=== PATIENT | male | born 1950 | race Caucasian/White ===

== ENCOUNTER 2018-12-23 05:05 | Inpatient (IN) | payer MEDICARE, OTHER ==
[2018-12-23] VITALS (58 sets, daily range): BP systolic 102–221; BP diastolic 51–110; PULSE 33–77; RESP 14–32; Ht 185.4 cm; Wt 136.3 kg
[~2018-12-23] VITALS: Ht 185.4 cm; Wt 136.3 kg
[2018-12-23] MEDS ORDERED: SODIUM CHLORIDE 0.9% 500 ML BAG IV* STA (05:26)
[2018-12-23] MEDS ORDERED: PROPOFOL 100 ML IV STA (05:26)
[2018-12-23] MEDS ORDERED: VECURONIUM 100 MG in DEXTROSE 5% 100 ML IV ONE (05:26)
[2018-12-23] MEDS ORDERED: ALPR0.5T6 PO (05:45)
[2018-12-23] MEDS ORDERED: CAPT25TA3 PO (05:45)
[2018-12-23] MEDS ORDERED: NAPR-985 PO (05:45)
[2018-12-23] MEDS ORDERED: MTF1000T PO (05:45)
[2018-12-23] MEDS ORDERED: ENAL20TA PO (05:45)
[2018-12-23] MEDS ORDERED: LACT10SO36 PO (05:45)
[2018-12-23] MEDS ORDERED: RIVA20TA5 PO (05:45)
[2018-12-23] MEDS ORDERED: ATOR40TA68 PO (05:45)
[2018-12-23] MEDS: SOD CHLORIDE 0.9% 1,000 ML IV SCH ×3 (05:55→20:39)
[2018-12-23] MEDS ORDERED: DOPamine-D5W 1.6 MG/ML 250 ML IV SCH (06:00)
[2018-12-23] MEDS ORDERED: NACL 0.9% 3 ML SYG IV SCH (06:00)
[2018-12-23] MEDS ORDERED: ONDANSETRON 4 MG INJ IV PRN (06:00)
--- NOTE | 2018-12-23 06:04 | ERD ---
ER Documentation Chief Complaint Chief Complaint CARDIAC ARREST; ROSC HPI 68-year-old male here with cardiac arrest. Lost pulses twice in the field. Combitube placed. History is limited per EMS. ROS All systems reviewed and are negative except as per history of present illness. Medications Home Meds Reported Medications Lactulose (Generlac) 10 Gm/15 Ml Solution, 10 GM PO DAILY 12/23/18 Rivaroxaban* (Xarelto*) 20 Mg Tablet, 20 MG PO WITH DINNER, TAB 12/23/18 Metformin* (Glucophage*) 1,000 Mg Tablet, 1000 MG PO BID, #60 TAB 12/23/18 Atorvastatin* (Atorvastatin*) 40 Mg Tablet, 40 MG PO QHS, #30 TAB 12/23/18 Naproxen* (Naprosyn*) 500 Mg Tablet, 500 MG PO DAILY, TAB 12/23/18 Alprazolam* (Alprazolam*) 0.5 Mg Tablet, 0.5 MG PO Q8H PRN for ANXIETY, TAB 12/23/18 Enalapril Maleate* (Enalapril Maleate*) 20 Mg Tablet, 20 MG PO DAILY for 30 Days, #60 12/23/18 Captopril* (Captopril*) 25 Mg Tablet, 25 MG PO BID for 30 Days, #60 12/23/18 Allergies Allergies: Coded Allergies: No Known Allergy (Unverified , 12/23/18) Physical Exam Vitals Vital Signs Date Temp Pulse Resp B/P (MAP) Pulse Ox O2 O2 Flow FiO2 Time Delivery Rate 12/23/18 91 16 96/62 (73) 95 Mechanical 05:46 Ventilator 12/23/18 112 18 94 100 05:35 12/23/18 98.9 92 14 159/78 94 05:07 (105) Physical Exam Const: Obtunded Head: Atraumatic Eyes: Normal Conjunctiva ENT: Normal External Ears, Nose and Mouth. Neck: Full range of motion. No meningismus. Resp: Clear to auscultation bilaterally Cardio: Regular rate and rhythm, no murmurs Abd: Soft, non tender, non distended. Normal bowel sounds Skin: No petechiae or rashes Back: No midline or flank tenderness Ext: No cyanosis, or edema Neur: Obtunded Psych: Deferred Result Diagram: 12/23/18 0515 Results 24 hrs Laboratory Tests Test 12/23/18 05:15 12/23/18 05:23 12/23/18 05:25 White Blood Count 11.7 10^3/ul Red Blood Count 5.55 10^6/ul Hemoglobin 15.5 g/dl Hematocrit 52.2 % Mean Corpuscular Volume 94.1 fl Mean Corpuscular Hemoglobin 27.9 pg Mean Corpuscular 29.7 g/dl Hemoglobin Concent Red Cell Distribution Width 13.2 % Platelet Count 156 10^3/UL Mean Platelet Volume 10.5 fl Immature Granulocytes % 4.200 % Neutrophils % 47.4 % Lymphocytes % 38.9 % Monocytes % 6.7 % Eosinophils % 2.1 % Basophils % 0.7 % Nucleated Red Blood Cells % 0.0 /100WBC Immature Granulocytes # 0.490 10^3/ul Neutrophils # 5.5 10^3/ul Lymphocytes # 4.5 10^3/ul Monocytes # 0.8 10^3/ul Eosinophils # 0.2 10^3/ul Basophils # 0.1 10^3/ul Nucleated Red Blood Cells # 0.0 10^3/ul Prothrombin Time 19.6 Sec Prothrombin Time Ratio 1.5 INR International Normalized Ratio 1.65 Activated Partial Thromboplast 46.3 Sec Time Bedside Glucose 170 mg/dL POC Venous Lactate 10.0 mmol/L Current Medications Medications Dose Sig/[place] Start Time Status Last (Trade) Ordered Route PRN Stop Time Admin Dose Reason Admin Sodium 500 ml ONCE STAT 12/23/18 DC Chloride IV* 05:26 (NS) 12/23/18 05:27 Propofol 100 ml @ ONCE STAT 12/23/18 4.091 mls/ IV 05:26 hr 12/24/18 05:52 Vecuronium 100 ml @ [id number] 12/23/18 [place] 100 8.18 mls/hr ONCE IV 05:26 mg/ Dextrose 12/23/18 17:39 Sodium 1,000 ml @ Q10H IV 12/23/18 12/23/18 Chloride 100 mls/hr 05:44 05:55 IV Flush 3 ml PER 12/23/18 (NS 3 ml) PROTOCOL IV 06:00 Ondansetron 4 mg Q6H PRN 12/23/18 HCl (Zofran IV 06:00 Inj) NAUSEA/VOMITI NG 40 mg DAILY@06 12/23/18 Pantoprazole IV 06:00 (Protonix Iv) Procedures/MDM Emergency department course: Patient lost pulses multiple times in the emergency department. ACLS protocol initiated. Please see nurse's ACLS code sheet. We regained pulses. On-call STEMI cardiology is notified as long with on-call hospitalist. Patient will be going to [facility]ally Impaired [facility]. Started on dopamine EKG: Rate/Rhythm: ST depressions in V4 V5 V6 QRS, ST, T-waves: [No changes consistent w/ acute ischemia] Impression: Posterior wall NE Chest X-ray 1V Interpreted by me: Soft Tissue: No acute abnormalities Bones: No acute abnormalities Mediastinum/Cardiac Silhouette/Lungs: ET tube in good position. Central line in good position. Central Line Placement by me: Patient consented, sterilely draped, full prep, gown, glove, mask, time out performed. Anesthesia: 1% lidocaine locally Location: Left subclavian Device: Multiple lumen Technique: Seldinger technique. Secured with suture. Results: Venous return from all ports with easy saline flush. No complications. [Chest X-ray 1V Interpreted by me: Central line in SVC, Normal soft tissue, No evidence of pneumothorax.] Critical Care: Time: 41 minutes, independent of any separately billable procedural time Treatments/Evaluations: Close monitoring and treatment of unstable vital signs, cardiorespiratory, and neurologic status, while maintaining tight balance of fluid, respiratory, and cardiac interventions. Medical decision making: Unfortunate 68-year-old male with [place]. Started on dopamine central line placed hypothermia initiated. Assistant Finance Director and hospitalist made aware. Patient to go to . Endotracheal Intubation by me: Pre assessment performed. See preceding note for details. Pre-oxygenation performed with 100% oxygen RSI: Performed w/o complication or hypoxic events. Medications as ordered. Blade: [Mac 4] ET Tube: 8.0 cm Depth: 22 cm at the lip Intubation confirmed by colorimetric CO2, equal breath sounds, quiet over the stomach. Chest X-ray 1V Interpreted by me: 2 cm above the helena ET tube. Normal soft tissue, No pneumothorax. Departure Diagnosis: Primary Impression: Cardiac arrest Condition: Critical ELADIA MEDRANO Dec 23, 2018 06:04
--- NOTE | 2018-12-23 06:21 | HP ---
Date/Time of Note Date/Time of Note DATE: 12/23/18 TIME: 06:21 Assessment/Plan VTE Prophylaxis Pharmacological prophylaxis: other Lines/Catheters IV Catheter Type (from Nrs): Saline Lock Assessment/Plan Hospital Course Objective Physical exam General: Patient is intubated, nonresponsive Mentation: Patient is not alert or oriented Head: Normocephalic atraumatic Eyes: EOMI, pupils sluggishly and minimally reactive to light Neck: Supple, nontender, midline Respiratory: Clear to auscultation bilaterally Cardiovascular: regular rate, no obvious murmurs Gastrointestinal: non-tender to palpation, bowel sounds heard. Neurological: Unable to assess, unknown if due to cardiac arrest or due to intubation medication Assessment and plan Cardiopulmonary arrest -Severe ST depressions, likely cardiac cause, on-call ST elevated MD gamer on his way to perform cardiac catheterization -Hypothermia protocol ordered per ED physician -Cardiology recommendations appreciated -Troponins pending, currently negative however likely still on the upslope Acute hypoxic respiratory distress -Secondary to above cardiopulmonary arrest -Intubated -Pulmonology recommendations appreciated Lactic acidosis -Likely secondary to above hypoxic respiratory distress and cardiopulmonary arrest Elevated phosphorus -Likely secondary to above, monitor Elevated INR, PT, PTT -Unknown cause, question cirrhosis? -Patient on his way to cardiac cath, however I recommend further imaging and lab work to investigate once stable ?Diabetes mellitus -Questionable as the report is from the emergency personnel here say, however glucose is elevated, will use sliding scale glucose for now and adjust as needed Disposition -Patient on his way to cardiac cath, will subsequently undergo hypothermia protocol in the ICU, cardiology recommendations as well as pulmonology recommendations appreciated Result Diagram: 12/23/18 0515 12/23/18 0515 Results 24hrs Laboratory Tests Test 12/23/18 05:15 12/23/18 05:23 12/23/18 05:25 White Blood Count 11.7 H Red Blood Count 5.55 Hemoglobin 15.5 Hematocrit 52.2 H Mean Corpuscular Volume 94.1 Mean Corpuscular Hemoglobin 27.9 L Mean Corpuscular Hemoglobin Concent 29.7 L Red Cell Distribution Width 13.2 Platelet Count 156 Mean Platelet Volume 10.5 H Immature Granulocytes % 4.200 H Neutrophils % 47.4 Lymphocytes % 38.9 Monocytes % 6.7 Eosinophils % 2.1 Basophils % 0.7 Nucleated Red Blood Cells % 0.0 Immature Granulocytes # 0.490 H Neutrophils # 5.5 Lymphocytes # 4.5 H Monocytes # 0.8 Eosinophils # 0.2 Basophils # 0.1 Nucleated Red Blood Cells # 0.0 Prothrombin Time 19.6 H Prothrombin Time Ratio 1.5 INR International Normalized Ratio 1.65 Activated Partial Thromboplast Time 46.3 H Sodium Level 140 Potassium Level 4.2 Chloride Level 100 Carbon Dioxide Level 18 L Anion Gap 22 H Blood Urea Nitrogen 11 Creatinine 1.06 Est Glomerular Filtrat Rate mL/min > 60 Glucose Level 254 H Calcium Level 8.9 Phosphorus Level 9.6 H Magnesium Level 2.2 Total Bilirubin 0.4 Direct Bilirubin 0.00 Indirect Bilirubin 0.4 Aspartate Amino Transf (AST/SGOT) 54 H Alanine Aminotransferase (ALT/SGPT) 29 Alkaline Phosphatase 90 Troponin I 0.025 Total Protein 6.6 Albumin 3.9 Globulin 2.70 Albumin/Globulin Ratio 1.44 Bedside Glucose 170 POC Venous Lactate 10.0 *H HPI/ROS Admit Date/Time Admit Date/Time Hx of Present Illness Patient is a 68-year-old gentleman currently intubated who suffered cardiac arrest x3 in the field and currently is not responsive to noxious stimuli. Patient past medical history is uncertain at this time, however according to emergency personnel, patient does have a history of diabetes and insomnia. Patient was found down by his friend or roommate and last known well time was 3 AM. Patient coded twice in the field and coded once in the ED, ST depressions were found by ED physician who promptly called on-call STEMI gamer who is currently on his way to perform cardiac cath. HPI is limited as there are no family members at bedside and story is only secondhand from emergency personnel. Patient is nonresponsive at this time, HPI is limited. PMH/Family/Social Past Medical History Medications Current Medications Propofol 100 ml @ 4.091 mls/ hr ONCE STAT IV Last administered on 12/23/18at 06:02; Admin Dose 4.091 MLS/HR; Start 12/23/18 at 05:26; Stop 12/24/18 at 05:52 Vecuronium [place] 100 mg/ Dextrose 100 ml @ 8.18 mls/hr [id number] ONCE IV ; Start 12/23/18 at 05:26; Stop 12/23/18 at 17:39 Sodium Chloride 1,000 ml @ 100 mls/hr Q10H IV Last administered on 12/23/18at 05:55; Admin Dose 100 MLS/HR; Start 12/23/18 at 05:44 IV Flush (NS 3 ml) 3 ml PER PROTOCOL IV ; Start 12/23/18 at 06:00 Ondansetron HCl (Zofran Inj) 4 mg Q6H PRN IV NAUSEA/VOMITING; Start 12/23/18 at 06:00 Pantoprazole (Protonix Iv) 40 mg DAILY@06 IV ; Start 12/23/18 at 06:00 Dopamine HCl/ Dextrose 250 ml @ 10.227 mls/ hr TITRATE IV Last administered on 12/23/18at 06:02; Admin Dose 25.568 MLS/HR; Start 12/23/18 at 06:00 Miscellaneous Information (* Miscellaneous Pharmacy Order) Discontinue current oral sulfonylur... ONCE ONCE XX ; Start 12/23/18 at 06:30; Stop 12/23/18 at 06:31; Status UNV Diagnostic Test (Pha) (Accu-Chek) XX ; Start 12/24/18 at 02:00; Status UNV Miscellaneous Information (* Miscellaneous Pharmacy Order) HYPOGLYCEMIA PROTOCOL w... ONCE ONCE XX ; Start 12/23/18 at 06:30; Stop 12/23/18 at 06:31; Status UNV Insulin Aspart (Novolog Insulin Pen) NOVOLOG *MILD* ALGORITHM Q4 SC ; Start 12/23/18 at 09:00; Status UNV Miscellaneous Information (* Miscellaneous Pharmacy Order) Discontinue all previ... ONCE ONCE XX ; Start 12/23/18 at 06:30; Stop 12/23/18 at 06:31; Status UNV Coded Allergies: No Known Allergy (Unverified , 12/23/18) Exam/Review of Systems Vital Signs Vitals Vital Signs Date Temp Pulse Resp B/P (MAP) Pulse Ox O2 O2 Flow FiO2 Time Delivery Rate 12/23/18 96 18 128/101 95 Mechanical 06:03 (110) Ventilator 12/23/18 100 05:35 12/23/18 98.9 05:07 CHRISTIE JEFFERS Dec 23, 2018 06:21
[2018-12-23] MEDS ORDERED: HEPARIN 1000 UNITS/ML 10 ML INJ ONE ×2 (06:27→07:28)
[2018-12-23] MEDS ORDERED: IODIXANOL LOCM 100 ML BTL ONE (06:28)
[2018-12-23] MEDS ORDERED: LIDOCAINE 1% (MDV) 20 ML INJ ONE (06:28)
[2018-12-23] MEDS ORDERED: NITROGLYCERIN (IC) 100 MCG/ML INJ ONE (06:28)
[2018-12-23] MEDS ORDERED: VERAPAMIL 5 MG INJ ONE (06:28)
[2018-12-23] MEDS ORDERED: GLUCOSE GEL 15 GRAM TUBE BUCCAL PRN (06:30)
[2018-12-23] MEDS ORDERED: DEXTROSE 50% 50 ML SYRINGE IV PRN ×4 (06:30→10:00)
[2018-12-23] MEDS ORDERED: GLUCOSE GEL 15 GRAM TUBE PO PRN ×2 (06:30)
[2018-12-23] MEDS ORDERED: GLUCAGON 1 MG INJ IM PRN (06:30)
--- NOTE | 2018-12-23 06:33 | CONS ---
Assessment/Plan Assessment/Plan Hospital Course (Demo Recall) Cardiac arrest with ROSC: with diffuse EKG changes, ischemia as the etiology is possible. Electrolytes ok. Will proceed with cardiac cath. Other causes will also need to be evaluated after Lactic acidosis: due to hypoperfusion Acute respiratory failure: intubated due to arrest CAD s/p prior PCI DM HTN ?reason for Xarelto -expedited cardiac cath for evaluation of above -hypothermia immediately after -further recs pending above >40 min critical care time Consultation Date/Type/Reason Admit Date/Time Type of Consult Cardiology Reason for Consultation cardiac arrest with ROSC Requesting Provider: ELADIA MEDRANO Date/Time of Note DATE: 12/23/18 TIME: 06:25 Hx of Present Illness 68 yo M with a h/o DM, CAD, HTN, on Xarelto for ?afib vs DVT/PE, who per report was found unresponsive by his friend and so 911 was called who found him in full arrest. ROSC was achieved in the field and the pt was intubated. In the ER he had PEA arrest again and again ROSC was achieved. EKG showed diffuse significant ST depressions diffusely with RAYRAY in aVR concerning for global ischemia. Adán fields is at bedside and notes pt has had at least one prior stent. per HPI Past Medical History unable to assess. Home Meds Reported Medications Lactulose (Generlac) 10 Gm/15 Ml Solution, 10 GM PO DAILY 12/23/18 Rivaroxaban* (Xarelto*) 20 Mg Tablet, 20 MG PO WITH DINNER, TAB 12/23/18 Metformin* (Glucophage*) 1,000 Mg Tablet, 1000 MG PO BID, #60 TAB 12/23/18 Atorvastatin* (Atorvastatin*) 40 Mg Tablet, 40 MG PO QHS, #30 TAB 12/23/18 Naproxen* (Naprosyn*) 500 Mg Tablet, 500 MG PO DAILY, TAB 12/23/18 Alprazolam* (Alprazolam*) 0.5 Mg Tablet, 0.5 MG PO Q8H PRN for ANXIETY, TAB 12/23/18 Enalapril Maleate* (Enalapril Maleate*) 20 Mg Tablet, 20 MG PO DAILY for 30 Days, #60 12/23/18 Captopril* (Captopril*) 25 Mg Tablet, 25 MG PO BID for 30 Days, #60 2/13/19 Medications Current Medications Propofol 100 ml @ 4.091 mls/ hr ONCE STAT IV Last administered on 12/23/18at 06:02; Admin Dose 4.091 MLS/HR; Start 12/23/18 at 05:26; Stop 12/24/18 at 05:52 Vecuronium [place] 100 mg/ Dextrose 100 ml @ 8.18 mls/hr [id number] ONCE IV ; Start 12/23/18 at 05:26; Stop 12/23/18 at 17:39 Sodium Chloride 1,000 ml @ 100 mls/hr Q10H IV Last administered on 12/23/18at 05:55; Admin Dose 100 MLS/HR; Start 12/23/18 at 05:44 IV Flush (NS 3 ml) 3 ml PER PROTOCOL IV ; Start 12/23/18 at 06:00 Ondansetron HCl (Zofran Inj) 4 mg Q6H PRN IV NAUSEA/VOMITING; Start 12/23/18 at 06:00 Pantoprazole (Protonix Iv) 40 mg DAILY@06 IV ; Start 12/23/18 at 06:00 Dopamine HCl/ Dextrose 250 ml @ 10.227 mls/ hr TITRATE IV Last administered on 12/23/18at 06:02; Admin Dose 25.568 MLS/HR; Start 12/23/18 at 06:00 Miscellaneous Information (* Miscellaneous Pharmacy Order) Discontinue current oral sulfonylur... ONCE ONCE XX ; Start 12/23/18 at 06:30; Stop 12/23/18 at 06:31 Diagnostic Test (Pha) (Accu-Chek) 1 02 XX ; Start 12/24/18 at 02:00 Miscellaneous Information (* Miscellaneous Pharmacy Order) HYPOGLYCEMIA PROTOCOL w... ONCE ONCE XX ; Start 12/23/18 at 06:30; Stop 12/23/18 at 06:31 Insulin Aspart (Novolog Insulin Pen) NOVOLOG *MILD* ALGORITHM Q4 SC ; Start 12/23/18 at 09:00 Miscellaneous Information (* Miscellaneous Pharmacy Order) Discontinue all previ... ONCE ONCE XX ; Start 12/23/18 at 06:30; Stop 12/23/18 at 06:31 Allergies: Coded Allergies: No Known Allergy (Unverified , 12/23/18) Exam/Review of Systems Vital Signs Vitals Vital Signs Date Temp Pulse Resp B/P (MAP) Pulse Ox O2 O2 Flow FiO2 Time Delivery Rate 12/23/18 96 18 128/101 95 Mechanical 06:03 (110) Ventilator 12/23/18 100 05:35 12/23/18 98.9 05:07 Exam Constitutional: No alert Head: normocephalic, atraumatic ENMT: intubated Neck: supple, jvd (9cm) Respiratory: diminished breath sounds; No clear to auscultation Cardiovascular: regular rate and rhythm, systolic murmur (2/6 DMITRI); No edema Gastrointestinal: soft; No distended Neurological: No nl mental status, No nl speech Additional Comments EKG: sinus, diffuse deep ST depressions with ST elevation aVR Labs Result Diagram: 12/23/1815 12/23/18 0515 Results 24hrs Laboratory Tests Test 12/23/18 05:15 12/23/18 05:23 12/23/18 05:25 White Blood Count 11.7 H Red Blood Count 5.55 Hemoglobin 15.5 Hematocrit 52.2 H Mean Corpuscular Volume 94.1 Mean Corpuscular Hemoglobin 27.9 L Mean Corpuscular Hemoglobin Concent 29.7 L Red Cell Distribution Width 13.2 Platelet Count 156 Mean Platelet Volume 10.5 H Immature Granulocytes % 4.200 H Neutrophils % 47.4 Lymphocytes % 38.9 Monocytes % 6.7 Eosinophils % 2.1 Basophils % 0.7 Nucleated Red Blood Cells % 0.0 Immature Granulocytes # 0.490 H Neutrophils # 5.5 Lymphocytes # 4.5 H Monocytes # 0.8 Eosinophils # 0.2 Basophils # 0.1 Nucleated Red Blood Cells # 0.0 Prothrombin Time 19.6 H Prothrombin Time Ratio 1.5 INR International Normalized Ratio 1.65 Activated Partial Thromboplast Time 46.3 H Sodium Level 140 Potassium Level 4.2 Chloride Level 100 Carbon Dioxide Level 18 L Anion Gap 22 H Blood Urea Nitrogen 11 Creatinine 1.06 Est Glomerular Filtrat Rate mL/min > 60 Glucose Level 254 H Calcium Level 8.9 Phosphorus Level 9.6 H Magnesium Level 2.2 Total Bilirubin 0.4 Direct Bilirubin 0.00 Indirect Bilirubin 0.4 Aspartate Amino Transf (AST/SGOT) 54 H Alanine Aminotransferase (ALT/SGPT) 29 Alkaline Phosphatase 90 Troponin I 0.025 Total Protein 6.6 Albumin 3.9 Globulin 2.70 Albumin/Globulin Ratio 1.44 Bedside Glucose 170 POC Venous Lactate 10.0 *H Medications Medications Current Medications Propofol 100 ml @ 4.091 mls/ hr ONCE STAT IV Last administered on 12/23/18at 06:02; Admin Dose 4.091 MLS/HR; Start 12/23/18 at 05:26; Stop 12/24/18 at 05:52 Vecuronium [place] 100 mg/ Dextrose 100 ml @ 8.18 mls/hr [id number] ONCE IV ; Start 12/23/18 at 05:26; Stop 12/23/18 at 17:39 Sodium Chloride 1,000 ml @ 100 mls/hr Q10H IV Last administered on 12/23/18at 05:55; Admin Dose 100 MLS/HR; Start 12/23/18 at 05:44 IV Flush (NS 3 ml) 3 ml PER PROTOCOL IV ; Start 12/23/18 at 06:00 Ondansetron HCl (Zofran Inj) 4 mg Q6H PRN IV NAUSEA/VOMITING; Start 12/23/18 at 06:00 Pantoprazole (Protonix Iv) 40 mg DAILY@06 IV ; Start 12/23/18 at 06:00 Dopamine HCl/ Dextrose 250 ml @ 10.227 mls/ hr TITRATE IV Last administered on 12/23/18at 06:02; Admin Dose 25.568 MLS/HR; Start 12/23/18 at 06:00 Miscellaneous Information (* Miscellaneous Pharmacy Order) Discontinue current oral sulfonylur... ONCE ONCE XX ; Start 12/23/18 at 06:30; Stop 12/23/18 at 06:31 Diagnostic Test (Pha) (Accu-Chek) 1 ea 02 XX ; Start 12/24/18 at 02:00 Miscellaneous Information (* Miscellaneous Pharmacy Order) HYPOGLYCEMIA PROTOCOL w... ONCE ONCE XX ; Start 12/23/18 at 06:30; Stop 12/23/18 at 06:31 Insulin Aspart (Novolog Insulin Pen) NOVOLOG *MILD* ALGORITHM Q4 SC ; Start 12/23/18 at 09:00 Miscellaneous Information (* Miscellaneous Pharmacy Order) Discontinue all prev i... ONCE ONCE XX ; Start 12/23/18 at 06:30; Stop 12/23/18 at 06:31 PHILIPPE BOLAND Dec 23, 2018 06:33
[2018-12-23] MEDS ORDERED: DEXTROSE 50% 50 ML SYRINGE ONE (07:00)
[2018-12-23] MEDS ORDERED: WATER ONE (07:00)
[2018-12-23] MEDS ORDERED: NA BICARBONATE 8.4% 50 ML SYG ONE (07:00)
[2018-12-23] MEDS ORDERED: DOPamine-D5W 1.6 MG/ML 250 ML ONE (07:00)
[2018-12-23] MEDS ORDERED: SODIUM CL BACTERIOSTATIC 30 ML INJ ONE (07:00)
[2018-12-23] MEDS ORDERED: [UNRECOGNIZED DRUG - OTHER] ONE (07:00)
[2018-12-23] MEDS ORDERED: CA CHLORIDE 10% 10 ML SYRINGE ONE (07:00)
[2018-12-23] MEDS ORDERED: EPINEPHrine 0.1 MG/ML SYG ONE (07:00)
[2018-12-23] MEDS ORDERED: hydrALAzine 20 MG INJ ONE (07:07)
[2018-12-23] MEDS ORDERED: NITROGLYCERIN 50 MG/D5W (PMX) 250 ML ONE (07:20)
[2018-12-23] MEDS: NITROGLYCERIN 50 MG/D5W (PMX) 250 ML IV SCH ×2 (08:00→14:51)
--- NOTE | 2018-12-23 08:13 | OPR ---
Date/Time of Note Date/Time of Note DATE: 12/23/18 TIME: 08:00 Operative Report Preoperative Diagnosis cardiac arrest Postoperative Diagnosis same Operation/Procedure Performed see details Surgeon see signature line Acid Tank Liner none Anesthesia Type: moderate sedation Estimated Blood Loss: minimal Transfusion none Specimen none Grafts/Implants none Complications none Procedure Description Procedure Date:12/23/2018 Learning Administrator/surgeon: Ed Carbone MD. Procedures Performed: 1)Left heart catheterization with selective left and right coronary angiography. 2)Left ventricle angiography 3)iFR of left main which was negative Pre-operative Diagnosis:cardiac arrest Post-operative Diagnosis:cardiac arrest Indications: 68 yo M with a h/o CAD, DM, HTN, who was found unresponsive and in cardiac arrest. ROSC was achieved and EKG showed diffuse ST depressions concerning for global ischemia. Description of Procedure: After emergency consent, the patient was brought to the cardiac catheterization lab. The procedure site was prepped and draped in usual manner. 2 mL lidocaine was injected into the right wrist. Next using the posterior wall technique, the 6/5 chadian sheath was inserted into the right radial artery. Next using the JL3.5 and JR4, selective angiography of the left and right coronary arteries were obtained. The pigtail was then advanced into the ventricle and hemodynamics obtained. Left ventricle angiography was obtained. Due to visually estimated 50% distal left main in some views, the decision was made to proceed with iFR of the left main. A 6 chadian JL 3.5 guide was advanced and engaged into the left coronary artery. After appropriate anticoagulation was given, the iFR angioplasty wire was advanced into the ostial LM and normalized and then advanced into the prox LAD. IFR was measured at 0.95. The RCA was not intervened upon as it was unlikely the culprit of the cardiac arrest. If the pt survives the hospitalization and mentation improves, will then proceed with PCI. Next all equipment was removed and hemostasis was achieved by TR band. Findings: Anatomy/Hemodynamics: Left main: distal tapering to about 40-50% LAD: prox stent patent, otherwise luminal irregularities Diagonal:luminal irregularities Circumflex:luminal irregularities Obtuse marginal:luminal irregularities RCA: prox 70-80% lesions PDA:luminal irregularities PLV:luminal irregularities LV angiography: EF 60%, no wall motion abnormalities LV:236/0 Ao:232/96 LVEDP:36 mmHg Contrast used:112 mL Fluoroscopy time: 5 min Medications used: Radial cocktail: heparin 2000, NTG 200, verapamil 2.5 NTG 200mcg x 2 intraarterial Heparin 5000 units prior to iFR Hydralazine 10mg IV x 2 NTG drip Equipment used: 6 chadian JL 3.5 guide iFR wire Estimated blood loss<10 mL. Specimen: none Grafts/implants: none Complications: none Assessment: Cardiac arrest: Though diffuse ischemia by EKG, the coronary findings do not support cardiac etiology. Left main iFR was negative and the RCA does not explain the arrest. CAD: The RCA was not intervened upon as it was unlikely the culprit of the cardiac arrest. If the pt survives the hospitalization and mentation improves, will then proceed with PCI. HTN: BP very elevated and up to 230s during cath despite meds Plan: -r/o ther causes of arrest -check stat head CT especially with uncontrolled HTN -check Utox -at some point eval for PE though already on Xarelto -check echo for RV function -hypothermia ED CARBONE Dec 23, 2018 08:12
[2018-12-23] MEDS ORDERED: MAGNESIUM SULFATE 2 GM/50 ML 50 ML IVPB ONE ×2 (08:30→15:30)
--- NOTE | 2018-12-23 08:30 | NUR ---
PT ADMITTED FROM [facility]. S/P LHC. R WRIST TR BAND IN PLACE. PT INTUBATED AND SEDATED. ON PROPOFOL AND NITRO DRIP. SBP >200, NITRO DRIP INCREASED. PT HAS COOLING PADS ON ALREADY. PT WITH L SUN CLAV TLC. PT WITH ETT 8, LIP 25, AC 20, TV500 100% P5. PT WITH F/C. LABS DRAWN PRIOR TO ICU ARRIVAL. WILL START HYPOTHERMIA COOLING.
--- NOTE | 2018-12-23 08:46 | NUR ---
HYPOTHERMIA COOLING STARTED. PT ON PROPOFOL, SEDATED -4/-5. PT DR SANTANA, START VECURONIUM.
--- NOTE | 2018-12-23 08:50 | NUR ---
Moved ETT in 3cm from 25 to 28 at this time
[2018-12-23] MEDS ORDERED: INSULIN ASPART [NOVOLOG] 3 ML PEN SC SCH (09:00)
[2018-12-23] MEDS: ACCU-CHEK XX SCH ×14 (10:00→23:08)
[2018-12-23] MEDS ORDERED: VECURONIUM 100 MG in DEXTROSE 5% 100 ML IV SCH (10:30)
[2018-12-23] MEDS ORDERED: PROPOFOL 100 ML IV SCH (10:30)
[2018-12-23] MEDS: PROPOFOL 100 ML IV SCH ×2 (11:07→19:04)
[2018-12-23] MEDS: PANTOPRAZOLE 40 MG INJ IV SCH (11:10)
[2018-12-23] MEDS: INSULIN HUMAN REGULAR 100 UNIT in SOD CHLORIDE 0.9% 99 ML IV SCH (11:42)
--- NOTE | 2018-12-23 11:45 | NUR ---
HYPOTHERMIA COOLING PHASE REACHED.
[2018-12-23] MEDS: FENTAnyl (DRIP) 1000 mcg/100mL 100 ML IV SCH (11:55)
--- NOTE | 2018-12-23 12:08 | NUR ---
SS NOTE: CONSULT PT ADMITTED FROM HOME DUE TO RESP. DISTRESS. RNJANELL REPORTED THAT PT HAD 2 EPISODES OF BEING PULSELESS ON HIS WAY TO THE HOSPITAL AND AGAIN IN ED. PT CURRENTLY INTUBATED AND ON HYPOTHERMIA PROTOCOL. PT'S S/O HAD NOTICED THAT HE WAS NOT BREATHING WELL AND HAD CALLED 911. SW MET WITH PT'S DTR, WILLIE WHO REPORTED THAT PT IS NOT AND LIVES ALONE. PT HAS BEEN INDEPENDENT WITH ADL'S PRIOR TO HIS HOSPITALIZATION. DTR REPORTED THAT PT HAS 2 DTRS AND 1 SON. DOES NOT HAVE AHCD AND CHILDREN WILL MAKE DECISIONS FOR PT NEEDED. SW ENCOURAGED DTR TO DISCUSS WITH HER SIBLINGS TO WHO WOULD BE PT'S SPOKESPERSON SO THAT THE MEDICAL TEAM WOULD KNOW WHO TO CONTACT WITH UPDATES AND IN CASE OF EMERGENCY. DTR VERBALIZED UNDERSTANDING. PT'S OTHER DTR IS LORNE , AND SON, RONNIE . SW WILL CONTINUE TO REMAIN AVAILABLE NEEDED. Addendum: 12/23/18 at 1242 by EUGENE MOTA LCSW JESUS NOTE: FAXED UPDATED FAMILY CONTACT INFO TO ADMITTING TO UPDATE PT'S FACE SHEET.
--- NOTE | 2018-12-23 12:29 | CONS ---
DATE OF ADMISSION: 12/23/2018 DATE OF CONSULTATION: 12/23/2018 REASON FOR CONSULTATION: Ventilator management, cardiopulmonary arrest. HISTORY OF PRESENT ILLNESS: This is an unfortunate 68-year-old gentleman who has multiple medical pr oblems including coronary artery disease, hypertension, hyperlipidemia, diabetes mellitus, who was pr eviously on anticoagulation, found unresponsive in full cardiac arrest, underwent CPR with return of circulation, was found to have diffuse ST depressions emergently taken to cardiac catheterization lab but no target lesions identified. Transferred to intensive care unit, placed on hypothermia protoco l. PAST MEDICAL HISTORY: As above. MEDICATIONS: Per chart. ALLERGIES: None. TOBACCO HISTORY: None. SYSTEMS REVIEW: A 12-point review of systems unable to perform. PHYSICAL EXAMINATION: GENERAL: Morbidly obese gentleman, orally intubated on mechanical ventilation, currently on hypother anusha protocol. VITAL SIGNS: Temperature is 34, pulse is 87, blood pressure 170/62, O2 saturation 96%, FIO2 of 100%. NECK: Supple. No JVD or lymphadenopathy. CARDIAC: S1, S2, no added sounds or murmurs. CHEST: Diminished air entry bilaterally. ABDOMEN: Soft, nontender. No guarding or rebound. EXTREMITIES: No cyanosis, clubbing, 1+ edema. NEUROLOGIC: Generalized weakness, unable to assess. LABORATORY DATA: White count 15.1, hemoglobin 17.2, platelets of 163. BUN 14, creatinine 1.24. Lac tic acid initially 6.7. Troponin 0.69. INR was 1.64. Arterial blood gas pH 7.242, pCO2 of 44, pO2 55 on 100% FIO2 and a PEEP of 5. IMPRESSION AND PLAN: 1. Cardiopulmonary arrest with no identified target lesions. 2. History of coronary artery disease. 3. History of diabetes mellitus. 4. Possible aspiration pneumonia. The patient will require: 1. Continued hypothermia protocol with the initiation of fentanyl and vecuronium. 2. Continue mechanical ventilation, adjust for metabolic acidosis. 3. Serial blood gases and Chem-7. 4. Obtain prior cardiac history. 5. Neurology evaluation if no significant improvement in the next 48 to 72 hours. 6. Deep vein thrombosis and gastrointestinal prophylaxis. 7. Antibiotics for likely aspiration pneumonia. Dictated By: ALFONSO SANTANA MD SV/LUBNA Conf#: [id number] DID#: [id number] CC: CHRISTIE JEFFERS MD;*EndCC*
[2018-12-23] MEDS: ARTIFICIAL TEARS 15 ML OPH BOTH EYES SCH ×2 (13:00→20:01)
[2018-12-23] MEDS ORDERED: ACETAMINOPHEN 325 MG TAB NGT PRN (13:00)
[2018-12-23] MEDS ORDERED: ARTIFICIAL TEARS 15 ML OPH BOTH EYES PRN (13:00)
[2018-12-23] MEDS: BUSPIRONE 5 MG TAB NGT SCH ×2 (14:37→22:53)
[2018-12-23] MEDS: OCULAR LUBRICANT 3.5 GM OPH OINT BOTH EYES SCH ×2 (14:38→20:01)
[2018-12-23] MEDS: ACETAMINOPHEN 325 MG TAB NGT SCH ×2 (14:38→22:04)
[2018-12-23] MEDS: PIPER-TAZO 3.375 GM IV (PMX) 100 ML IVPB SCH ×2 (14:45→21:55)
--- NOTE | 2018-12-23 15:45 | NUR ---
WOUND CARE ICU ROUNDS RECOMMENDATION: RECOMMENDATIONS: 1.OFFLOADING: Turning and repositioning q 2 hours Specialty Bed Low air loss surface Sacrococcyx: Cover with foam border dressing for prophylactic protection. Change foam dressing every 3 days and as needed. Assess skin under dressing every shift. 2. Heels off-loading: Pillows: Please ensure heels off bed when using pillows for off-loading Bilateral heels and ankles: Protect with foam dressing (Allevyn heels): Change foam dressing every 3 days and as needed. Assess skin under dressing every shift. 3. ACCORDION MAKER RELATED AREAS OF CONCERN -ETT Tube Reposition per RT 4. INCONTINENCE CARE: -Pericare: Cleanse with foam cleanser. Pat dry. Apply Barrier cream (Calazime) every shift and as needed. Eleni Palencia, MSN, RN, CCRN, WCC
[2018-12-23] MEDS ORDERED: SOD CHLORIDE 0.9% 500 ML IV ONE ×2 (16:00→18:00)
[2018-12-23] MEDS ORDERED: MAGNESIUM SULFATE 2 GM/50 ML 50 ML IVPB PRN (16:00)
--- NOTE | 2018-12-23 18:34 | PN ---
Date/Time of Note Date/Time of Note DATE: 12/23/18 TIME: 18:30 Assessment/Plan VTE Prophylaxis Risk score (from [facility])>0 risk: 11 SCD applied (from [facility]): Yes SCD contraindicated: low risk/ambulating Pharmacological prophylaxis: NA/contraindicated Pharm contraindication: anticoag not tolerated Lines/Catheters IV Catheter Type (from [facility] Central Line Central line still needed: Yes Urinary Cath still in place: No Assessment/Plan Hospital Course A/P 1 Out Of Hospital Arrest; sp cpr; cont cooling measures 2 CAD? 3 Htn 4 Tobacco 5 Oliguria/ Atn S: on cooling measures. updated family; no recent events apparently. has relatives that work here. O: sr PE no pallor/ c bruits/ droop reg s1s2 no mrg ctab/ mechanical bs dimin; nt nd; no rrg no edema/ Homans; dry lwr ext Result Diagram: 12/23/18 1802 12/23/18 0753 Results 24hrs Laboratory Tests Test 12/23/18 05:15 12/23/18 05:23 12/23/18 05:25 12/23/18 05:26 White Blood 11.7 H Count Red Blood Count 5.55 Hemoglobin 15.5 Hematocrit 52.2 H Mean Corpuscular 94.1 Volume Mean Corpuscular 27.9 L Hemoglobin Mean Corpuscular 29.7 L Hemoglobin Anca nt Red Cell 13.2 Distribution Width Platelet Count 156 Mean Platelet 10.5 H Volume Immature 4.200 H Granulocytes % Neutrophils % 47.4 Lymphocytes % 38.9 Monocytes % 6.7 Eosinophils % 2.1 Basophils % 0.7 Nucleated Red 0.0 Blood Cells % Immature 0.490 H Granulocytes # Neutrophils # 5.5 Lymphocytes # 4.5 H Monocytes # 0.8 Eosinophils # 0.2 Basophils # 0.1 Nucleated Red 0.0 Blood Cells # Prothrombin Time 19.6 H Prothrombin Time 1.5 Ratio INR 1.65 International Normalized Ratio Activated 46.3 H Partial Thrombop last Time Sodium Level 140 Potassium Level 4.2 Chloride Level 100 Carbon Dioxide 18 L Level Anion Gap 22 H Blood Urea 11 Nitrogen Creatinine 1.06 Est Glomerular > 60 Filtrat Rate mL/min Glucose Level 254 H Calcium Level 8.9 Phosphorus Level 9.6 H Magnesium Level 2.2 Total Bilirubin 0.4 Direct Bilirubin 0.00 Indirect 0.4 Bilirubin Aspartate Amino 54 H Transf (AST/SGOT ) Alanine 29 Aminotransferase (ALT/SGPT) Alkaline 90 Phosphatase Troponin I 0.025 Total Protein 6.6 Albumin 3.9 Globulin 2.70 Albumin/Globulin 1.44 Ratio Bedside Glucose 170 POC Venous 10.0 *H Lactate Blood Gas Blood arterial Specimen Source Arterial Blood 12/23/2018 6:20: Date Drawn 40 AM Arterial Blood 6.997 *L pH (Temp corrected) Arterial Blood 58.7 H pCO2 (Temp correct) Arterial Blood 160.1 H pO2 (Temp corrected) Arterial Blood 14.1 L HCO3 Arterial Blood -18.0 L Base Excess Arterial Blood 97.9 Oxygen Saturatio n Jack Test ACCEPTAB Arterial Blood Left Radial Gas Puncture Site Arterial 3.7 H Blood Carboxyhem oglobin Arterial Blood 0.5 Methemoglobin Blood Gas A-a O2 494.2 H Differential Oxyhemoglobin 93.8 Percent Blood Gas 37.0 Temperature Blood Gas 18.0 Respiration Rate Blood Gas Actual 22 Respiration Rate Blood Gas VENT - AC Modality FiO2 100.0 Blood Gas Tidal 500.0 Volume Blood Gas Low 5.0 PEEP Setting Blood Gas DR MEDRANO Critical Value Read Back Blood Gas TM Notified Whom Blood Gas 12/23/2018 6:29: Notified Time 44 AM Test 12/23/18 06:26 12/23/18 07:53 12/23/18 07:58 12/23/18 09:44 Urine Color STRAW Urine Clarity SLIGHTLY CLOUDY A Urine pH 7.0 Urine Specific 1.009 [place] Urine Ketones NEGATIVE Urine Nitrite NEGATIVE Urine Bilirubin NEGATIVE Urine NEGATIVE Urobilinogen Urine Leukocyte NEGATIVE Esterase Urine 5 Microscopic RBC Urine 3 Microscopic WBC Urine Bacteria FEW A Urine Hemoglobin 1+ H Urine Glucose NEGATIVE Urine Total 2+ H Protein White Blood 15.1 #H Count Red Blood Count 6.26 H Hemoglobin 17.2 Hematocrit 55.1 H Mean Corpuscular 88.0 Volume Mean Corpuscular 27.5 L Hemoglobin Mean Corpuscular 31.2 L Hemoglobin Anca nt Red Cell 13.2 Distribution Width Platelet Count 163 Mean Platelet 9.9 Volume Immature 2.700 H Granulocytes % Neutrophils % Segmented 82 H Neutrophils % (Manual) Band Neutrophils 6 H % (Manual) Lymphocytes % Lymphocytes % 9 L (Manual) Monocytes % Monocytes % 1 (Manual) Eosinophils % Eosinophils % 1 (Manual) Basophils % Metamyelocytes % 1 H (manual) Nucleated Red 0.2 H Blood Cells % Immature 0.410 H Granulocytes # Neutrophils # Neutrophils # 12.5 H (Manual) Band Neutrophils 0.9 H # Lymphocytes 1.3 (Manual) Lymphocytes # Monocytes # Monocytes # 0.1 L (Manual) Eosinophils # Basophils # Metamyelocytes # 0.1 H Nucleated Red Blood Cells # Platelet NORMAL Estimate Giant Platelets 1 H Polychromasia 2+ Poikilocytosis 1+ Anisocytosis 2+ Microcytosis 1+ Macrocytosis 2+ Prothrombin Time 19.5 H Prothrombin Time 1.5 Ratio INR 1.64 International Normalized Ratio Activated > 180.0 *H Partial Thrombop last Time Fibrinogen 348.0 Sodium Level 136 Potassium Level 5.5 H Chloride Level 103 Carbon Dioxide 18 L Level Anion Gap 15 #H Blood Urea 14 Nitrogen Creatinine 1.24 Est Glomerular 58 L Filtrat Rate mL/min Glucose Level 264 H Calcium Level 9.2 Magnesium Level 1.8 Troponin I 0.691 *H Amylase Level 81 Lipase 361 H Lactic Acid 6.7 *H Level Triglycerides 90 Level Cholesterol 166 Level LDL Cholesterol, 107 Calculated HDL Cholesterol 41 Cholesterol/HDL 4.0 Ratio Thyroid 5.460 H Stimulating Hormone (TSH) Bedside Glucose 220 Test 12/23/18 10:23 12/23/18 11:39 12/23/18 11:48 12/23/18 13:10 Blood Gas Blood arterial Specimen Source Arterial Blood 12/23/2018 10:35 Date Drawn :39 AM Arterial Blood 7.225 *L pH (Temp corrected) Arterial Blood 44.8 pCO2 (Temp correct) Arterial Blood 55.0 L pO2 (Temp corrected) Arterial Blood 18.6 L HCO3 Arterial Blood -9.7 L Base Excess Arterial Blood 88.2 L Oxygen Saturatio n Jack Test ACCEPTAB Arterial Blood Left Radial Gas Puncture Site Arterial 1.0 Blood Carboxyhem oglobin Arterial Blood 0.3 Methemoglobin Blood Gas A-a O2 618.4 H Differential Oxyhemoglobin 87.1 L Percent Blood Gas 34.9 Temperature Blood Gas 20.0 Respiration Rate Blood Gas Actual 20 Respiration Rate Blood Gas VENT - AC Modality FiO2 100.0 Blood Gas Tidal 500.0 Volume Blood Gas Low 5.0 PEEP Setting Blood Gas RLIM RN Critical Value Read Back Blood Gas TM Notified Whom Blood Gas 12/23/2018 10:43 Notified Time :24 AM Bedside Glucose 204 221 H Troponin I 2.510 *H Test 12/23/18 14:11 12/23/18 15:09 12/23/18 16:14 12/23/18 17:00 Bedside Glucose 192 172 172 Blood Gas Blood arterial Specimen Source Arterial Blood 12/23/2018 4:13: Date Drawn 44 PM Arterial Blood 7.311 L pH (Temp corrected) Arterial Blood 35.5 pCO2 (Temp correct) Arterial Blood 100.7 H pO2 (Temp corrected) Arterial Blood 18.2 L HCO3 Arterial Blood -8.3 L Base Excess Arterial Blood 97.9 Oxygen Saturatio n Jack Test ACCEPTAB Arterial Blood Left Radial Gas Puncture Site Arterial 0.3 Blood Carboxyhem oglobin Arterial Blood 0.5 Methemoglobin Blood Gas A-a O2 584.7 H Differential Oxyhemoglobin 97.1 Percent Blood Gas 33.7 Temperature Blood Gas 24.0 Respiration Rate Blood Gas Actual 24 Respiration Rate Blood Gas VENT - AC Modality FiO2 100.0 Blood Gas Tidal 550.0 Volume Blood Gas Low 8.0 PEEP Setting Blood Gas LORENA SILVERMAN Critical Value Read Back Blood Gas KEVIN JADE Notified Whom Blood Gas 12/23/2018 4:29: Notified Time 04 PM Test 12/23/18 17:07 12/23/18 18:01 12/23/18 18:02 Bedside Glucose 157 136 White Blood 14.8 H Count Red Blood Count 6.00 Hemoglobin 16.7 Hematocrit 51.6 Mean Corpuscular 86.0 Volume Mean Corpuscular 27.8 L Hemoglobin Mean Corpuscular 32.4 Hemoglobin Anca nt Red Cell 13.4 Distribution Width Platelet Count 149 Mean Platelet 9.5 Volume Immature 0.700 H Granulocytes % Neutrophils % 90.8 H Lymphocytes % 3.5 L Monocytes % 4.6 Eosinophils % 0.1 Basophils % 0.3 Nucleated Red 0.0 Blood Cells % Immature 0.110 H Granulocytes # Neutrophils # 13.4 H Lymphocytes # 0.5 L Monocytes # 0.7 Eosinophils # 0.0 Basophils # 0.0 Nucleated Red 0.0 Blood Cells # Exam/Review of Systems Exam Vitals Vital Signs Date Temp Pulse Resp B/P (MAP) Pulse Ox O2 O2 Flow FiO2 Time Delivery Rate 12/23/18 80 16:30 12/23/18 37 16:00 12/23/18 92.3 15:23 12/23/18 20 127/67 99 11:45 (87) 12/23/18 Mechanical 06:30 Ventilator Results Results 24hrs Laboratory Tests Test 12/23/18 05:15 12/23/18 05:23 12/23/18 05:25 12/23/18 05:26 White Blood 11.7 H Count Red Blood Count 5.55 Hemoglobin 15.5 Hematocrit 52.2 H Mean Corpuscular 94.1 Volume Mean Corpuscular 27.9 L Hemoglobin Mean Corpuscular 29.7 L Hemoglobin Anca nt Red Cell 13.2 Distribution Width Platelet Count 156 Mean Platelet 10.5 H Volume Immature 4.200 H Granulocytes % Neutrophils % 47.4 Lymphocytes % 38.9 Monocytes % 6.7 Eosinophils % 2.1 Basophils % 0.7 Nucleated Red 0.0 Blood Cells % Immature 0.490 H Granulocytes # Neutrophils # 5.5 Lymphocytes # 4.5 H Monocytes # 0.8 Eosinophils # 0.2 Basophils # 0.1 Nucleated Red 0.0 Blood Cells # Prothrombin Time 19.6 H Prothrombin Time 1.5 Ratio INR 1.65 International Normalized Ratio Activated 46.3 H Partial Thrombop last Time Sodium Level 140 Potassium Level 4.2 Chloride Level 100 Carbon Dioxide 18 L Level Anion Gap 22 H Blood Urea 11 Nitrogen Creatinine 1.06 Est Glomerular > 60 Filtrat Rate mL/min Glucose Level 254 H Calcium Level 8.9 Phosphorus Level 9.6 H Magnesium Level 2.2 Total Bilirubin 0.4 Direct Bilirubin 0.00 Indirect 0.4 Bilirubin Aspartate Amino 54 H Transf (AST/SGOT ) Alanine 29 Aminotransferase (ALT/SGPT) Alkaline 90 Phosphatase Troponin I 0.025 Total Protein 6.6 Albumin 3.9 Globulin 2.70 Albumin/Globulin 1.44 Ratio Bedside Glucose 170 POC Venous 10.0 *H Lactate Blood Gas Blood arterial Specimen Source Arterial Blood 12/23/2018 6:20: Date Drawn 40 AM Arterial Blood 6.997 *L pH (Temp corrected) Arterial Blood 58.7 H pCO2 (Temp correct) Arterial Blood 160.1 H pO2 (Temp corrected) Arterial Blood 14.1 L HCO3 Arterial Blood -18.0 L Base Excess Arterial Blood 97.9 Oxygen Saturatio n Jack Test ACCEPTAB Arterial Blood Left Radial Gas Puncture Site Arterial 3.7 H Blood Carboxyhem oglobin Arterial Blood 0.5 Methemoglobin Blood Gas A-a O2 494.2 H Differential Oxyhemoglobin 93.8 Percent Blood Gas 37.0 Temperature Blood Gas 18.0 Respiration Rate Blood Gas Actual 22 Respiration Rate Blood Gas VENT - AC Modality FiO2 100.0 Blood Gas Tidal 500.0 Volume Blood Gas Low 5.0 PEEP Setting Blood Gas DR MEDRANO Critical Value Read Back Blood Gas TM Notified Whom Blood Gas 12/23/2018 6:29: Notified Time 44 AM Test 12/23/18 06:26 12/23/18 07:53 12/23/18 07:58 12/23/18 09:44 Urine Color STRAW Urine Clarity SLIGHTLY CLOUDY A Urine pH 7.0 Urine Specific 1.009 [place] Urine Ketones NEGATIVE Urine Nitrite NEGATIVE Urine Bilirubin NEGATIVE Urine NEGATIVE Urobilinogen Urine Leukocyte NEGATIVE Esterase Urine 5 Microscopic RBC Urine 3 Microscopic WBC Urine Bacteria FEW A Urine Hemoglobin 1+ H Urine Glucose NEGATIVE Urine Total 2+ H Protein White Blood 15.1 #H Count Red Blood Count 6.26 H Hemoglobin 17.2 Hematocrit 55.1 H Mean Corpuscular 88.0 Volume Mean Corpuscular 27.5 L Hemoglobin Mean Corpuscular 31.2 L Hemoglobin Anca nt Red Cell 13.2 Distribution Width Platelet Count 163 Mean Platelet 9.9 Volume Immature 2.700 H Granulocytes % Neutrophils % Segmented 82 H Neutrophils % (Manual) Band Neutrophils 6 H % (Manual) Lymphocytes % Lymphocytes % 9 L (Manual) Monocytes % Monocytes % 1 (Manual) Eosinophils % Eosinophils % 1 (Manual) Basophils % Metamyelocytes % 1 H (manual) Nucleated Red 0.2 H Blood Cells % Immature 0.410 H Granulocytes # Neutrophils # Neutrophils # 12.5 H (Manual) Band Neutrophils 0.9 H # Lymphocytes 1.3 (Manual) Lymphocytes # Monocytes # Monocytes # 0.1 L (Manual) Eosinophils # Basophils # Metamyelocytes # 0.1 H Nucleated Red Blood Cells # Platelet NORMAL Estimate Giant Platelets 1 H Polychromasia 2+ Poikilocytosis 1+ Anisocytosis 2+ Microcytosis 1+ Macrocytosis 2+ Prothrombin Time 19.5 H Prothrombin Time 1.5 Ratio INR 1.64 International Normalized Ratio Activated > 180.0 *H Partial Thrombop last Time Fibrinogen 348.0 Sodium Level 136 Potassium Level 5.5 H Chloride Level 103 Carbon Dioxide 18 L Level Anion Gap 15 #H Blood Urea 14 Nitrogen Creatinine 1.24 Est Glomerular 58 L Filtrat Rate mL/min Glucose Level 264 H Calcium Level 9.2 Magnesium Level 1.8 Troponin I 0.691 *H Amylase Level 81 Lipase 361 H Lactic Acid 6.7 *H Level Triglycerides 90 Level Cholesterol 166 Level LDL Cholesterol, 107 Calculated HDL Cholesterol 41 Cholesterol/HDL 4.0 Ratio Thyroid 5.460 H Stimulating Hormone (TSH) Bedside Glucose 220 Test 12/23/18 10:23 12/23/18 11:39 12/23/18 11:48 12/23/18 13:10 Blood Gas Blood arterial Specimen Source Arterial Blood 12/23/2018 10:35 Date Drawn :39 AM Arterial Blood 7.225 *L pH (Temp corrected) Arterial Blood 44.8 pCO2 (Temp correct) Arterial Blood 55.0 L pO2 (Temp corrected) Arterial Blood 18.6 L HCO3 Arterial Blood -9.7 L Base Excess Arterial Blood 88.2 L Oxygen Saturatio n Jack Test ACCEPTAB Arterial Blood Left Radial Gas Puncture Site Arterial 1.0 Blood Carboxyhem oglobin Arterial Blood 0.3 Methemoglobin Blood Gas A-a O2 618.4 H Differential Oxyhemoglobin 87.1 L Percent Blood Gas 34.9 Temperature Blood Gas 20.0 Respiration Rate Blood Gas Actual 20 Respiration Rate Blood Gas VENT - AC Modality FiO2 100.0 Blood Gas Tidal 500.0 Volume Blood Gas Low 5.0 PEEP Setting Blood Gas RLIM RN Critical Value Read Back Blood Gas TM Notified Whom Blood Gas 12/23/2018 10:43 Notified Time :24 AM Bedside Glucose 204 221 H Troponin I 2.510 *H Test 12/23/18 14:11 12/23/18 15:09 12/23/18 16:14 12/23/18 17:00 Bedside Glucose 192 172 172 Blood Gas Blood arterial Specimen Source Arterial Blood 12/23/2018 4:13: Date Drawn 44 PM Arterial Blood 7.311 L pH (Temp corrected) Arterial Blood 35.5 pCO2 (Temp correct) Arterial Blood 100.7 H pO2 (Temp corrected) Arterial Blood 18.2 L HCO3 Arterial Blood -8.3 L Base Excess Arterial Blood 97.9 Oxygen Saturatio n Jack Test ACCEPTAB Arterial Blood Left Radial Gas Puncture Site Arterial 0.3 Blood Carboxyhem oglobin Arterial Blood 0.5 Methemoglobin Blood Gas A-a O2 584.7 H Differential Oxyhemoglobin 97.1 Percent Blood Gas 33.7 Temperature Blood Gas 24.0 Respiration Rate Blood Gas Actual 24 Respiration Rate Blood Gas VENT - AC Modality FiO2 100.0 Blood Gas Tidal 550.0 Volume Blood Gas Low 8.0 PEEP Setting Blood Gas LORENA SILVERMAN Critical Value Read Back Blood Gas KimMALICK RT Notified Whom Blood Gas 12/23/2018 4:29: Notified Time 04 PM Test 12/23/18 17:07 12/23/18 18:01 12/23/18 18:02 Bedside Glucose 157 136 White Blood 14.8 H Count Red Blood Count 6.00 Hemoglobin 16.7 Hematocrit 51.6 Mean Corpuscular 86.0 Volume Mean Corpuscular 27.8 L Hemoglobin Mean Corpuscular 32.4 Hemoglobin Anca nt Red Cell 13.4 Distribution Width Platelet Count 149 Mean Platelet 9.5 Volume Immature 0.700 H Granulocytes % Neutrophils % 90.8 H Lymphocytes % 3.5 L Monocytes % 4.6 Eosinophils % 0.1 Basophils % 0.3 Nucleated Red 0.0 Blood Cells % Immature 0.110 H Granulocytes # Neutrophils # 13.4 H Lymphocytes # 0.5 L Monocytes # 0.7 Eosinophils # 0.0 Basophils # 0.0 Nucleated Red 0.0 Blood Cells # Medications Medication Current Medications Sodium Chloride 1,000 ml @ 100 mls/hr Q10H IV Last administered on 12/23/18at 09:49; Admin Dose 100 MLS/HR; Start 12/23/18 at 05:44 IV Flush (NS 3 ml) 3 ml PER PROTOCOL IV ; Start 12/23/18 at 06:00 Ondansetron HCl (Zofran Inj) 4 mg Q6H PRN IV NAUSEA/VOMITING; Start 12/23/18 at 06:00 Pantoprazole (Protonix Iv) 40 mg DAILY@06 IV Last administered on 12/23/18at 11:10; Admin Dose 40 MG; Start 12/23/18 at 06:00 Diagnostic Test (Pha) (Accu-Chek) 1 ea 02 XX ; Start 12/24/18 at 02:00 Insulin Aspart (Novolog Insulin Pen) NOVOLOG *MILD* ALGORITHM Q4 SC ; Start 12/23/18 at 09:00; Status Hold Miscellaneous Information 1 ea NOTE XX ; Start 12/23/18 at 06:30 Glucose (Glutose) 15 gm Q15M PRN PO DECREASED GLUCOSE; Start 12/23/18 at 06:30 Glucose (Glutose) 22.5 gm Q15M PRN PO DECREASED GLUCOSE; Start 12/23/18 at 06:30 Dextrose (D50w Syringe) 25 ml Q15M PRN IV DECREASED GLUCOSE; Start 12/23/18 at 06:30 Dextrose (D50w Syringe) 50 ml Q15M PRN IV DECREASED GLUCOSE; Start 12/23/18 at 06:30 Glucagon (Glucagen) 1 mg Q15M PRN IM DECREASED GLUCOSE; Start 12/23/18 at 06:30 Glucose (Glutose) 15 gm Q15M PRN BUCCAL DECREASED GLUCOSE; Start 12/23/18 at 06:30 Fentanyl 100 ml @ 2.5 mls/hr TITRATE IV Last administered on 12/23/18at 11:55; Admin Dose 2.5 MLS/HR; Start 12/23/18 at 10:00 Diagnostic Test (Pha) (Accu-Chek) 1 ea Q1H XX Last administered on 12/23/18at 18:02; Admin Dose 1 EA; Start 12/23/18 at 10:00 Insulin Human Regular 100 unit/ Sodium Chloride 100 ml @ 0 mls/hr PER PROTOCOL IV Last administered on 12/23/18at 11:42; Admin Dose 2 MLS/HR; Start 12/23/18 at 10:00 Miscellaneous Information (* Miscellaneous Pharmacy Order) Treatment of Hypoglycemia: 1.BG 51... Per protocol XX ; Start 12/23/18 at 10:00 Dextrose (D50w Syringe) 25 ml Q15M PRN IV .DECREASED GLUCOSE; Start 12/23/18 at 10:00 Dextrose (D50w Syringe) 50 ml Q15M PRN IV .DECREASED GLUCOSE; Start 12/23/18 at 10:00 Vecuronium [place]ard 100 mg/ Dextrose 100 ml @ 0 mls/hr TITRATE IV ; Start 12/23/18 at 10:30 Propofol 100 ml @ 4.091 mls/ hr Q12H IV Last administered on 12/23/18at 11:07; Admin Dose 12.272 MLS/HR; Start 12/23/18 at 11:00 Piperacillin Sod/ Tazobactam Sod 100 ml @ 200 mls/hr Q8 IVPB Last administered on 12/23/18at 14:45; Admin Dose 200 MLS/HR; Start 12/23/18 at 14:00 Eye Lubricant (Akwa Oint) 1 applic Q6H BOTH EYES Last administered on 12/23/18at 14:38; Admin Dose 1 APPLIC; Start 12/23/18 at 13:00 Nitroglycerin/ Dextrose 250 ml @ 1.5 mls/hr TITRATE IV Last administered on 12/23/18at 14:51; Admin Dose 6 MLS/HR; Start 12/23/18 at 13:00 Buspirone HCl (Buspar) 30 mg Q8 NGT Last administered on 12/23/18at 14:37; Admin Dose 30 MG; Start 12/23/18 at 14:00 Acetaminophen (Tylenol Tab) 650 mg Q8 NGT Last administered on 12/23/18at 14:38; Admin Dose 650 MG; Start 12/23/18 at 14:00 Eye Lubricant (Artificial Tears Oph) 2 drop Q6H BOTH EYES Last administered on 12/23/18 13:00; Admin Dose 2 DROP; Start 12/23/18 at 19:00 Potassium Chloride 50 ml @ 50 mls/hr K PROTOCOL PRN IVPB PENDING LAB VALUE; Start 12/23/18 at 15:30 Magnesium Sulfate 50 ml @ 25 mls/hr PRN PRN IVPB MAG <2; Start 12/23/18 at 16:00 Midazolam HCl 50 ml @ 1 mls/hr TITRATE IV ; Start 12/23/18 at 16:30 Sodium Chloride 500 ml @ 500 mls/hr Q1H ONCE IV ; Start 12/23/18 at 18:00; Stop 12/23/18 at 18:59 Thiamine HCl (Vitamin B1) 100 mg DAILY IM ; Start 12/23/18 at 19:30 KELL VILLA MD Dec 23, 2018 18:34
--- NOTE | 2018-12-23 19:30 | NUR ---
END OF SHIFT NOTE. PT REMAINS INTUBATED AND SEDATED. VEC TURNED OFF FOR TOF 0/4. PROPOFOL 15MC TO BE SWITCHED TO VERSED, ENDORSED TO SUPERINTENDENT MARINE OIL TERMINAL RN. HR SB 35-37,SBP 130-140, PT ON NITRO DRIP @ 40MC. PT ON INSULIN DRIP 3 UNITS/HR, ALGO III. LAST B/G 135. PT ALSO ON FENTANYL DRIP, 25MC. HYPOTHERMIA COOLING STARTED AT 0846, COOLING TEMP REACHED AT 1145. PT HAD A YELLOW COLORED RING WITH SPARKLING STONE ON FINGER OF LEFT HAND WELL BOTTOM FULL DENTURES, BOTH GIVEN TO PT'S DAUGHTER WILLIE TO TAKE HOME. PT WITH F/C, LOW U/O 500ML NS BOLUS GIVEN. PER MD IF STILL LOW U/O, GIVE ANOTHER 500ML BOLUS. OGT IN PLACE. PT'S FAMILY STATED PT MAY HAVE TAKEN A TYPE OF VIAGRA, BUT UNSURE IF PT DID.
[2018-12-23] MEDS: THIAMINE 200 MG INJ IM SCH (20:10)
[2018-12-23] MEDS: MIDAZOLAM (DRIP) 50 mg/50 mL 50 ML IV SCH (21:18)
[2018-12-23] MEDS ORDERED: ALBUTEROL 0.083% (NEB) 2.5 MG/3 ML AMP HHN PRN (23:00)
[2018-12-24] VITALS (93 sets, daily range): BP systolic 53–176; BP diastolic 37–93; PULSE 47–85; RESP 20–30
[2018-12-24] MEDS: ACCU-CHEK XX SCH ×24 (00:01→23:00)
[2018-12-24] MEDS: OCULAR LUBRICANT 3.5 GM OPH OINT BOTH EYES SCH ×4 (01:02→19:40)
[2018-12-24] MEDS: ARTIFICIAL TEARS 15 ML OPH BOTH EYES SCH ×4 (01:02→19:39)
[2018-12-24] MEDS: PROPOFOL 100 ML IV SCH ×5 (01:10→20:05)
[2018-12-24] MEDS: POTASSIUM CHLORIDE 50 ML IVPB PRN ×2 (01:38→03:05)
[2018-12-24] MEDS ORDERED: ACCU-CHEK XX SCH (02:00)
[2018-12-24] MEDS: NITROGLYCERIN 50 MG/D5W (PMX) 250 ML IV SCH ×2 (02:29→07:10)
[2018-12-24] MEDS ORDERED: hydrALAzine 20 MG INJ IV ONE (06:11)
[2018-12-24] MEDS: ACETAMINOPHEN 325 MG TAB NGT SCH ×4 (06:14→21:32)
[2018-12-24] MEDS: PIPER-TAZO 3.375 GM IV (PMX) 100 ML IVPB SCH ×3 (06:14→21:31)
[2018-12-24] MEDS: BUSPIRONE 5 MG TAB NGT SCH ×3 (06:14→21:31)
[2018-12-24] MEDS: PANTOPRAZOLE 40 MG INJ IV SCH (06:40)
[2018-12-24] MEDS ORDERED: niCARdipine-NS 0.1MG/ML DRIP 200 ML IV SCH (07:00)
[2018-12-24] MEDS: SOD CHLORIDE 0.9% 1,000 ML IV SCH ×2 (07:21→20:06)
--- NOTE | 2018-12-24 07:59 | NUR ---
EOSS: Pt. remained in the maintenance phase of the TTM protocol. Pt. is set to start the rewarming process at 1145 today. Pt. remains intubated/sedated with FENTANYL @ 25mcg and PROPOFOL @ 50mcg. Initially was working on titrating Propofol down and using Versed instead however, pt. was still not getting their tidal volumes via vent as well as pts. BP started elevating. Pt. started getting his volumes and BP was WNL until early this morning when it started climbing again. Dr. Palmer was the hospitalist cushion maker overnight and was called and notified about the BP and that I was at max on Nitro @ 200mg and Propofol @ 50mcg. Per Dr. Palmer 10mg Hydralazine IV x1 was ordered, and then Cardene drip per Dr. Palmer was ordered due to little to no effect with hydralazine. ~06/0645 was administering eye medication and noticed a change in pupils, I re-assessed pts pupils and found Right eye to be 3mm and sluggish (previous 2mm sluggish) and the Left eye is now at 5mm and fixed (previous 2mm). Day shift RN- Shayan was shown change, he agreed and was notifying doctors. TOF @ 0/4 on last check. Blood sugars seem to have stabilized as only titrated insulin drip x1. Potassium came back @ 3.3 @ 0000 labs, per KCl protocol replaced with 2 bags of 10mEqs (20mEqs total over 2 hours). Current drips: Propofol @ 50mcg/ Fentanyl @ 25mcg/ Nitro @ 200mg/ Cardene @ 5mg/ Insulin 3U (algo 3), NS @ 100cc Current Vent settings: AC/28/550/60/8 -able to titrate FiO2 down from 80% to 60%, pt. saturating well with no desaturations All information has been endorsed to Shayan- day shift RN. Daughter ROSALIND at bedside and updated on current status, all questions answered.
[2018-12-24] MEDS: NORepinephrine 8MG/250 ML (PMX 250 ML IV SCH ×2 (09:07→20:08)
[2018-12-24] MEDS: THIAMINE 200 MG INJ IM SCH (09:10)
[2018-12-24] MEDS ORDERED: SOD CHLORIDE 0.9% 1,000 ML IV ONE (09:30)
--- NOTE | 2018-12-24 09:30 | NUR ---
PT HAD EPISODE OF LOW BP WHEN CARDENE WAS STARTED SHORTLY BEFORE. PT WAS MAXED ON NITRO DRIP (200MCG) + PROPOFOL 50MCG + CARDENE 5MG FOR HIGH BP >170S. CARDENE AND NITRO TURNED OFF, PROPOFOL DECREASED. DR SANTANA AND DR VILLA INFORMED. LEVO DRIP STARTED AND 1L NS BOLUS GIVEN. LEVO CURRENTLY AT 18MC AND SBP >110.
--- NOTE | 2018-12-24 09:54 | CONS ---
Consult Date/Type/Reason Admit Date/Time Dec 23, 2018 at 05:39 Initial Consult Date Type of Consult Pulmonary Requesting Provider: ELADIA MEDRANO Date/Time of Note DATE: 12/24/18 TIME: 09:52 Subjective Continues hypothermia protocol. Remains somnolent. Change in pupil size noted with decreased blood pressure requiring initiation of vasopressor support. Objective Vital Signs Date Temp Pulse Resp B/P (MAP) Pulse Ox O2 O2 Flow FiO2 Time Delivery Rate 12/24/18 77 25 165/70 100 07:30 (101) 12/24/18 91.3 07:01 12/24/18 60 05:49 12/23/18 Mechanical 06:30 Ventilator Intake and Output 12/23/18 12/23/18 12/24/18 1515:00 23:00 07:00 IntakeIntake Total 917.501 ml 2109.453 ml 1753.070 ml OutputOutput Total 431 ml 292 ml 497 ml BalanceBalance 486.501 ml 1817.453 ml 1256.070 ml Exam PHYSICAL EXAMINATION: GENERAL: Morbidly obese gentleman, orally intubated on mechanical ventilation, currently on hypothermia protocol. VITAL SIGNS: NECK: Supple. No JVD or lymphadenopathy. CARDIAC: S1, S2, no added sounds or murmurs. CHEST: Diminished air entry bilaterally. ABDOMEN: Soft, nontender. No guarding or rebound. EXTREMITIES: No cyanosis, clubbing, 1+ edema. NEUROLOGIC: Generalized weakness, unable to assess. Vent Setting Ventilator Support Mode: AC Fraction of Inspired Oxygen pe: 60 Positive End Expiratory Pressu: 8.0 Results/Medications Result Diagram: 12/24/18 0630 12/24/18 0630 Results 24 hrs Laboratory Tests Test 12/23/18 10:23 12/23/18 11:39 12/23/18 11:48 12/23/18 13:10 Blood Gas Blood arterial Specimen Source Arterial Blood 12/23/2018 10:35 Date Drawn :39 AM Arterial Blood 7.225 *L pH (Temp corrected ) Arterial Blood 44.8 pCO2 (Temp correct) Arterial Blood 55.0 L pO2 (Temp corrected ) Arterial Blood 18.6 L HCO3 Arterial Blood -9.7 L Base Excess Arterial Blood 88.2 L Oxygen Saturati on Jack Test ACCEPTAB Arterial Blood Left Radial Gas Puncture Site Arterial 1.0 Blood Carboxyhe moglobin Arterial Blood 0.3 Methemoglobin Blood Gas A-a 618.4 H O2 Differential Oxyhemoglobin 87.1 L Percent Blood Gas 34.9 Temperature Blood Gas 20.0 Respiration Rate Blood Gas 20 Actual Respiration Rat e Blood Gas VENT - AC Modality FiO2 100.0 Blood Gas Tidal 500.0 Volume Blood Gas Low 5.0 PEEP Setting Blood Gas RLIM RN Critical Value Read Back Blood Gas TM Notified Whom Blood Gas 12/23/2018 10:43 Notified Time :24 AM Bedside Glucose 204 221 H Troponin I 2.510 *H Test 12/23/18 14:11 12/23/18 15:09 12/23/18 16:14 12/23/18 17:00 Bedside Glucose 192 172 172 Blood Gas Blood Specimen arterial Source Arterial Blood 12/23/2018 4:13 Date Drawn :44 PM Arterial Blood 7.311 L pH (Temp corrected ) Arterial Blood 35.5 pCO2 (Temp correct) Arterial Blood 100.7 H pO2 (Temp corrected ) Arterial Blood 18.2 L HCO3 Arterial Blood -8.3 L Base Excess Arterial Blood 97.9 Oxygen Saturati on Jack Test ACCEPTAB Arterial Blood Left Radial Gas Puncture Site Arterial 0.3 Blood Carboxyhe moglobin Arterial Blood 0.5 Methemoglobin Blood Gas A-a 584.7 H O2 Differential Oxyhemoglobin 97.1 Percent Blood Gas 33.7 Temperature Blood Gas 24.0 Respiration Rate Blood Gas 24 Actual Respiration Rat e Blood Gas VENT - AC Modality FiO2 100.0 Blood Gas Tidal 550.0 Volume Blood Gas Low 8.0 PEEP Setting Blood Gas LORENA SILVERMAN Critical Value Read Back Blood Gas KEVIN RT Notified Whom Blood Gas 12/23/2018 4:29 Notified Time :04 PM Test 12/23/18 17:07 12/23/18 18:01 12/23/18 18:02 12/23/18 19:06 Bedside Glucose 157 136 135 White Blood 14.8 H Count Red Blood Count 6.00 Hemoglobin 16.7 Hematocrit 51.6 Mean 86.0 Corpuscular Volume Mean 27.8 L Corpuscular Hemoglobin Mean 32.4 Corpuscular Hemoglobin Conc ent Red Cell 13.4 Distribution Width Platelet Count 149 Mean Platelet 9.5 Volume Immature 0.700 H Granulocytes % Neutrophils % 90.8 H Lymphocytes % 3.5 L Monocytes % 4.6 Eosinophils % 0.1 Basophils % 0.3 Nucleated Red 0.0 Blood Cells % Immature 0.110 H Granulocytes # Neutrophils # 13.4 H Lymphocytes # 0.5 L Monocytes # 0.7 Eosinophils # 0.0 Basophils # 0.0 Nucleated Red 0.0 Blood Cells # Sodium Level 140 Potassium Level 3.6 Chloride Level 107 Carbon Dioxide 21 Level Anion Gap 12 Blood Urea 23 H Nitrogen Creatinine 1.59 H Est Glomerular 44 L Filtrat Rate mL/min Glucose Level 142 # Lactic Acid 3.3 *H Level Calcium Level 8.6 Phosphorus 4.1 # Level Magnesium Level 2.2 Troponin I 3.440 *H Test 12/23/18 20:16 12/23/18 20:21 12/23/18 21:00 12/23/18 21:54 Bedside Glucose 97 120 130 Prothrombin 16.7 H Time Prothrombin 1.3 Time Ratio INR 1.34 International Normalized Rati o Activated 31.0 Partial Thrombo plast Time Test 12/23/18 23:02 12/23/18 23:57 12/24/18 00:54 12/24/18 00:59 Bedside Glucose 128 131 127 White Blood 12.2 H Count Red Blood Count 5.59 Hemoglobin 15.6 Hematocrit 47.4 Mean 84.8 Corpuscular Volume Mean 27.9 L Corpuscular Hemoglobin Mean 32.9 Corpuscular Hemoglobin Conc ent Red Cell 13.3 Distribution Width Platelet Count 142 Mean Platelet 9.8 Volume Immature 0.900 H Granulocytes % Neutrophils % 89.7 H Lymphocytes % 4.4 L Monocytes % 4.8 Eosinophils % 0.0 Basophils % 0.2 Nucleated Red 0.0 Blood Cells % Immature 0.110 H Granulocytes # Neutrophils # 10.9 H Lymphocytes # 0.5 L Monocytes # 0.6 Eosinophils # 0.0 Basophils # 0.0 Nucleated Red 0.0 Blood Cells # Sodium Level 140 Potassium Level 3.3 L Chloride Level 110 Carbon Dioxide 19 L Level Anion Gap 11 Blood Urea 29 H Nitrogen Creatinine 1.63 H Est Glomerular 43 L Filtrat Rate mL/min Glucose Level 135 Lactic Acid 3.4 *H Level Calcium Level 8.3 L Phosphorus 3.2 Level Magnesium Level 2.1 Troponin I 2.510 *H Test 12/24/18 01:55 12/24/18 02:56 12/24/18 03:00 12/24/18 03:56 Bedside Glucose 127 126 127 Urine Opiates Negative Screen Urine Negative Barbiturates Urine Negative Amphetamines Screen Urine Positive Benzodiazepines Screen Urine Cocaine Negative Screen Urine Negative Cannabinoids Test 12/24/18 04:54 12/24/18 05:00 12/24/18 05:55 12/24/18 06:30 Bedside Glucose 131 129 Blood Gas Blood arterial Specimen Source Arterial Blood 12/24/2018 4:47: Date Drawn 48 AM Arterial Blood 7.377 pH (Temp corrected ) Arterial Blood 30.0 L pCO2 (Temp correct) Arterial Blood 80.7 pO2 (Temp corrected ) Arterial Blood 17.2 L HCO3 Arterial Blood -6.4 L Base Excess Arterial Blood 95.6 Oxygen Saturati on Jack Test N/A Arterial Blood Right Radial Gas Puncture Site Arterial 0.3 Blood Carboxyhe moglobin Arterial Blood 0.3 Methemoglobin Blood Gas A-a 314.1 H O2 Differential Oxyhemoglobin 95.0 Percent Blood Gas 37.0 Temperature Blood Gas 28.0 Respiration Rate Blood Gas 28 Actual Respiration Rat e Blood Gas VENT - AC Modality FiO2 60.0 Blood Gas Tidal 550.0 Volume Blood Gas Low 8.0 PEEP Setting Blood Gas 32.0 Inspiratory Pressure Blood Gas S.H. Notified Whom Blood Gas 12/24/2018 4:59: Notified Time 16 AM White Blood 12.1 H Count Red Blood Count 5.61 Hemoglobin 15.4 Hematocrit 46.5 Mean 82.9 Corpuscular Volume Mean 27.5 L Corpuscular Hemoglobin Mean 33.1 Corpuscular Hemoglobin Conc ent Red Cell 13.4 Distribution Width Platelet Count 128 L Mean Platelet 10.0 Volume Immature 0.300 Granulocytes % Neutrophils % 88.7 H Lymphocytes % 5.5 L Monocytes % 5.3 Eosinophils % 0.1 Basophils % 0.1 Nucleated Red 0.0 Blood Cells % Immature 0.040 H Granulocytes # Neutrophils # 10.7 H Lymphocytes # 0.7 L Monocytes # 0.6 Eosinophils # 0.0 Basophils # 0.0 Nucleated Red 0.0 Blood Cells # Sodium Level 138 Potassium Level 3.3 L Chloride Level 109 Carbon Dioxide 18 L Level Anion Gap 11 Blood Urea 29 H Nitrogen Creatinine 1.56 H Est Glomerular 45 L Filtrat Rate mL/min Glucose Level 141 Hemoglobin A1c 5.5 Lactic Acid 2.1 *H Level Calcium Level 7.9 L Phosphorus 3.1 Level Magnesium Level 1.9 Total Bilirubin 0.7 Direct 0.00 Bilirubin Indirect 0.7 Bilirubin Aspartate Amino 203 #H Transf (AST/SGO T) Alanine 56 Aminotransferas e (ALT/SGPT) Alkaline 64 Phosphatase Troponin I 1.690 *H Total Protein 5.8 L Albumin 3.1 L Globulin 2.70 Albumin/Globuli 1.14 n Ratio Vitamin B12 515 Level Folate 2.7 L Free Thyroxine 1.31 Total 0.39 L Triiodothyronin e Test 12/24/18 06:49 12/24/18 08:15 12/24/18 09:27 Bedside Glucose 133 152 171 Medications Current Medications Sodium Chloride 1,000 ml @ 100 mls/hr Q10H IV Last administered on 12/24/18at 07:21; Admin Dose 100 MLS/HR; Start 12/23/18 at 05:44 IV Flush (NS 3 ml) 3 ml PER PROTOCOL IV ; Start 12/23/18 at 06:00 Ondansetron HCl (Zofran Inj) 4 mg Q6H PRN IV NAUSEA/VOMITING; Start 12/23/18 at 06:00 Pantoprazole (Protonix Iv) 40 mg DAILY@06 IV Last administered on 12/24/18at 06:40; Admin Dose 40 MG; Start 12/23/18 at 06:00 Diagnostic Test (Pha) (Accu-Chek) 1 ea 02 XX Last administered on 12/24/18at 01:57; Admin Dose 1 EA; Start 12/24/18 at 02:00 Insulin Aspart (Novolog Insulin Pen) NOVOLOG *MILD* ALGORITHM Q4 SC ; Start 12/23/18 at 09:00; Status Hold Miscellaneous Information 1 ea NOTE XX ; Start 12/23/18 at 06:30 Glucose (Glutose) 15 gm Q15M PRN PO DECREASED GLUCOSE; Start 12/23/18 at 06:30 Glucose (Glutose) 22.5 gm Q15M PRN PO DECREASED GLUCOSE; Start 12/23/18 at 06:30 Dextrose (D50w Syringe) 25 ml Q15M PRN IV DECREASED GLUCOSE; Start 12/23/18 at 06:30 Dextrose (D50w Syringe) 50 ml Q15M PRN IV DECREASED GLUCOSE; Start 12/23/18 at 06:30 Glucagon (Glucagen) 1 mg Q15M PRN IM DECREASED GLUCOSE; Start 12/23/18 at 06:30 Glucose (Glutose) 15 gm Q15M PRN BUCCAL DECREASED GLUCOSE; Start 12/23/18 at 06:30 Fentanyl 100 ml @ 2.5 mls/hr TITRATE IV Last administered on 12/23/18 11:55; Admin Dose 2.5 MLS/HR; Start 12/23/18 at 10:00 Diagnostic Test (Pha) (Accu-Chek) 1 ea Q1H XX Last administered on 12/24/18 09:31; Admin Dose 1 EA; Start 12/23/18 at 10:00 Insulin Human Regular 100 unit/ Sodium Chloride 100 ml @ 0 mls/hr PER PROTOCOL IV Last administered on 12/23/18 11:42; Admin Dose 2 MLS/HR; Start 12/23/18 at 10:00 Miscellaneous Information (* Miscellaneous Pharmacy Order) Treatment of Hypoglycemia: 1.BG 51... Per protocol XX ; Start 12/23/18 at 10:00 Dextrose (D50w Syringe) 25 ml Q15M PRN IV .DECREASED GLUCOSE; Start 12/23/18 at 10:00 Dextrose (D50w Syringe) 50 ml Q15M PRN IV .DECREASED GLUCOSE; Start 12/23/18 at 10:00 Vecuronium [place] 100 mg/ Dextrose 100 ml @ 6.82 mls/hr TITRATE IV Last administered on 12/24/18 04:12; Admin Dose 0.05 MLS/HR; Start 12/23/18 at 10:30 Propofol 100 ml @ 4.091 mls/ hr Q12H IV Last administered on 12/24/18 06:40; Admin Dose 40.908 MLS/HR; Start 12/23/18 at 11:00 Piperacillin Sod/ Tazobactam Sod 100 ml @ 200 mls/hr Q8 IVPB Last administered on 12/24/18 06:14; Admin Dose 200 MLS/HR; Start 12/23/18 at 14:00 Eye Lubricant (Akwa Oint) 1 applic Q6H BOTH EYES Last administered on 12/24/18 06:44; Admin Dose 1 APPLIC; Start 12/23/18 at 13:00 Nitroglycerin/ Dextrose 250 ml @ 1.5 mls/hr TITRATE IV Last administered on 12/24/18 07:10; Admin Dose 60 MLS/HR; Start 12/23/18 at 13:00 Buspirone HCl (Buspar) 30 mg Q8 NGT Last administered on 12/24/18 06:14; Admin Dose 30 MG; Start 12/23/18 at 14:00 Acetaminophen (Tylenol Tab) 650 mg Q8 NGT Last administered on 12/24/18 06:14; Admin Dose 650 MG; Start 12/23/18 at 14:00 Eye Lubricant (Artificial Tears Oph) 2 drop Q6H BOTH EYES Last administered on 12/24/18 06:43; Admin Dose 2 DROP; Start 12/23/18 at 19:00 Potassium Chloride 50 ml @ 50 mls/hr K PROTOCOL PRN IVPB PENDING LAB VALUE Last administered on 12/24/18 03:05; Admin Dose 50 MLS/HR; Start 12/23/18 at 15:30 Magnesium Sulfate 50 ml @ 25 mls/hr PRN PRN IVPB MAG <2 Last administered on 12/24/18 09:08; Admin Dose 25 MLS/HR; Start 12/23/18 at 16:00 Midazolam HCl 50 ml @ 1 mls/hr TITRATE IV Last administered on 12/23/18 21:18; Admin Dose 1 MLS/HR; Start 12/23/18 at 16:30 Thiamine HCl (Vitamin B1) 100 mg DAILY IM Last administered on 12/24/18 09:10; Admin Dose 100 MG; Start 12/23/18 at 19:30 Albuterol (Proventil 0.083% (Neb)) 1.25 mg Q2H RESP THERAPY PRN HHN WHEEZING AND SOB; Start 12/23/18 at 23:00 Nicardipine HCl 200 ml @ 50 mls/hr TITRATE IV Last administered on 12/24/18 07:14; Admin Dose 50 MLS/HR; Start 12/24/18 at 07:00 Norepinephrine 250 ml @ 1.875 mls/ hr TITRATE IV Last administered on 12/24/18 09:07; Admin Dose 9.375 MLS/HR; Start 12/24/18 at 09:00 Sodium Chloride 1,000 ml @ 1,000 mls/hr Q1H ONCE IV Last administered on 12/24/18 09:45; Admin Dose 1,000 MLS/HR; Start 12/24/18 at 09:30; Stop 12/24/18 at 10:29 Assessment/Plan Hospital Course (Demo Recall) IMPRESSION AND PLAN: 1. Cardiopulmonary arrest with no identified target lesions identified on cardiac catheterization. 2. History of coronary artery disease. 3. History of diabetes mellitus. 4. Possible aspiration pneumonia. 5. Probable significant anoxic brain injury given CT findings Plan 1. Continued hypothermia protocol 2. metabolic acidosis. 3. Serial blood gases and Chem-7. 4. Obtain prior cardiac history. 5. Neurology evaluation if no significant improvement in the next 48 to 72 hours. 6. Deep vein thrombosis and gastrointestinal prophylaxis. 7. Antibiotics for likely aspiration pneumonia. Discussed with family. Currently unable to establish neurological status given that he is sedated on hypothermia protocol. Will likely require CT brain and EEG once off hypothermia protocol. Critical care time 40 minutes. ALFONSO SANTANA MD, [facility] Dec 24, 2018 09:54
--- NOTE | 2018-12-24 10:42 | CONS ---
Assessment/Plan Assessment/Plan Hospital Course (Demo Recall) Cardiac arrest with ROSC: Though diffuse ischemia by EKG, the coronary findings on cardiac catheterization do not support cardiac etiology. Left main iFR was negative and the RCA does not explain the arrest. Acute respiratory failure: intubated due to arrest CAD s/p prior PCI: The RCA was not intervened upon as it was unlikely the culprit of the cardiac arrest. If the pt survives the hospitalization and mentation improves, will then proceed with PCI. History of hypertension: currently hypotensive requiring pressor support DM HTN ?reason for Xarelto as outpatient Plan: -hypothermia protocol -pressor support, wean as tolerated -follow up transthoracic echocardiogram Consultation Date/Type/Reason Admit Date/Time Dec 23, 2018 at 05:39 Initial Consult Date Type of Consult Cardiology Date/Time of Note DATE: 12/24/18 TIME: 10:41 24 HR Interval Summary Free Text/Dictation On hypothermia protocol. Currently on Levophed drip to support blood pressure. Detailed Summary Additional Comments Unable to obtain review of systems secondary to mental status. Exam/Review of Systems Vital Signs Vitals Vital Signs Date Temp Pulse Resp B/P (MAP) Pulse Ox O2 O2 Flow FiO2 Time Delivery Rate 12/24/18 72 28 94/53 (67) 100 09:30 12/24/18 80.2 09:00 12/24/18 60 05:49 12/23/18 Mechanical 06:30 Ventilator Intake and Output 12/23/18 12/23/18 12/24/18 1515:00 23:00 07:00 IntakeIntake Total 917.501 ml 2109.453 ml 1753.070 ml OutputOutput Total 431 ml 292 ml 497 ml BalanceBalance 486.501 ml 1817.453 ml 1256.070 ml Exam Exam Constitutional: No alert Head: normocephalic, atraumatic ENMT: intubated Neck: supple, jvd (9cm) Respiratory: diminished breath sounds; No clear to auscultation Cardiovascular: regular rate and rhythm, systolic murmur (2/6 DMITRI); No edema Gastrointestinal: soft; No distended Neurological: No nl mental status, No nl speech Labs Result Diagram: 12/24/18 0630 12/24/18 0630 Results 24hrs Laboratory Tests Test 12/23/18 11:39 12/23/18 11:48 12/23/18 13:10 12/23/18 14:11 Bedside Glucose 204 221 H 192 Troponin I 2.510 *H Test 12/23/18 15:09 12/23/18 16:14 12/23/18 17:00 12/23/18 17:07 Bedside Glucose 172 172 157 Blood Gas Blood arterial Specimen Source Arterial Blood 12/23/2018 4:13: Date Drawn 44 PM Arterial Blood 7.311 L pH (Temp corrected) Arterial Blood 35.5 pCO2 (Temp correct) Arterial Blood 100.7 H pO2 (Temp corrected) Arterial Blood 18.2 L HCO3 Arterial Blood -8.3 L Base Excess Arterial Blood 97.9 Oxygen Saturatio n Jack Test ACCEPTAB Arterial Blood Left Radial Gas Puncture Site Arterial 0.3 Blood Carboxyhem oglobin Arterial Blood 0.5 Methemoglobin Blood Gas A-a O2 584.7 H Differential Oxyhemoglobin 97.1 Percent Blood Gas 33.7 Temperature Blood Gas 24.0 Respiration Rate Blood Gas Actual 24 Respiration Rate Blood Gas VENT - AC Modality FiO2 100.0 Blood Gas Tidal 550.0 Volume Blood Gas Low 8.0 PEEP Setting Blood Gas LORENA SILVERMAN Critical Value Read Back Blood Gas KEVIN RT Notified Whom Blood Gas 12/23/2018 4:29: Notified Time 04 PM Test 12/23/18 18:01 12/23/18 18:02 12/23/18 19:06 12/23/18 20:16 Bedside Glucose 136 135 97 White Blood 14.8 H Count Red Blood Count 6.00 Hemoglobin 16.7 Hematocrit 51.6 Mean Corpuscular 86.0 Volume Mean Corpuscular 27.8 L Hemoglobin Mean Corpuscular 32.4 Hemoglobin Anca nt Red Cell 13.4 Distribution Width Platelet Count 149 Mean Platelet 9.5 Volume Immature 0.700 H Granulocytes % Neutrophils % 90.8 H Lymphocytes % 3.5 L Monocytes % 4.6 Eosinophils % 0.1 Basophils % 0.3 Nucleated Red 0.0 Blood Cells % Immature 0.110 H Granulocytes # Neutrophils # 13.4 H Lymphocytes # 0.5 L Monocytes # 0.7 Eosinophils # 0.0 Basophils # 0.0 Nucleated Red 0.0 Blood Cells # Sodium Level 140 Potassium Level 3.6 Chloride Level 107 Carbon Dioxide 21 Level Anion Gap 12 Blood Urea 23 H Nitrogen Creatinine 1.59 H Est Glomerular 44 L Filtrat Rate mL/min Glucose Level 142 # Lactic Acid 3.3 *H Level Calcium Level 8.6 Phosphorus Level 4.1 # Magnesium Level 2.2 Troponin I 3.440 *H Test 12/23/18 20:21 12/23/18 21:00 12/23/18 21:54 12/23/18 23:02 Prothrombin Time 16.7 H Prothrombin Time 1.3 Ratio INR 1.34 International Normalized Ratio Activated 31.0 Partial Thrombop last Time Bedside Glucose 120 130 128 Test 12/23/18 23:57 12/24/18 00:54 12/24/18 00:59 12/24/18 01:55 Bedside Glucose 131 127 127 White Blood 12.2 H Count Red Blood Count 5.59 Hemoglobin 15.6 Hematocrit 47.4 Mean Corpuscular 84.8 Volume Mean Corpuscular 27.9 L Hemoglobin Mean Corpuscular 32.9 Hemoglobin Anca nt Red Cell 13.3 Distribution Width Platelet Count 142 Mean Platelet 9.8 Volume Immature 0.900 H Granulocytes % Neutrophils % 89.7 H Lymphocytes % 4.4 L Monocytes % 4.8 Eosinophils % 0.0 Basophils % 0.2 Nucleated Red 0.0 Blood Cells % Immature 0.110 H Granulocytes # Neutrophils # 10.9 H Lymphocytes # 0.5 L Monocytes # 0.6 Eosinophils # 0.0 Basophils # 0.0 Nucleated Red 0.0 Blood Cells # Sodium Level 140 Potassium Level 3.3 L Chloride Level 110 Carbon Dioxide 19 L Level Anion Gap 11 Blood Urea 29 H Nitrogen Creatinine 1.63 H Est Glomerular 43 L Filtrat Rate mL/min Glucose Level 135 Lactic Acid 3.4 *H Level Calcium Level 8.3 L Phosphorus Level 3.2 Magnesium Level 2.1 Troponin I 2.510 *H Test 12/24/18 02:56 12/24/18 03:00 12/24/18 03:56 12/24/18 04:54 Bedside Glucose 126 127 131 Urine Opiates Negative Screen Urine Negative Barbiturates Urine Negative Amphetamines Screen Urine Positive Benzodiazepines Screen Urine Cocaine Negative Screen Urine Negative Cannabinoids Test 12/24/18 05:00 12/24/18 05:55 12/24/18 06:30 12/24/18 06:49 Blood Gas Blood arterial Specimen Source Arterial Blood 12/24/2018 4:47: Date Drawn 48 AM Arterial Blood 7.377 pH (Temp corrected) Arterial Blood 30.0 L pCO2 (Temp correct) Arterial Blood 80.7 pO2 (Temp corrected) Arterial Blood 17.2 L HCO3 Arterial Blood -6.4 L Base Excess Arterial Blood 95.6 Oxygen Saturatio n Jack Test N/A Arterial Blood Right Radial Gas Puncture Site Arterial 0.3 Blood Carboxyhem oglobin Arterial Blood 0.3 Methemoglobin Blood Gas A-a O2 314.1 H Differential Oxyhemoglobin 95.0 Percent Blood Gas 37.0 Temperature Blood Gas 28.0 Respiration Rate Blood Gas Actual 28 Respiration Rate Blood Gas VENT - AC Modality FiO2 60.0 Blood Gas Tidal 550.0 Volume Blood Gas Low 8.0 PEEP Setting Blood Gas 32.0 Inspiratory Pressure Blood Gas S.H. Notified Whom Blood Gas 12/24/2018 4:59: Notified Time 16 AM Bedside Glucose 129 133 White Blood 12.1 H Count Red Blood Count 5.61 Hemoglobin 15.4 Hematocrit 46.5 Mean Corpuscular 82.9 Volume Mean Corpuscular 27.5 L Hemoglobin Mean Corpuscular 33.1 Hemoglobin Anca nt Red Cell 13.4 Distribution Width Platelet Count 128 L Mean Platelet 10.0 Volume Immature 0.300 Granulocytes % Neutrophils % 88.7 H Lymphocytes % 5.5 L Monocytes % 5.3 Eosinophils % 0.1 Basophils % 0.1 Nucleated Red 0.0 Blood Cells % Immature 0.040 H Granulocytes # Neutrophils # 10.7 H Lymphocytes # 0.7 L Monocytes # 0.6 Eosinophils # 0.0 Basophils # 0.0 Nucleated Red 0.0 Blood Cells # Sodium Level 138 Potassium Level 3.3 L Chloride Level 109 Carbon Dioxide 18 L Level Anion Gap 11 Blood Urea 29 H Nitrogen Creatinine 1.56 H Est Glomerular 45 L Filtrat Rate mL/min Glucose Level 141 Hemoglobin A1c 5.5 Lactic Acid 2.1 *H Level Calcium Level 7.9 L Phosphorus Level 3.1 Magnesium Level 1.9 Total Bilirubin 0.7 Direct Bilirubin 0.00 Indirect 0.7 Bilirubin Aspartate Amino 203 #H Transf (AST/SGOT ) Alanine 56 Aminotransferase (ALT/SGPT) Alkaline 64 Phosphatase Troponin I 1.690 *H Total Protein 5.8 L Albumin 3.1 L Globulin 2.70 Albumin/Globulin 1.14 Ratio Vitamin B12 515 Level Folate 2.7 L Free Thyroxine 1.31 Total 0.39 L Triiodothyronine Test 12/24/18 08:15 12/24/18 09:27 12/24/18 10:31 Bedside Glucose 152 171 149 Medications Medications Current Medications Sodium Chloride 1,000 ml @ 100 mls/hr Q10H IV Last administered on 12/24/18at 07:21; Admin Dose 100 MLS/HR; Start 12/23/18 at 05:44 IV Flush (NS 3 ml) 3 ml PER PROTOCOL IV ; Start 12/23/18 at 06:00 Ondansetron HCl (Zofran Inj) 4 mg Q6H PRN IV NAUSEA/VOMITING; Start 12/23/18 at 06:00 Pantoprazole (Protonix Iv) 40 mg DAILY@06 IV Last administered on 12/24/18at 06:40; Admin Dose 40 MG; Start 12/23/18 at 06:00 Diagnostic Test (Pha) (Accu-Chek) 1 ea 02 XX Last administered on 12/24/18at 01:57; Admin Dose 1 EA; Start 12/24/18 at 02:00 Insulin Aspart (Novolog Insulin Pen) NOVOLOG *MILD* ALGORITHM Q4 SC ; Start 12/23/18 at 09:00; Status Hold Miscellaneous Information 1 ea NOTE XX ; Start 12/23/18 at 06:30 Glucose (Glutose) 15 gm Q15M PRN PO DECREASED GLUCOSE; Start 12/23/18 at 06:30 Glucose (Glutose) 22.5 gm Q15M PRN PO DECREASED GLUCOSE; Start 12/23/18 at 06:30 Dextrose (D50w Syringe) 25 ml Q15M PRN IV DECREASED GLUCOSE; Start 12/23/18 at 06:30 Dextrose (D50w Syringe) 50 ml Q15M PRN IV DECREASED GLUCOSE; Start 12/23/18 at 06:30 Glucagon (Glucagen) 1 mg Q15M PRN IM DECREASED GLUCOSE; Start 12/23/18 at 06:30 Glucose (Glutose) 15 gm Q15M PRN BUCCAL DECREASED GLUCOSE; Start 12/23/18 at 06:30 Fentanyl 100 ml @ 2.5 mls/hr TITRATE IV Last administered on 12/23/18at 11:55; Admin Dose 2.5 MLS/HR; Start 12/23/18 at 10:00 Diagnostic Test (Pha) (Accu-Chek) 1 ea Q1H XX Last administered on 12/24/18 10:31; Admin Dose 1 EA; Start 12/23/18 at 10:00 Insulin Human Regular 100 unit/ Sodium Chloride 100 ml @ 0 mls/hr PER PROTOCOL IV Last administered on 12/23/18 11:42; Admin Dose 2 MLS/HR; Start 12/23/18 at 10:00 Miscellaneous Information (* Miscellaneous Pharmacy Order) Treatment of Hypoglycemia: 1.BG 51... Per protocol XX ; Start 12/23/18 at 10:00 Dextrose (D50w Syringe) 25 ml Q15M PRN IV .DECREASED GLUCOSE; Start 12/23/18 at 10:00 Dextrose (D50w Syringe) 50 ml Q15M PRN IV .DECREASED GLUCOSE; Start 12/23/18 at 10:00 Vecuronium [place] 100 mg/ Dextrose 100 ml @ 6.82 mls/hr TITRATE IV Last administered on 12/24/18 04:12; Admin Dose 0.05 MLS/HR; Start 12/23/18 at 10:30 Propofol 100 ml @ 4.091 mls/ hr Q12H IV Last administered on 12/24/18 06:40; Admin Dose 40.908 MLS/HR; Start 12/23/18 at 11:00 Piperacillin Sod/ Tazobactam Sod 100 ml @ 200 mls/hr Q8 IVPB Last administered on 12/24/18 06:14; Admin Dose 200 MLS/HR; Start 12/23/18 at 14:00 Eye Lubricant (Akwa Oint) 1 applic Q6H BOTH EYES Last administered on 12/24/18 06:44; Admin Dose 1 APPLIC; Start 12/23/18 at 13:00 Nitroglycerin/ Dextrose 250 ml @ 1.5 mls/hr TITRATE IV Last administered on 12/24/18 07:10; Admin Dose 60 MLS/HR; Start 12/23/18 at 13:00 Buspirone HCl (Buspar) 30 mg Q8 NGT Last administered on 12/24/18 06:14; Admin Dose 30 MG; Start 12/23/18 at 14:00 Acetaminophen (Tylenol Tab) 650 mg Q8 NGT Last administered on 12/24/18 06:14; Admin Dose 650 MG; Start 12/23/18 at 14:00 Eye Lubricant (Artificial Tears Oph) 2 drop Q6H BOTH EYES Last administered on 12/24/18 06:43; Admin Dose 2 DROP; Start 12/23/18 at 19:00 Potassium Chloride 50 ml @ 50 mls/hr K PROTOCOL PRN IVPB PENDING LAB VALUE Last administered on 12/24/18 03:05; Admin Dose 50 MLS/HR; Start 12/23/18 at 15:30 Magnesium Sulfate 50 ml @ 25 mls/hr PRN PRN IVPB MAG <2 Last administered on 12/24/18 09:08; Admin Dose 25 MLS/HR; Start 12/23/18 at 16:00 Midazolam HCl 50 ml @ 1 mls/hr TITRATE IV Last administered on 12/23/18 21:18; Admin Dose 1 MLS/HR; Start 12/23/18 at 16:30 Thiamine HCl (Vitamin B1) 100 mg DAILY IM Last administered on 12/24/18 09:10; Admin Dose 100 MG; Start 12/23/18 at 19:30 Albuterol (Proventil 0.083% (Neb)) 1.25 mg Q2H RESP THERAPY PRN HHN WHEEZING AND SOB; Start 12/23/18 at 23:00 Nicardipine HCl 200 ml @ 50 mls/hr TITRATE IV Last administered on 12/24/18 07:14; Admin Dose 50 MLS/HR; Start 12/24/18 at 07:00 Norepinephrine 250 ml @ 1.875 mls/ hr TITRATE IV Last administered on 12/24/18 09:07; Admin Dose 9.375 MLS/HR; Start 12/24/18 at 09:00 MAMI MCCLOUD MD Dec 24, 2018 10:42
--- NOTE | 2018-12-24 11:47 | NUR ---
MAINTENANCE PHASE COMPLETE. REWARMING STARTED.
[2018-12-24] MEDS ORDERED: SOD CHLORIDE 0.9% 500 ML IV ONE ×2 (15:30→16:30)
[2018-12-24] MEDS: FENTAnyl (DRIP) 1000 mcg/100mL 100 ML IV SCH (17:33)
--- NOTE | 2018-12-24 18:45 | NUR ---
END OF SHIFT NOTE. PT REMAINS INTUBATED AND SEDATED. PUPILS THIS MORNING R EYE +3 SLUGGISH, LEFT EYE +5 FIXED. LATER IN THE DAY TAMIR EYES, EQUAL, +5 BOTH, AND FIXED, MDS AWARE. REWARMING STARTED TODAY @ 1147. PROPOFOL DOWN TO 10MC, VERSED STARTED TODAY @ 2MG/HR. BEGINNING OF SHIFT, PT'S BP>170, MAXED ON NITRO AND CARDENE STARTED. SBP LATER IN THE 50-60S, CARDENE AND NITRO TURNED OFF. PT CURRENTLY ON LEVO 11MC, SBP>100. HR SR 60-70S. PT W/ FC, VERY LOW TO NO U/O, MDS AWARE. 1500ML TOTAL NS BOLUS GIVEN TODAY. PT STILL ON NS @ 100ML/HR FOR IVF. VEC DRIP HAS BEEN ON AND OFF PER PROTOCOL/TOF, CURRENTLY OFF, TOF 0/4. PT ALSO ON INSULIN DRIP, B/G 90-110S, DOWN TO ALGO I. FENTANYL DRIP @ 25MCG. 2GM MAG GIVEN TODAY FOR MAG 1.9. VAP Q2, PT TURNED Q2H. NO SKIN BREAKDOWNS. PT HAD 1 LARGE BM, SOFT/WATERY, BROWN/BLACK.
--- NOTE | 2018-12-24 19:00 | NUR ---
RECEIVED REPORT FROM NURSE MACIEL . DR. VILLA ON THE BEDSIDE. MADE HIM AWARE TJHAT THE PATIENT URINE OUTPUT IS TOO LOW TO NILL. HE SAID HE WILL CONSULT RENAL DR. LUCERO AND HE WILL FOLLOW UP ON THIS ISSUE. BY THE TIME HE ORDERED TO GIVE NS 500M L BOLUS AND KEEP MONITORING. Addendum: 12/25/18 at 0048 by PRIMITIVO ISLAS RN [id number] PATIENT OUTPUT STILL LOW TO NILL EVEN AFTER BOLUS FLUIDS EARLIER IN THE SHIFT. INFORMED DR. JEFFERS AND HE SAID DR. LUCERO ALREADY INFORMED ABOUT THIS AND HE WILL FOLLOW UP. BY THE TIME I DID BLADDER SCANNER TO SEE IF HE IS HOLDING URINE AND SCANNER SHOWS >900 ML. SO TRIED TO IRRIGATE THE CRITICORE AND HAVING RESISTANCE BACK. SO PULLED THE CRITICORE OUT AND INSERTED AND NEW ONE AND PATIENT DRAINED 974 ML RIGHT AWAY. INFORMED DR. JEFFERS ABOUT THIS AND HE SAID KEEP MONITORING. Addendum: 12/25/18 at 0252 by PRIMITIVO ISLAS RN [address] JEFFERS THE LATEST ABG RESULTS AND TOLD HIM ABOUT THE BICARB OF 12 . NO INTERVENTION FOR NOW. 0245 . Patient troponin trending up from 1.240 at 6 pm to 1.340 at [address] degroot and dr. South was track service person AND EXPLAINED ABOUT THE PATIENT CONDITION AND TROPONINN LEVELS. HE SAID NO INTERVENTION FOR NOW AND SAID KEEP MONITORING Addendum: 12/25/18 at 0619 by PRIMITIVO ISLAS RN EOSR PATIENT STILL INTUBATED AND ALL THE SEDATION STARTED TITRATING SINCE PATIENT REACHED NORMOTHERMIA AND ALL THE SEDATIONS ARE ON HOLD TO SEE HOW THE PATIENT RESPONDING. PATIENT NEURO STILL THE SAME, NO COUGH , NO GAG, PUPILS BILATERAL 5 MM FIXED. STILL ON LEVOPHED TO KEEP SBP>90 SINCE WE CHANGED THE CRITICORE PATIENT MAKING GOOD URINE OUTPUT. NO SKIN ISSUES NOTIFIED. CAT SCAN OF BRAIN STILL PENDING. WILL CONTINUE MONITORING AND ENDORSE TO THE MORNING NURSE
[2018-12-24] MEDS ORDERED: SOD CHLORIDE 0.9% 500 ML IV PRN (19:30)
[2018-12-24] MEDS: MIDAZOLAM (DRIP) 50 mg/50 mL 50 ML IV SCH (19:39)
[2018-12-24] MEDS: INSULIN HUMAN REGULAR 100 UNIT in SOD CHLORIDE 0.9% 99 ML IV SCH (19:46)
--- NOTE | 2018-12-24 23:27 | PN ---
Date/Time of Note Date/Time of Note DATE: 12/24/18 TIME: 23:23 Assessment/Plan VTE Prophylaxis Risk score (from Nsg)>0 risk: 11 SCD applied (from Ns): Yes SCD contraindicated: low risk/ambulating Pharmacological prophylaxis: LMWH Lines/Catheters IV Catheter Type (from Nrsg): Central Line Central line still needed: Yes Urinary Cath still in place: Yes Reason Cath still needed: terminal illness/intractable pain Assessment/Plan Hospital Course A/P 1 Out Of Hospital Arrest w rosc; sp cpr; cont rewarming measures 2 CAD? cath fairly unremarkable for acute process 3 Htn 4 Tobacco 5 Oliguria/ Atn 6 Chr anticoagulate use? 7 Anoxic Injury/ Encephalopathy? mri/ ct when stable. 8 Ftt S: 12/23 on cooling measures. updated family; no recent events apparently. has relatives that work here. 12/24 no arrhythmias/ seizures. now on 60% fio2. pupils dilated today O: sr PE no pallor/ c bruits/ droop; ett c/d/i reg s1s2 no mrg ctab/ mechanical; lt tlc c/d/i bs dimin; nt nd; no rrg no edema/ Homans; dry lwr ext Neuro: nonfocal/ sedated Result Diagram: 12/24/18 1811 12/24/18 1811 Results 24hrs Laboratory Tests Test 12/23/18 23:57 12/24/18 00:54 12/24/18 00:59 12/24/18 01:55 Bedside Glucose 131 127 127 White Blood 12.2 H Count Red Blood Count 5.59 Hemoglobin 15.6 Hematocrit 47.4 Mean 84.8 Corpuscular Volume Mean 27.9 L Corpuscular Hemoglobin Mean 32.9 Corpuscular Hemoglobin Conc ent Red Cell 13.3 Distribution Width Platelet Count 142 Mean Platelet 9.8 Volume Immature 0.900 H Granulocytes % Neutrophils % 89.7 H Lymphocytes % 4.4 L Monocytes % 4.8 Eosinophils % 0.0 Basophils % 0.2 Nucleated Red 0.0 Blood Cells % Immature 0.110 H Granulocytes # Neutrophils # 10.9 H Lymphocytes # 0.5 L Monocytes # 0.6 Eosinophils # 0.0 Basophils # 0.0 Nucleated Red 0.0 Blood Cells # Sodium Level 140 Potassium Level 3.3 L Chloride Level 110 Carbon Dioxide 19 L Level Anion Gap 11 Blood Urea 29 H Nitrogen Creatinine 1.63 H Est Glomerular 43 L Filtrat Rate mL/min Glucose Level 135 Lactic Acid 3.4 *H Level Calcium Level 8.3 L Phosphorus 3.2 Level Magnesium Level 2.1 Troponin I 2.510 *H Test 12/24/18 02:56 12/24/18 03:00 12/24/18 03:56 12/24/18 04:54 Bedside Glucose 126 127 131 Urine Opiates Negative Screen Urine Negative Barbiturates Urine Negative Amphetamines Screen Urine Positive Benzodiazepines Screen Urine Cocaine Negative Screen Urine Negative Cannabinoids Test 12/24/18 05:00 12/24/18 05:30 12/24/18 05:55 12/24/18 06:30 Blood Gas Blood arterial Blood arterial Specimen Source Arterial Blood 12/24/2018 4:47: 12/24/2018 6:00: Date Drawn 48 AM 00 PM Arterial Blood 7.377 7.431 pH (Temp corrected ) Arterial Blood 30.0 L 25.1 L pCO2 (Temp correct) Arterial Blood 80.7 74.0 L pO2 (Temp corrected ) Arterial Blood 17.2 L 16.7 L HCO3 Arterial Blood -6.4 L -6.6 L Base Excess Arterial Blood 95.6 96.3 Oxygen Saturati on Jack Test N/A ACCEPTAB Arterial Blood Right Radial Left Radial Gas Puncture Site Arterial 0.3 0.8 Blood Carboxyhe moglobin Arterial Blood 0.3 0.4 Methemoglobin Blood Gas A-a 314.1 H 330.1 H O2 Differential Oxyhemoglobin 95.0 95.1 Percent Blood Gas 37.0 34.4 Temperature Blood Gas 28.0 28.0 Respiration Rate Blood Gas 28 28 Actual Respiration Rat e Blood Gas VENT - AC VENT - AC Modality FiO2 60.0 60.0 Blood Gas Tidal 550.0 550.0 Volume Blood Gas Low 8.0 8.0 PEEP Setting Blood Gas 32.0 Inspiratory Pressure Blood Gas S.H. DT Notified Whom Blood Gas 12/24/2018 4:59: 12/24/2018 6:23: Notified Time 16 AM 00 PM Bedside Glucose 129 White Blood 12.1 H Count Red Blood Count 5.61 Hemoglobin 15.4 Hematocrit 46.5 Mean 82.9 Corpuscular Volume Mean 27.5 L Corpuscular Hemoglobin Mean 33.1 Corpuscular Hemoglobin Conc ent Red Cell 13.4 Distribution Width Platelet Count 128 L Mean Platelet 10.0 Volume Immature 0.300 Granulocytes % Neutrophils % 88.7 H Lymphocytes % 5.5 L Monocytes % 5.3 Eosinophils % 0.1 Basophils % 0.1 Nucleated Red 0.0 Blood Cells % Immature 0.040 H Granulocytes # Neutrophils # 10.7 H Lymphocytes # 0.7 L Monocytes # 0.6 Eosinophils # 0.0 Basophils # 0.0 Nucleated Red 0.0 Blood Cells # Sodium Level 138 Potassium Level 3.3 L Chloride Level 109 Carbon Dioxide 18 L Level Anion Gap 11 Blood Urea 29 H Nitrogen Creatinine 1.56 H Est Glomerular 45 L Filtrat Rate mL/min Glucose Level 141 Hemoglobin A1c 5.5 Lactic Acid 2.1 *H Level Calcium Level 7.9 L Phosphorus 3.1 Level Magnesium Level 1.9 Total Bilirubin 0.7 Direct 0.00 Bilirubin Indirect 0.7 Bilirubin Aspartate Amino 203 #H Transf (AST/SGO T) Alanine 56 Aminotransferas e (ALT/SGPT) Alkaline 64 Phosphatase Troponin I 1.690 *H Total Protein 5.8 L Albumin 3.1 L Globulin 2.70 Albumin/Globuli 1.14 n Ratio Vitamin B12 515 Level Folate 2.7 L Free Thyroxine 1.31 Total 0.39 L Triiodothyronin e Test 12/24/18 06:49 12/24/18 08:15 12/24/18 09:27 12/24/18 10:31 Bedside Glucose 133 152 171 149 Test 12/24/18 11:00 12/24/18 11:17 12/24/18 11:56 12/24/18 11:57 Blood Gas Blood arterial Specimen Source Arterial Blood 12/24/2018 11:15 Date Drawn :00 AM Arterial Blood 7.426 pH (Temp corrected ) Arterial Blood 25.5 L pCO2 (Temp correct) Arterial Blood 83.3 pO2 (Temp corrected ) Arterial Blood 17.2 L HCO3 Arterial Blood -6.8 L Base Excess Arterial Blood 97.4 Oxygen Saturati on Jack Test ACCEPTAB Arterial Blood Right Radial Gas Puncture Site Arterial 0.6 Blood Carboxyhe moglobin Arterial Blood 0.3 Methemoglobin Blood Gas A-a 322.3 H O2 Differential Oxyhemoglobin 96.5 Percent Blood Gas 32.8 Temperature Blood Gas 28.0 Respiration Rate Blood Gas 28 Actual Respiration Rat e Blood Gas VENT - AC Modality FiO2 60.0 Blood Gas Tidal 550.0 Volume Blood Gas Low 8.0 PEEP Setting Blood Gas DT Notified Whom Blood Gas 12/24/2018 11:27 Notified Time :00 AM Bedside Glucose 153 133 White Blood 12.3 H Count Red Blood Count 5.35 Hemoglobin 14.8 Hematocrit 44.4 Mean 83.0 Corpuscular Volume Mean 27.7 L Corpuscular Hemoglobin Mean 33.3 Corpuscular Hemoglobin Conc ent Red Cell 13.3 Distribution Width Platelet Count 135 L Mean Platelet 9.9 Volume Immature 0.700 H Granulocytes % Neutrophils % 86.5 H Lymphocytes % 6.2 L Monocytes % 6.2 Eosinophils % 0.1 Basophils % 0.3 Nucleated Red 0.0 Blood Cells % Immature 0.090 H Granulocytes # Neutrophils # 10.6 H Lymphocytes # 0.8 Monocytes # 0.8 Eosinophils # 0.0 Basophils # 0.0 Nucleated Red 0.0 Blood Cells # Sodium Level 139 Potassium Level 3.2 L Chloride Level 112 H Carbon Dioxide 17 L Level Anion Gap 10 Blood Urea 29 H Nitrogen Creatinine 1.56 H Est Glomerular 45 L Filtrat Rate mL/min Glucose Level 148 Lactic Acid 1.8 Level Calcium Level 7.7 L Phosphorus 2.8 Level Magnesium Level 2.7 H Troponin I 1.160 *H Test 12/24/18 13:06 12/24/18 14:21 12/24/18 16:14 12/24/18 17:03 Bedside Glucose 130 122 96 100 Test 12/24/18 17:30 12/24/18 18:06 12/24/18 18:11 12/24/18 18:49 Blood Gas Blood arterial Specimen Source Arterial Blood 12/24/2018 6:00: Date Drawn 00 PM Arterial Blood 7.431 pH (Temp corrected ) Arterial Blood 25.1 L pCO2 (Temp correct) Arterial Blood 74.0 L pO2 (Temp corrected ) Arterial Blood 16.7 L HCO3 Arterial Blood -6.6 L Base Excess Arterial Blood 96.3 Oxygen Saturati on Jack Test ACCEPTAB Arterial Blood Left Radial Gas Puncture Site Arterial 0.8 Blood Carboxyhe moglobin Arterial Blood 0.4 Methemoglobin Blood Gas A-a 330.1 H O2 Differential Oxyhemoglobin 95.1 Percent Blood Gas 34.4 Temperature Blood Gas 28.0 Respiration Rate Blood Gas 28 Actual Respiration Rat e Blood Gas VENT - AC Modality FiO2 60.0 Blood Gas Tidal 550.0 Volume Blood Gas Low 8.0 PEEP Setting Blood Gas DT Notified Whom Blood Gas 12/24/2018 6:23: Notified Time 00 PM Bedside Glucose 96 108 White Blood 9.5 # Count Red Blood Count 5.11 Hemoglobin 13.9 L Hematocrit 42.1 Mean 82.4 Corpuscular Volume Mean 27.2 L Corpuscular Hemoglobin Mean 33.0 Corpuscular Hemoglobin Conc ent Red Cell 13.6 Distribution Width Platelet Count 135 L Mean Platelet 10.3 Volume Immature 0.500 H Granulocytes % Neutrophils % 83.5 H Lymphocytes % 10.8 L Monocytes % 4.9 Eosinophils % 0.2 Basophils % 0.1 Nucleated Red 0.0 Blood Cells % Immature 0.050 H Granulocytes # Neutrophils # 7.9 H Lymphocytes # 1.0 Monocytes # 0.5 Eosinophils # 0.0 Basophils # 0.0 Nucleated Red 0.0 Blood Cells # Sodium Level 139 Potassium Level 3.3 L Chloride Level 113 H Carbon Dioxide 17 L Level Anion Gap 9 Blood Urea 31 H Nitrogen Creatinine 1.81 H Est Glomerular 38 L Filtrat Rate mL/min Glucose Level 102 # Lactic Acid 1.6 Level Calcium Level 7.4 L Phosphorus 2.7 Level Magnesium Level 2.4 Troponin I 1.240 *H Test 12/24/18 19:57 12/24/18 21:00 12/24/18 21:56 12/24/18 22:00 Bedside Glucose 106 104 105 Blood Gas Blood Specimen arterial Source Arterial Blood 12/24/2018 6:00 Date Drawn :00 PM Arterial Blood 7.431 pH (Temp corrected ) Arterial Blood 25.1 L pCO2 (Temp correct) Arterial Blood 74.0 L pO2 (Temp corrected ) Arterial Blood 16.7 L HCO3 Arterial Blood -6.6 L Base Excess Arterial Blood 96.3 Oxygen Saturati on Jack Test ACCEPTAB Arterial Blood Left Radial Gas Puncture Site Arterial 0.8 Blood Carboxyhe moglobin Arterial Blood 0.4 Methemoglobin Blood Gas A-a 330.1 H O2 Differential Oxyhemoglobin 95.1 Percent Blood Gas 34.4 Temperature Blood Gas 28.0 Respiration Rate Blood Gas 28 Actual Respiration Rat e Blood Gas VENT - AC Modality FiO2 60.0 Blood Gas Tidal 550.0 Volume Blood Gas Low 8.0 PEEP Setting Blood Gas DT Notified Whom Blood Gas 12/24/2018 6:23 Notified Time :00 PM Test 12/24/18 22:55 Bedside Glucose 106 Exam/Review of Systems Exam Vitals Vital Signs Date Temp Pulse Resp B/P (MAP) Pulse Ox O2 O2 Flow FiO2 Time Delivery Rate 12/24/18 96.0 22:19 12/24/18 69 28 106/48 99 22:00 (67) 12/24/18 60 20:00 12/23/18 Mechanical 06:30 Ventilator Intake and Output 12/23/18 12/23/18 12/24/18 1515:00 23:00 07:00 IntakeIntake Total 917.501 ml 2109.453 ml 1753.070 ml OutputOutput Total 431 ml 292 ml 497 ml BalanceBalance 486.501 ml 1817.453 ml 1256.070 ml Results Results 24hrs Laboratory Tests Test 12/23/18 23:57 12/24/18 00:54 12/24/18 00:59 12/24/18 01:55 Bedside Glucose 131 127 127 White Blood 12.2 H Count Red Blood Count 5.59 Hemoglobin 15.6 Hematocrit 47.4 Mean 84.8 Corpuscular Volume Mean 27.9 L Corpuscular Hemoglobin Mean 32.9 Corpuscular Hemoglobin Conc ent Red Cell 13.3 Distribution Width Platelet Count 142 Mean Platelet 9.8 Volume Immature 0.900 H Granulocytes % Neutrophils % 89.7 H Lymphocytes % 4.4 L Monocytes % 4.8 Eosinophils % 0.0 Basophils % 0.2 Nucleated Red 0.0 Blood Cells % Immature 0.110 H Granulocytes # Neutrophils # 10.9 H Lymphocytes # 0.5 L Monocytes # 0.6 Eosinophils # 0.0 Basophils # 0.0 Nucleated Red 0.0 Blood Cells # Sodium Level 140 Potassium Level 3.3 L Chloride Level 110 Carbon Dioxide 19 L Level Anion Gap 11 Blood Urea 29 H Nitrogen Creatinine 1.63 H Est Glomerular 43 L Filtrat Rate mL/min Glucose Level 135 Lactic Acid 3.4 *H Level Calcium Level 8.3 L Phosphorus 3.2 Level Magnesium Level 2.1 Troponin I 2.510 *H Test 12/24/18 02:56 12/24/18 03:00 12/24/18 03:56 12/24/18 04:54 Bedside Glucose 126 127 131 Urine Opiates Negative Screen Urine Negative Barbiturates Urine Negative Amphetamines Screen Urine Positive Benzodiazepines Screen Urine Cocaine Negative Screen Urine Negative Cannabinoids Test 12/24/18 05:00 12/24/18 05:30 12/24/18 05:55 12/24/18 06:30 Blood Gas Blood arterial Blood arterial Specimen Source Arterial Blood 12/24/2018 4:47: 12/24/2018 6:00: Date Drawn 48 AM 00 PM Arterial Blood 7.377 7.431 pH (Temp corrected ) Arterial Blood 30.0 L 25.1 L pCO2 (Temp correct) Arterial Blood 80.7 74.0 L pO2 (Temp corrected ) Arterial Blood 17.2 L 16.7 L HCO3 Arterial Blood -6.4 L -6.6 L Base Excess Arterial Blood 95.6 96.3 Oxygen Saturati on Jack Test N/A ACCEPTAB Arterial Blood Right Radial Left Radial Gas Puncture Site Arterial 0.3 0.8 Blood Carboxyhe moglobin Arterial Blood 0.3 0.4 Methemoglobin Blood Gas A-a 314.1 H 330.1 H O2 Differential Oxyhemoglobin 95.0 95.1 Percent Blood Gas 37.0 34.4 Temperature Blood Gas 28.0 28.0 Respiration Rate Blood Gas 28 28 Actual Respiration Rat e Blood Gas VENT - AC VENT - AC Modality FiO2 60.0 60.0 Blood Gas Tidal 550.0 550.0 Volume Blood Gas Low 8.0 8.0 PEEP Setting Blood Gas 32.0 Inspiratory Pressure Blood Gas S.H. DT Notified Whom Blood Gas 12/24/2018 4:59: 12/24/2018 6:23: Notified Time 16 AM 00 PM Bedside Glucose 129 White Blood 12.1 H Count Red Blood Count 5.61 Hemoglobin 15.4 Hematocrit 46.5 Mean 82.9 Corpuscular Volume Mean 27.5 L Corpuscular Hemoglobin Mean 33.1 Corpuscular Hemoglobin Conc ent Red Cell 13.4 Distribution Width Platelet Count 128 L Mean Platelet 10.0 Volume Immature 0.300 Granulocytes % Neutrophils % 88.7 H Lymphocytes % 5.5 L Monocytes % 5.3 Eosinophils % 0.1 Basophils % 0.1 Nucleated Red 0.0 Blood Cells % Immature 0.040 H Granulocytes # Neutrophils # 10.7 H Lymphocytes # 0.7 L Monocytes # 0.6 Eosinophils # 0.0 Basophils # 0.0 Nucleated Red 0.0 Blood Cells # Sodium Level 138 Potassium Level 3.3 L Chloride Level 109 Carbon Dioxide 18 L Level Anion Gap 11 Blood Urea 29 H Nitrogen Creatinine 1.56 H Est Glomerular 45 L Filtrat Rate mL/min Glucose Level 141 Hemoglobin A1c 5.5 Lactic Acid 2.1 *H Level Calcium Level 7.9 L Phosphorus 3.1 Level Magnesium Level 1.9 Total Bilirubin 0.7 Direct 0.00 Bilirubin Indirect 0.7 Bilirubin Aspartate Amino 203 #H Transf (AST/SGO T) Alanine 56 Aminotransferas e (ALT/SGPT) Alkaline 64 Phosphatase Troponin I 1.690 *H Total Protein 5.8 L Albumin 3.1 L Globulin 2.70 Albumin/Globuli 1.14 n Ratio Vitamin B12 515 Level Folate 2.7 L Free Thyroxine 1.31 Total 0.39 L Triiodothyronin e Test 12/24/18 06:49 12/24/18 08:15 12/24/18 09:27 12/24/18 10:31 Bedside Glucose 133 152 171 149 Test 12/24/18 11:00 12/24/18 11:17 12/24/18 11:56 12/24/18 11:57 Blood Gas Blood arterial Specimen Source Arterial Blood 12/24/2018 11:15 Date Drawn :00 AM Arterial Blood 7.426 pH (Temp corrected ) Arterial Blood 25.5 L pCO2 (Temp correct) Arterial Blood 83.3 pO2 (Temp corrected ) Arterial Blood 17.2 L HCO3 Arterial Blood -6.8 L Base Excess Arterial Blood 97.4 Oxygen Saturati on Jack Test ACCEPTAB Arterial Blood Right Radial Gas Puncture Site Arterial 0.6 Blood Carboxyhe moglobin Arterial Blood 0.3 Methemoglobin Blood Gas A-a 322.3 H O2 Differential Oxyhemoglobin 96.5 Percent Blood Gas 32.8 Temperature Blood Gas 28.0 Respiration Rate Blood Gas 28 Actual Respiration Rat e Blood Gas VENT - AC Modality FiO2 60.0 Blood Gas Tidal 550.0 Volume Blood Gas Low 8.0 PEEP Setting Blood Gas DT Notified Whom Blood Gas 12/24/2018 11:27 Notified Time :00 AM Bedside Glucose 153 133 White Blood 12.3 H Count Red Blood Count 5.35 Hemoglobin 14.8 Hematocrit 44.4 Mean 83.0 Corpuscular Volume Mean 27.7 L Corpuscular Hemoglobin Mean 33.3 Corpuscular Hemoglobin Conc ent Red Cell 13.3 Distribution Width Platelet Count 135 L Mean Platelet 9.9 Volume Immature 0.700 H Granulocytes % Neutrophils % 86.5 H Lymphocytes % 6.2 L Monocytes % 6.2 Eosinophils % 0.1 Basophils % 0.3 Nucleated Red 0.0 Blood Cells % Immature 0.090 H Granulocytes # Neutrophils # 10.6 H Lymphocytes # 0.8 Monocytes # 0.8 Eosinophils # 0.0 Basophils # 0.0 Nucleated Red 0.0 Blood Cells # Sodium Level 139 Potassium Level 3.2 L Chloride Level 112 H Carbon Dioxide 17 L Level Anion Gap 10 Blood Urea 29 H Nitrogen Creatinine 1.56 H Est Glomerular 45 L Filtrat Rate mL/min Glucose Level 148 Lactic Acid 1.8 Level Calcium Level 7.7 L Phosphorus 2.8 Level Magnesium Level 2.7 H Troponin I 1.160 *H Test 12/24/18 13:06 12/24/18 14:21 12/24/18 16:14 12/24/18 17:03 Bedside Glucose 130 122 96 100 Test 12/24/18 17:30 12/24/18 18:06 12/24/18 18:11 12/24/18 18:49 Blood Gas Blood arterial Specimen Source Arterial Blood 12/24/2018 6:00: Date Drawn 00 PM Arterial Blood 7.431 pH (Temp corrected ) Arterial Blood 25.1 L pCO2 (Temp correct) Arterial Blood 74.0 L pO2 (Temp corrected ) Arterial Blood 16.7 L HCO3 Arterial Blood -6.6 L Base Excess Arterial Blood 96.3 Oxygen Saturati on Jack Test ACCEPTAB Arterial Blood Left Radial Gas Puncture Site Arterial 0.8 Blood Carboxyhe moglobin Arterial Blood 0.4 Methemoglobin Blood Gas A-a 330.1 H O2 Differential Oxyhemoglobin 95.1 Percent Blood Gas 34.4 Temperature Blood Gas 28.0 Respiration Rate Blood Gas 28 Actual Respiration Rat e Blood Gas VENT - AC Modality FiO2 60.0 Blood Gas Tidal 550.0 Volume Blood Gas Low 8.0 PEEP Setting Blood Gas DT Notified Whom Blood Gas 12/24/2018 6:23: Notified Time 00 PM Bedside Glucose 96 108 White Blood 9.5 # Count Red Blood Count 5.11 Hemoglobin 13.9 L Hematocrit 42.1 Mean 82.4 Corpuscular Volume Mean 27.2 L Corpuscular Hemoglobin Mean 33.0 Corpuscular Hemoglobin Conc ent Red Cell 13.6 Distribution Width Platelet Count 135 L Mean Platelet 10.3 Volume Immature 0.500 H Granulocytes % Neutrophils % 83.5 H Lymphocytes % 10.8 L Monocytes % 4.9 Eosinophils % 0.2 Basophils % 0.1 Nucleated Red 0.0 Blood Cells % Immature 0.050 H Granulocytes # Neutrophils # 7.9 H Lymphocytes # 1.0 Monocytes # 0.5 Eosinophils # 0.0 Basophils # 0.0 Nucleated Red 0.0 Blood Cells # Sodium Level 139 Potassium Level 3.3 L Chloride Level 113 H Carbon Dioxide 17 L Level Anion Gap 9 Blood Urea 31 H Nitrogen Creatinine 1.81 H Est Glomerular 38 L Filtrat Rate mL/min Glucose Level 102 # Lactic Acid 1.6 Level Calcium Level 7.4 L Phosphorus 2.7 Level Magnesium Level 2.4 Troponin I 1.240 *H Test 12/24/18 19:57 12/24/18 21:00 12/24/18 21:56 12/24/18 22:00 Bedside Glucose 106 104 105 Blood Gas Blood Specimen arterial Source Arterial Blood 12/24/2018 6:00 Date Drawn :00 PM Arterial Blood 7.431 pH (Temp corrected ) Arterial Blood 25.1 L pCO2 (Temp correct) Arterial Blood 74.0 L pO2 (Temp corrected ) Arterial Blood 16.7 L HCO3 Arterial Blood -6.6 L Base Excess Arterial Blood 96.3 Oxygen Saturati on Jack Test ACCEPTAB Arterial Blood Left Radial Gas Puncture Site Arterial 0.8 Blood Carboxyhe moglobin Arterial Blood 0.4 Methemoglobin Blood Gas A-a 330.1 H O2 Differential Oxyhemoglobin 95.1 Percent Blood Gas 34.4 Temperature Blood Gas 28.0 Respiration Rate Blood Gas 28 Actual Respiration Rat e Blood Gas VENT - AC Modality FiO2 60.0 Blood Gas Tidal 550.0 Volume Blood Gas Low 8.0 PEEP Setting Blood Gas DT Notified Whom Blood Gas 12/24/2018 6:23 Notified Time :00 PM Test 12/24/18 22:55 Bedside Glucose 106 Medications Medication Current Medications Sodium Chloride 1,000 ml @ 100 mls/hr Q10H IV Last administered on 12/24/18at 20:06; Admin Dose 100 MLS/HR; Start 12/23/18 at 05:44 IV Flush (NS 3 ml) 3 ml PER PROTOCOL IV ; Start 12/23/18 at 06:00 Ondansetron HCl (Zofran Inj) 4 mg Q6H PRN IV NAUSEA/VOMITING; Start 12/23/18 at 06:00 Pantoprazole (Protonix Iv) 40 mg DAILY@06 IV Last administered on 12/24/18at 06:40; Admin Dose 40 MG; Start 12/23/18 at 06:00 Diagnostic Test (Pha) (Accu-Chek) 1 ea 02 XX Last administered on 12/24/18at 01:57; Admin Dose 1 EA; Start 12/24/18 at 02:00 Insulin Aspart (Novolog Insulin Pen) NOVOLOG *MILD* ALGORITHM Q4 SC ; Start 12/23/18 at 09:00; Status Hold Miscellaneous Information 1 ea NOTE XX ; Start 12/23/18 at 06:30 Glucose (Glutose) 15 gm Q15M PRN PO DECREASED GLUCOSE; Start 12/23/18 at 06:30 Glucose (Glutose) 22.5 gm Q15M PRN PO DECREASED GLUCOSE; Start 12/23/18 at 06:30 Dextrose (D50w Syringe) 25 ml Q15M PRN IV DECREASED GLUCOSE; Start 12/23/18 at 06:30 Dextrose (D50w Syringe) 50 ml Q15M PRN IV DECREASED GLUCOSE; Start 12/23/18 at 06:30 Glucagon (Glucagen) 1 mg Q15M PRN IM DECREASED GLUCOSE; Start 12/23/18 at 06:30 Glucose (Glutose) 15 gm Q15M PRN BUCCAL DECREASED GLUCOSE; Start 12/23/18 at 06:30 Fentanyl 100 ml @ 2.5 mls/hr TITRATE IV Last administered on 12/24/18at 17:33; Admin Dose 2.5 MLS/HR; Start 12/23/18 at 10:00 Diagnostic Test (Pha) (Accu-Chek) 1 ea Q1H XX Last administered on 12/24/18at 18:50; Admin Dose 1 EA; Start 12/23/18 at 10:00 Insulin Human Regular 100 unit/ Sodium Chloride 100 ml @ 0 mls/hr PER PROTOCOL IV Last administered on 12/24/18at 19:46; Admin Dose 0.2 MLS/HR; Start 12/23/18 at 10:00 Miscellaneous Information (* Miscellaneous Pharmacy Order) Treatment of Hypoglycemia: 1.BG 51... Per protocol XX ; Start 12/23/18 at 10:00 Dextrose (D50w Syringe) 25 ml Q15M PRN IV .DECREASED GLUCOSE; Start 12/23/18 at 10:00 Dextrose (D50w Syringe) 50 ml Q15M PRN IV .DECREASED GLUCOSE; Start 12/23/18 at 10:00 Vecuronium [place] 100 mg/ Dextrose 100 ml @ 6.82 mls/hr TITRATE IV Last administered on 12/24/18 04:12; Admin Dose 0.05 MLS/HR; Start 12/23/18 at 10:30 Propofol 100 ml @ 4.091 mls/ hr Q12H IV Last administered on 12/24/18 20:05; Admin Dose 8.182 MLS/HR; Start 12/23/18 at 11:00 Piperacillin Sod/ Tazobactam Sod 100 ml @ 200 mls/hr Q8 IVPB Last administered on 12/24/18 21:31; Admin Dose 200 MLS/HR; Start 12/23/18 at 14:00 Eye Lubricant (Akwa Oint) 1 applic Q6H BOTH EYES Last administered on 12/24/18 19:40; Admin Dose 1 APPLIC; Start 12/23/18 at 13:00 Nitroglycerin/ Dextrose 250 ml @ 1.5 mls/hr TITRATE IV Last administered on 12/24/18 07:10; Admin Dose 60 MLS/HR; Start 12/23/18 at 13:00 Buspirone HCl (Buspar) 30 mg Q8 NGT Last administered on 12/24/18 21:31; Admin Dose 30 MG; Start 12/23/18 at 14:00 Acetaminophen (Tylenol Tab) 650 mg Q8 NGT Last administered on 12/24/18 21:32; Admin Dose 650 MG; Start 12/23/18 at 14:00 Eye Lubricant (Artificial Tears Oph) 2 drop Q6H BOTH EYES Last administered on 12/24/18 19:39; Admin Dose 2 DROP; Start 12/23/18 at 19:00 Potassium Chloride 50 ml @ 50 mls/hr K PROTOCOL PRN IVPB PENDING LAB VALUE Last administered on 12/24/18 03:05; Admin Dose 50 MLS/HR; Start 12/23/18 at 15:30 Magnesium Sulfate 50 ml @ 25 mls/hr PRN PRN IVPB MAG <2 Last administered on 12/24/18 09:08; Admin Dose 25 MLS/HR; Start 12/23/18 at 16:00 Midazolam HCl 50 ml @ 1 mls/hr TITRATE IV Last administered on 12/24/18at 19:39; Admin Dose 2 MLS/HR; Start 12/23/18 at 16:30 Thiamine HCl (Vitamin B1) 100 mg DAILY IM Last administered on 12/24/18at 09:10; Admin Dose 100 MG; Start 12/23/18 at 19:30 Albuterol (Proventil 0.083% (Neb)) 1.25 mg Q2H RESP THERAPY PRN HHN WHEEZING AND SOB; Start 12/23/18 at 23:00 Nicardipine HCl 200 ml @ 50 mls/hr TITRATE IV Last administered on 12/24/18at 07:14; Admin Dose 50 MLS/HR; Start 12/24/18 at 07:00 Norepinephrine 250 ml @ 1.875 mls/ hr TITRATE IV Last administered on 12/24/18at 20:08; Admin Dose 18.75 MLS/HR; Start 12/24/18 at 09:00 Sodium Chloride 500 ml @ 0 mls/hr Q0M PRN IV UNABLE TO VOID; Start 12/24/18 at 19:30 KELL VILLA MD Dec 24, 2018 23:27
[2018-12-25] VITALS (95 sets, daily range): BP systolic 81–130; BP diastolic 43–60; PULSE 65–78; RESP 0–28
[2018-12-25] MEDS: ACCU-CHEK XX SCH ×12 (02:00→21:56)
[2018-12-25] MEDS: ARTIFICIAL TEARS 15 ML OPH BOTH EYES SCH ×4 (02:39→19:51)
[2018-12-25] MEDS: OCULAR LUBRICANT 3.5 GM OPH OINT BOTH EYES SCH ×4 (02:39→19:51)
[2018-12-25] MEDS: PANTOPRAZOLE 40 MG INJ IV SCH (05:29)
[2018-12-25] MEDS: SOD CHLORIDE 0.9% 1,000 ML IV SCH (05:29)
[2018-12-25] MEDS: PIPER-TAZO 3.375 GM IV (PMX) 100 ML IVPB SCH ×3 (05:29→21:46)
[2018-12-25] MEDS: BUSPIRONE 5 MG TAB NGT SCH ×3 (05:29→21:55)
[2018-12-25] MEDS: ACETAMINOPHEN 325 MG TAB NGT SCH ×3 (05:30→21:47)
[2018-12-25] MEDS ORDERED: POTASSIUM CHLORIDE 10 MEQ in SOD CHLORIDE 0.9% 1,000 ML IV SCH (07:30)
[2018-12-25] MEDS ORDERED: POTASSIUM PHOSPHATE 15 MM in SOD CHLORIDE 0.9% 250 ML IVPB ONE (07:30)
[2018-12-25] MEDS: THIAMINE 200 MG INJ IM SCH (09:00)
[2018-12-25] MEDS ORDERED: DEXTROSE 5%-0.45% NACL 1,000 ML IV SCH (09:30)
[2018-12-25] MEDS: POTASSIUM CHLORIDE 50 ML IVPB SCH ×2 (10:04→10:39)
--- NOTE | 2018-12-25 10:04 | QN ---
Documentation Comment pt seen and examined MARGARETTE FREEMAN MD Dec 25, 2018 10:03
--- NOTE | 2018-12-25 11:01 | CONS ---
Consult Date/Type/Reason Admit Date/Time Dec 23, 2018 at 05:39 Initial Consult Date Type of Consult Pulmonary Date/Time of Note DATE: 12/25/18 TIME: 11:00 Subjective Patient remains somnolent on mechanical ventilation. Off sedation and paralysis pupils are fixed and dilated. No gag reflex either. Objective Vital Signs Date Temp Pulse Resp B/P (MAP) Pulse Ox O2 O2 Flow FiO2 Time Delivery Rate 12/25/18 70 28 96/43 (60) 100 10:45 12/25/18 98.6 Mechanical 08:00 Ventilator 12/25/18 55 05:30 Intake and Output 12/24/18 12/24/18 12/25/18 1515:00 23:00 07:00 IntakeIntake Total 2193.508 ml 1689.821 ml 1089.818 ml OutputOutput Total 65 ml 14 ml 2052 ml BalanceBalance 2128.508 ml 1675.821 ml -962.182 ml Exam PHYSICAL EXAMINATION: GENERAL: Morbidly obese gentleman, orally intubated on mechanical ventilation, VITAL SIGNS: NECK: Supple. No JVD or lymphadenopathy. Pupils fixed and dilated CARDIAC: S1, S2, no added sounds or murmurs. CHEST: Diminished air entry bilaterally. ABDOMEN: Soft, nontender. No guarding or rebound. EXTREMITIES: No cyanosis, clubbing, 1+ edema. NEUROLOGIC: Generalized weakness, unable to assess. Vent Setting Ventilator Support Mode: AC Fraction of Inspired Oxygen pe: 55 Positive End Expiratory Pressu: 8.0 Results/Medications Result Diagram: 12/25/18 0540 12/25/18 0540 Results 24 hrs Laboratory Tests Test 12/24/18 11:17 12/24/18 11:56 12/24/18 11:57 12/24/18 13:06 Bedside Glucose 153 133 130 White Blood 12.3 H Count Red Blood Count 5.35 Hemoglobin 14.8 Hematocrit 44.4 Mean 83.0 Corpuscular Volume Mean 27.7 L Corpuscular Hemoglobin Mean 33.3 Corpuscular Hemoglobin Conc ent Red Cell 13.3 Distribution Width Platelet Count 135 L Mean Platelet 9.9 Volume Immature 0.700 H Granulocytes % Neutrophils % 86.5 H Lymphocytes % 6.2 L Monocytes % 6.2 Eosinophils % 0.1 Basophils % 0.3 Nucleated Red 0.0 Blood Cells % Immature 0.090 H Granulocytes # Neutrophils # 10.6 H Lymphocytes # 0.8 Monocytes # 0.8 Eosinophils # 0.0 Basophils # 0.0 Nucleated Red 0.0 Blood Cells # Sodium Level 139 Potassium Level 3.2 L Chloride Level 112 H Carbon Dioxide 17 L Level Anion Gap 10 Blood Urea 29 H Nitrogen Creatinine 1.56 H Est Glomerular 45 L Filtrat Rate mL/min Glucose Level 148 Lactic Acid 1.8 Level Calcium Level 7.7 L Phosphorus 2.8 Level Magnesium Level 2.7 H Troponin I 1.160 *H Test 12/24/18 14:21 12/24/18 16:14 12/24/18 17:03 12/24/18 17:30 Bedside Glucose 122 96 100 Blood Gas Blood Specimen arterial Source Arterial Blood 12/24/2018 6:00 Date Drawn :00 PM Arterial Blood 7.431 pH (Temp corrected ) Arterial Blood 25.1 L pCO2 (Temp correct) Arterial Blood 74.0 L pO2 (Temp corrected ) Arterial Blood 16.7 L HCO3 Arterial Blood -6.6 L Base Excess Arterial Blood 96.3 Oxygen Saturati on Jack Test ACCEPTAB Arterial Blood Left Radial Gas Puncture Site Arterial 0.8 Blood Carboxyhe moglobin Arterial Blood 0.4 Methemoglobin Blood Gas A-a 330.1 H O2 Differential Oxyhemoglobin 95.1 Percent Blood Gas 34.4 Temperature Blood Gas 28.0 Respiration Rate Blood Gas 28 Actual Respiration Rat e Blood Gas VENT - AC Modality FiO2 60.0 Blood Gas Tidal 550.0 Volume Blood Gas Low 8.0 PEEP Setting Blood Gas DT Notified Whom Blood Gas 12/24/2018 6:23 Notified Time :00 PM Test 12/24/18 18:06 12/24/18 18:11 12/24/18 18:49 12/24/18 19:57 Bedside Glucose 96 108 106 White Blood 9.5 # Count Red Blood Count 5.11 Hemoglobin 13.9 L Hematocrit 42.1 Mean 82.4 Corpuscular Volume Mean 27.2 L Corpuscular Hemoglobin Mean 33.0 Corpuscular Hemoglobin Conc ent Red Cell 13.6 Distribution Width Platelet Count 135 L Mean Platelet 10.3 Volume Immature 0.500 H Granulocytes % Neutrophils % 83.5 H Lymphocytes % 10.8 L Monocytes % 4.9 Eosinophils % 0.2 Basophils % 0.1 Nucleated Red 0.0 Blood Cells % Immature 0.050 H Granulocytes # Neutrophils # 7.9 H Lymphocytes # 1.0 Monocytes # 0.5 Eosinophils # 0.0 Basophils # 0.0 Nucleated Red 0.0 Blood Cells # Sodium Level 139 Potassium Level 3.3 L Chloride Level 113 H Carbon Dioxide 17 L Level Anion Gap 9 Blood Urea 31 H Nitrogen Creatinine 1.81 H Est Glomerular 38 L Filtrat Rate mL/min Glucose Level 102 # Lactic Acid 1.6 Level Calcium Level 7.4 L Phosphorus 2.7 Level Magnesium Level 2.4 Troponin I 1.240 *H Test 12/24/18 21:00 12/24/18 21:56 12/24/18 22:00 12/24/18 22:55 Bedside Glucose 104 105 106 Blood Gas Blood arterial Specimen Source Arterial Blood 12/24/2018 6:00: Date Drawn 00 PM Arterial Blood 7.431 pH (Temp corrected ) Arterial Blood 25.1 L pCO2 (Temp correct) Arterial Blood 74.0 L pO2 (Temp corrected ) Arterial Blood 16.7 L HCO3 Arterial Blood -6.6 L Base Excess Arterial Blood 96.3 Oxygen Saturati on Jack Test ACCEPTAB Arterial Blood Left Radial Gas Puncture Site Arterial 0.8 Blood Carboxyhe moglobin Arterial Blood 0.4 Methemoglobin Blood Gas A-a 330.1 H O2 Differential Oxyhemoglobin 95.1 Percent Blood Gas 34.4 Temperature Blood Gas 28.0 Respiration Rate Blood Gas 28 Actual Respiration Rat e Blood Gas VENT - AC Modality FiO2 60.0 Blood Gas Tidal 550.0 Volume Blood Gas Low 8.0 PEEP Setting Blood Gas DT Notified Whom Blood Gas 12/24/2018 6:23: Notified Time 00 PM Test 12/24/18 23:00 12/24/18 23:57 12/25/18 00:22 12/25/18 00:30 Blood Gas Blood arterial Specimen Source Arterial Blood 12/24/2018 11:25 Date Drawn :24 PM Arterial Blood 7.378 pH (Temp corrected ) Arterial Blood 27.6 L pCO2 (Temp correct) Arterial Blood 69.7 L pO2 (Temp corrected ) Arterial Blood 16.1 L HCO3 Arterial Blood -7.8 L Base Excess Arterial Blood 94.4 L Oxygen Saturati on Jack Test ACCEPTAB Arterial Blood Right Radial Gas Puncture Site Arterial 0.4 Blood Carboxyhe moglobin Arterial Blood 0.2 Methemoglobin Blood Gas A-a 257.3 H O2 Differential Oxyhemoglobin 93.8 Percent Blood Gas 35.8 Temperature Blood Gas 28.0 Respiration Rate Blood Gas VENT - AC Modality FiO2 50.0 Blood Gas Tidal 550.0 Volume Blood Gas Low 8.0 PEEP Setting Blood Gas CMV Notified Whom Blood Gas 12/24/2018 11:33 Notified Time :04 PM Bedside Glucose 105 White Blood 8.3 Count Red Blood Count 4.81 Hemoglobin 13.4 L Hematocrit 39.9 L Mean 83.0 Corpuscular Volume Mean 27.9 L Corpuscular Hemoglobin Mean 33.6 Corpuscular Hemoglobin Conc ent Red Cell 13.7 Distribution Width Platelet Count 118 L Mean Platelet 10.3 Volume Immature 0.400 Granulocytes % Neutrophils % 83.9 H Lymphocytes % 10.3 L Monocytes % 4.6 Eosinophils % 0.7 Basophils % 0.1 Nucleated Red 0.0 Blood Cells % Immature 0.030 Granulocytes # Neutrophils # 6.9 Lymphocytes # 0.9 Monocytes # 0.4 Eosinophils # 0.1 Basophils # 0.0 Nucleated Red 0.0 Blood Cells # Sodium Level 138 Potassium Level 3.2 L Chloride Level 112 H Carbon Dioxide 17 L Level Anion Gap 9 Blood Urea 30 H Nitrogen Creatinine 2.30 H Est Glomerular 29 L Filtrat Rate mL/min Glucose Level 108 Lactic Acid 1.3 Level Calcium Level 7.3 L Phosphorus 2.6 Level Magnesium Level 2.2 Troponin I 1.340 *H Urine Random 37.58 Creatinine Urine Random 34 Sodium Test 12/25/18 02:21 12/25/18 04:30 12/25/18 05:00 12/25/18 05:40 Bedside Glucose 108 109 Blood Gas Blood arterial Specimen Source Arterial Blood 12/25/2018 4:46: Date Drawn 04 AM Arterial Blood 7.398 pH (Temp corrected ) Arterial Blood 26.5 L pCO2 (Temp correct) Arterial Blood 69.3 L pO2 (Temp corrected ) Arterial Blood 16.0 L HCO3 Arterial Blood -7.1 L Base Excess Arterial Blood 94.0 L Oxygen Saturati on Jack Test ACCEPTAB Arterial Blood Right Radial Gas Puncture Site Arterial 0.3 Blood Carboxyhe moglobin Arterial Blood 0.3 Methemoglobin Blood Gas A-a 257.4 H O2 Differential Oxyhemoglobin 93.4 Percent Blood Gas 37.0 Temperature Blood Gas 28.0 Respiration Rate Blood Gas 28 Actual Respiration Rat e Blood Gas VENT - AC Modality FiO2 50.0 Blood Gas Tidal 550.0 Volume Blood Gas Low 8.0 PEEP Setting Blood Gas 31.0 Inspiratory Pressure Blood Gas MM Notified Whom Blood Gas 12/25/2018 4:54: Notified Time 47 AM White Blood 7.7 Count Red Blood Count 4.79 Hemoglobin 13.3 L Hematocrit 39.7 L Mean 82.9 Corpuscular Volume Mean 27.8 L Corpuscular Hemoglobin Mean 33.5 Corpuscular Hemoglobin Conc ent Red Cell 13.7 Distribution Width Platelet Count 117 L Mean Platelet 10.5 H Volume Immature 0.700 H Granulocytes % Neutrophils % 83.3 H Lymphocytes % 10.7 L Monocytes % 4.2 Eosinophils % 0.8 Basophils % 0.3 Nucleated Red 0.0 Blood Cells % Immature 0.050 H Granulocytes # Neutrophils # 6.4 Lymphocytes # 0.8 Monocytes # 0.3 Eosinophils # 0.1 Basophils # 0.0 Nucleated Red 0.0 Blood Cells # Sodium Level 139 Potassium Level 3.0 L Chloride Level 115 H Carbon Dioxide 18 L Level Anion Gap 6 Blood Urea 30 H Nitrogen Creatinine 2.45 H Est Glomerular 27 L Filtrat Rate mL/min Glucose Level 117 Calcium Level 7.5 L Phosphorus 2.3 L Level Total Bilirubin 0.6 Direct 0.00 Bilirubin Indirect 0.6 Bilirubin Aspartate Amino 75 #H Transf (AST/SGO T) Alanine 46 Aminotransferas e (ALT/SGPT) Alkaline 53 Phosphatase Total Protein 5.0 L Albumin 2.6 L Globulin 2.40 Albumin/Globuli 1.08 n Ratio Test 12/25/18 06:00 12/25/18 06:07 12/25/18 07:52 12/25/18 10:25 Magnesium Level 2.2 Bedside Glucose 118 122 119 Medications Current Medications Sodium Chloride 1,000 ml @ 100 mls/hr Q10H IV Last administered on 12/25/18at 0 5:29; Admin Dose 100 MLS/HR; Start 12/23/18 at 05:44; Status Hold IV Flush (NS 3 ml) 3 ml PER PROTOCOL IV ; Start 12/23/18 at 06:00 Ondansetron HCl (Zofran Inj) 4 mg Q6H PRN IV NAUSEA/VOMITING; Start 12/23/18 at 06:00 Pantoprazole (Protonix Iv) 40 mg DAILY@06 IV Last administered on 12/25/18at 05: 29; Admin Dose 40 MG; Start 12/23/18 at 06:00 Insulin Aspart (Novolog Insulin Pen) NOVOLOG *MILD* ALGORITHM Q4 SC ; Start 12/23/18 at 09:00; Status Hold Miscellaneous Information 1 ea NOTE XX ; Start 12/23/18 at 06:30 Glucose (Glutose) 15 gm Q15M PRN PO DECREASED GLUCOSE; Start 12/23/18 at 06:30 Glucose (Glutose) 22.5 gm Q15M PRN PO DECREASED GLUCOSE; Start 12/23/18 at 06:30 Dextrose (D50w Syringe) 25 ml Q15M PRN IV DECREASED GLUCOSE; Start 12/23/18 at 06:30 Dextrose (D50w Syringe) 50 ml Q15M PRN IV DECREASED GLUCOSE; Start 12/23/18 at 06:30 Glucagon (Glucagen) 1 mg Q15M PRN IM DECREASED GLUCOSE; Start 12/23/18 at 06:30 Glucose (Glutose) 15 gm Q15M PRN BUCCAL DECREASED GLUCOSE; Start 12/23/18 at 06:30 Fentanyl 100 ml @ 2.5 mls/hr TITRATE IV Last administered on 12/24/18at 17:33; Admin Dose 2.5 MLS/HR; Start 12/23/18 at 10:00 Insulin Human Regular 100 unit/ Sodium Chloride 100 ml @ 0 mls/hr PER PROTOCOL IV Last administered on 12/24/18at 19:46; Admin Dose 0.2 MLS/HR; Start 12/23/18 at 10:00 Miscellaneous Information (* Miscellaneous Pharmacy Order) Treatment of Hypoglycemia: 1.BG 51... Per protocol XX ; Start 12/23/18 at 10:00 Dextrose (D50w Syringe) 25 ml Q15M PRN IV .DECREASED GLUCOSE; Start 12/23/18 at 10:00 Dextrose (D50w Syringe) 50 ml Q15M PRN IV .DECREASED GLUCOSE; Start 12/23/18 at 10:00 Vecuronium [place] 100 mg/ Dextrose 100 ml @ 6.82 mls/hr TITRATE IV Last administered on 12/24/18at 04:12; Admin Dose 0.05 MLS/HR; Start 12/23/18 at 10:30 Propofol 100 ml @ 4.091 mls/ hr Q12H IV Last administered on 2/14/19at 20:05; Admin Dose 8.182 MLS/HR; Start 12/23/18 at 11:00 Piperacillin Sod/ Tazobactam Sod 100 ml @ 200 mls/hr Q8 IVPB Last administered on 12/25/18 05:29; Admin Dose 200 MLS/HR; Start 12/23/18 at 14:00 Eye Lubricant ([place]wa Oint) 1 applic Q6H BOTH EYES Last administered on 12/25/18 07:51; Admin Dose 1 APPLIC; Start 12/23/18 at 13:00 Nitroglycerin/ Dextrose 250 ml @ 1.5 mls/hr TITRATE IV Last administered on 12/24/18 07:10; Admin Dose 60 MLS/HR; Start 12/23/18 at 13:00 Buspirone HCl (Buspar) 30 mg Q8 NGT Last administered on 12/25/18 05:29; Admin Dose 30 MG; Start 12/23/18 at 14:00 Acetaminophen (Tylenol Tab) 650 mg Q8 NGT Last administered on 12/25/18 05:30; Admin Dose 650 MG; Start 12/23/18 at 14:00 Eye Lubricant (Artificial Tears Oph) 2 drop Q6H BOTH EYES Last administered on 12/25/18 07:51; Admin Dose 2 DROP; Start 12/23/18 at 19:00 Potassium Chloride 50 ml @ 50 mls/hr K PROTOCOL PRN IVPB PENDING LAB VALUE Last administered on 12/24/18 03:05; Admin Dose 50 MLS/HR; Start 12/23/18 at 15:30 Magnesium Sulfate 50 ml @ 25 mls/hr PRN PRN IVPB MAG <2 Last administered on 12/24/18 09:08; Admin Dose 25 MLS/HR; Start 12/23/18 at 16:00 Midazolam HCl 50 ml @ 1 mls/hr TITRATE IV Last administered on 12/24/18 19:39; Admin Dose 2 MLS/HR; Start 12/23/18 at 16:30 Thiamine HCl (Vitamin B1) 100 mg DAILY IM Last administered on 12/24/18 09:10; Admin Dose 100 MG; Start 12/23/18 at 19:30 Albuterol (Proventil 0.083% (Neb)) 1.25 mg Q2H RESP THERAPY PRN HHN WHEEZING AND SOB; Start 12/23/18 at 23:00 Nicardipine HCl 200 ml @ 50 mls/hr TITRATE IV Last administered on 12/24/18at 07:14; Admin Dose 50 MLS/HR; Start 12/24/18 at 07:00 Norepinephrine 250 ml @ 1.875 mls/ hr TITRATE IV Last administered on 12/24/18at 20:08; Admin Dose 18.75 MLS/HR; Start 12/24/18 at 09:00 Sodium Chloride 500 ml @ 0 mls/hr Q0M PRN IV UNABLE TO VOID; Start 12/24/18 at 19:30 Diagnostic Test (Pha) (Accu-Chek) 1 ea Q2H XX ; Start 12/25/18 at 02:00 Potassium Phosphate 15 mm/ Sodium Chloride 255 ml @ 63.75 mls/ hr ONCE ONCE IVPB Last administered on 12/25/18at 10:38; Admin Dose 63.75 MLS/HR; Start 12/25/18 at 07:30; Stop 12/25/18 at 11:29 Potassium Chloride 50 ml @ 25 mls/hr Q2H IVPB Last administered on 12/25/18at 10:04; Admin Dose 25 MLS/HR; Start 12/25/18 at 09:30; Stop 12/25/18 at 13:29 Sodium Bicarbonate 100 meq/Dextrose/ Sodium Chloride 1,100 ml @ 50 mls/hr Q22H IV ; Start 12/25/18 at 10:00 Assessment/Plan Hospital Course (Demo Recall) IMPRESSION AND PLAN: 1. Cardiopulmonary arrest with no identified target lesions identified on cardiac catheterization. 2. History of coronary artery disease. 3. History of diabetes mellitus. 4. Possible aspiration pneumonia. Right lower lobe infiltrate 5. Probable significant anoxic brain injury given CT findings Plan 1. EEG, CT brain, neurology evaluation 2. metabolic acidosis. IV fluids with intravenous bicarbonate 3. Serial blood gases and Chem-7. 4. Start tube feeding Very poor prognosis continue current supportive care Critical care time 40 minutes. ALFONSO SANTANA MD, FCCP Dec 25, 2018 11:01
[2018-12-25] MEDS: SODIUM BICARBONATE (IV ADD) 100 MEQ in DEXTROSE 5%-0.45% NACL 1,000 ML IV SCH (11:48)
--- NOTE | 2018-12-25 11:59 | CONS ---
Assessment/Plan Assessment/Plan Hospital Course 68 yo M with multiple comorbidities who p/w coma following a cardiac arrest. The pt remains comatose s/p targeted temperature therapy... for which neurology is consulted. His clinical examination is notable for absent brainstem and cortical reflexes... concerning for brain . CTH is notable for loss of ortega/white matter differentiation, c/w a global ischemic event. P: Await repeat CTH Await EEG for confirmation Cont medical management per primary Will follow clinically Consultation Date/Type/Reason Admit Date/Time Dec 23, 2018 at 05:39 Type of Consult Neurology Reason for Consultation coma s/p cardiac arrest Requesting Provider: ALFONSO SANTANA MD, [facility] Date/Time of Note DATE: 12/25/18 TIME: 11:59 Hx of Present Illness 68 yo M with hx of DM, stent placement and other comorbidities who presented to the ED unresponsive s/p cardiac arrest with ROSC. History was obtained from chart review as pt is critically ill and therefore unable to contribute. It is elsewhere noted: Hx of Present Illness Patient is a 68-year-old gentleman currently intubated who suffered cardiac arrest x3 in the field and currently is not responsive to noxious stimuli. Patient past medical history is uncertain at this time, however according to emergency personnel, patient does have a history of diabetes and insomnia. Patient was found down by his friend or roommate and last known well time was 3 AM. 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 HPI is limited as there are no family members at bedside and story is only secondhand from emergency personnel. Patient is nonresponsive at this time, HPI is limited. Subjective hx not possible: pt non-verbal, pt critical status Exam/Review of Systems Exam Vitals Vital Signs Date Temp Pulse Resp B/P (MAP) Pulse Ox O2 O2 Flow FiO2 Time Delivery Rate 12/25/18 70 28 96/43 (60) 100 10:45 12/25/18 98.6 Mechanical 08:00 Ventilator 12/25/18 55 05:30 Intake and Output 12/24/18 12/24/18 12/25/18 1414:59 22:59 06:59 IntakeIntake Total 2284.234 ml 1690.751 ml 1104.070 ml OutputOutput Total 159 ml 10 ml 1662 ml BalanceBalance 2125.234 ml 1680.751 ml -557.930 ml Exam PE: Gen Appearance: No Apparent Distress HEENT: Intubated Cardiovascular: Regular rate Abdomen: Soft Extremities: Dry NE: The patient was comatose. Cranial nerve examination was limited by mental status. Pupils were fixed and unreactive to light. There was no afferent pupillary defect. Funduscopic examination was limited. Face was grossly symmetric, w/ absent corneal and cough reflexes. Tone was flaccid. Muscle bulk was normal. I did not see fasciculations. The patient did not withdraw to noxious stimulation. Results Result Diagram: 12/25/18 0540 12/25/18 0540 Results 24hrs Laboratory Tests Test 12/24/18 13:06 12/24/18 14:21 12/24/18 16:14 12/24/18 17:03 Bedside Glucose 130 122 96 100 Test 12/24/18 17:30 12/24/18 18:06 12/24/18 18:11 12/24/18 18:49 Blood Gas Blood arterial Specimen Source Arterial Blood 12/24/2018 6:00: Date Drawn 00 PM Arterial Blood 7.431 pH (Temp corrected ) Arterial Blood 25.1 L pCO2 (Temp correct) Arterial Blood 74.0 L pO2 (Temp corrected ) Arterial Blood 16.7 L HCO3 Arterial Blood -6.6 L Base Excess Arterial Blood 96.3 Oxygen Saturati on Jack Test ACCEPTAB Arterial Blood Left Radial Gas Puncture Site Arterial 0.8 Blood Carboxyhe moglobin Arterial Blood 0.4 Methemoglobin Blood Gas A-a 330.1 H O2 Differential Oxyhemoglobin 95.1 Percent Blood Gas 34.4 Temperature Blood Gas 28.0 Respiration Rate Blood Gas 28 Actual Respiration Rat e Blood Gas VENT - AC Modality FiO2 60.0 Blood Gas Tidal 550.0 Volume Blood Gas Low 8.0 PEEP Setting Blood Gas DT Notified Whom Blood Gas 12/24/2018 6:23: Notified Time 00 PM Bedside Glucose 96 108 White Blood 9.5 # Count Red Blood Count 5.11 Hemoglobin 13.9 L Hematocrit 42.1 Mean 82.4 Corpuscular Volume Mean 27.2 L Corpuscular Hemoglobin Mean 33.0 Corpuscular Hemoglobin Conc ent Red Cell 13.6 Distribution Width Platelet Count 135 L Mean Platelet 10.3 Volume Immature 0.500 H Granulocytes % Neutrophils % 83.5 H Lymphocytes % 10.8 L Monocytes % 4.9 Eosinophils % 0.2 Basophils % 0.1 Nucleated Red 0.0 Blood Cells % Immature 0.050 H Granulocytes # Neutrophils # 7.9 H Lymphocytes # 1.0 Monocytes # 0.5 Eosinophils # 0.0 Basophils # 0.0 Nucleated Red 0.0 Blood Cells # Sodium Level 139 Potassium Level 3.3 L Chloride Level 113 H Carbon Dioxide 17 L Level Anion Gap 9 Blood Urea 31 H Nitrogen Creatinine 1.81 H Est Glomerular 38 L Filtrat Rate mL/min Glucose Level 102 # Lactic Acid 1.6 Level Calcium Level 7.4 L Phosphorus 2.7 Level Magnesium Level 2.4 Troponin I 1.240 *H Test 12/24/18 19:57 12/24/18 21:00 12/24/18 21:56 12/24/18 22:00 Bedside Glucose 106 104 105 Blood Gas Blood Specimen arterial Source Arterial Blood 12/24/2018 6:00 Date Drawn :00 PM Arterial Blood 7.431 pH (Temp corrected ) Arterial Blood 25.1 L pCO2 (Temp correct) Arterial Blood 74.0 L pO2 (Temp corrected ) Arterial Blood 16.7 L HCO3 Arterial Blood -6.6 L Base Excess Arterial Blood 96.3 Oxygen Saturati on Jack Test ACCEPTAB Arterial Blood Left Radial Gas Puncture Site Arterial 0.8 Blood Carboxyhe moglobin Arterial Blood 0.4 Methemoglobin Blood Gas A-a 330.1 H O2 Differential Oxyhemoglobin 95.1 Percent Blood Gas 34.4 Temperature Blood Gas 28.0 Respiration Rate Blood Gas 28 Actual Respiration Rat e Blood Gas VENT - AC Modality FiO2 60.0 Blood Gas Tidal 550.0 Volume Blood Gas Low 8.0 PEEP Setting Blood Gas DT Notified Whom Blood Gas 12/24/2018 6:23 Notified Time :00 PM Test 12/24/18 22:55 12/24/18 23:00 12/24/18 23:57 12/25/18 00:22 Bedside Glucose 106 105 Blood Gas Blood arterial Specimen Source Arterial Blood 12/24/2018 11:25 Date Drawn :24 PM Arterial Blood 7.378 pH (Temp corrected ) Arterial Blood 27.6 L pCO2 (Temp correct) Arterial Blood 69.7 L pO2 (Temp corrected ) Arterial Blood 16.1 L HCO3 Arterial Blood -7.8 L Base Excess Arterial Blood 94.4 L Oxygen Saturati on Jack Test ACCEPTAB Arterial Blood Right Radial Gas Puncture Site Arterial 0.4 Blood Carboxyhe moglobin Arterial Blood 0.2 Methemoglobin Blood Gas A-a 257.3 H O2 Differential Oxyhemoglobin 93.8 Percent Blood Gas 35.8 Temperature Blood Gas 28.0 Respiration Rate Blood Gas VENT - AC Modality FiO2 50.0 Blood Gas Tidal 550.0 Volume Blood Gas Low 8.0 PEEP Setting Blood Gas CMV Notified Whom Blood Gas 12/24/2018 11:33 Notified Time :04 PM White Blood 8.3 Count Red Blood Count 4.81 Hemoglobin 13.4 L Hematocrit 39.9 L Mean 83.0 Corpuscular Volume Mean 27.9 L Corpuscular Hemoglobin Mean 33.6 Corpuscular Hemoglobin Conc ent Red Cell 13.7 Distribution Width Platelet Count 118 L Mean Platelet 10.3 Volume Immature 0.400 Granulocytes % Neutrophils % 83.9 H Lymphocytes % 10.3 L Monocytes % 4.6 Eosinophils % 0.7 Basophils % 0.1 Nucleated Red 0.0 Blood Cells % Immature 0.030 Granulocytes # Neutrophils # 6.9 Lymphocytes # 0.9 Monocytes # 0.4 Eosinophils # 0.1 Basophils # 0.0 Nucleated Red 0.0 Blood Cells # Sodium Level 138 Potassium Level 3.2 L Chloride Level 112 H Carbon Dioxide 17 L Level Anion Gap 9 Blood Urea 30 H Nitrogen Creatinine 2.30 H Est Glomerular 29 L Filtrat Rate mL/min Glucose Level 108 Lactic Acid 1.3 Level Calcium Level 7.3 L Phosphorus 2.6 Level Magnesium Level 2.2 Troponin I 1.340 *H Test 12/25/18 00:30 12/25/18 02:21 12/25/18 04:30 12/25/18 05:00 Urine Random 37.58 Creatinine Urine Random 34 Sodium Bedside Glucose 108 109 Blood Gas Blood Specimen arterial Source Arterial Blood 12/25/2018 4:46 Date Drawn :04 AM Arterial Blood 7.398 pH (Temp corrected ) Arterial Blood 26.5 L pCO2 (Temp correct) Arterial Blood 69.3 L pO2 (Temp corrected ) Arterial Blood 16.0 L HCO3 Arterial Blood -7.1 L Base Excess Arterial Blood 94.0 L Oxygen Saturati on Jack Test ACCEPTAB Arterial Blood Right Radial Gas Puncture Site Arterial 0.3 Blood Carboxyhe moglobin Arterial Blood 0.3 Methemoglobin Blood Gas A-a 257.4 H O2 Differential Oxyhemoglobin 93.4 Percent Blood Gas 37.0 Temperature Blood Gas 28.0 Respiration Rate Blood Gas 28 Actual Respiration Rat e Blood Gas VENT - AC Modality FiO2 50.0 Blood Gas Tidal 550.0 Volume Blood Gas Low 8.0 PEEP Setting Blood Gas 31.0 Inspiratory Pressure Blood Gas MM Notified Whom Blood Gas 12/25/2018 4:54 Notified Time :47 AM Test 12/25/18 05:40 12/25/18 06:00 12/25/18 06:07 12/25/18 07:52 White Blood 7.7 Count Red Blood Count 4.79 Hemoglobin 13.3 L Hematocrit 39.7 L Mean 82.9 Corpuscular Volume Mean 27.8 L Corpuscular Hemoglobin Mean 33.5 Corpuscular Hemoglobin Conc ent Red Cell 13.7 Distribution Width Platelet Count 117 L Mean Platelet 10.5 H Volume Immature 0.700 H Granulocytes % Neutrophils % 83.3 H Lymphocytes % 10.7 L Monocytes % 4.2 Eosinophils % 0.8 Basophils % 0.3 Nucleated Red 0.0 Blood Cells % Immature 0.050 H Granulocytes # Neutrophils # 6.4 Lymphocytes # 0.8 Monocytes # 0.3 Eosinophils # 0.1 Basophils # 0.0 Nucleated Red 0.0 Blood Cells # Sodium Level 139 Potassium Level 3.0 L Chloride Level 115 H Carbon Dioxide 18 L Level Anion Gap 6 Blood Urea 30 H Nitrogen Creatinine 2.45 H Est Glomerular 27 L Filtrat Rate mL/min Glucose Level 117 Calcium Level 7.5 L Phosphorus 2.3 L Level Total Bilirubin 0.6 Direct 0.00 Bilirubin Indirect 0.6 Bilirubin Aspartate Amino 75 #H Transf (AST/SGO T) Alanine 46 Aminotransferas e (ALT/SGPT) Alkaline 53 Phosphatase Total Protein 5.0 L Albumin 2.6 L Globulin 2.40 Albumin/Globuli 1.08 n Ratio Magnesium Level 2.2 Bedside Glucose 118 122 Test 12/25/18 10:25 Bedside Glucose 119 Medications Medication Current Medications Sodium Chloride 1,000 ml @ 100 mls/hr Q10H IV Last administered on 12/25/18at 05:29; Admin Dose 100 MLS/HR; Start 12/23/18 at 05:44; Status Hold IV Flush (NS 3 ml) 3 ml PER PROTOCOL IV ; Start 12/23/18 at 06:00 Ondansetron HCl (Zofran Inj) 4 mg Q6H PRN IV NAUSEA/VOMITING; Start 12/23/18 at 06:00 Pantoprazole (Protonix Iv) 40 mg DAILY@06 IV Last administered on 12/25/18at 05:29; Admin Dose 40 MG; Start 12/23/18 at 06:00 Insulin Aspart (Novolog Insulin Pen) NOVOLOG *MILD* ALGORITHM Q4 SC ; Start 12/23/18 at 09:00; Status Hold Miscellaneous Information 1 ea NOTE XX ; Start 12/23/18 at 06:30 Glucose (Glutose) 15 gm Q15M PRN PO DECREASED GLUCOSE; Start 12/23/18 at 06:30 Glucose (Glutose) 22.5 gm Q15M PRN PO DECREASED GLUCOSE; Start 12/23/18 at 06:30 Dextrose (D50w Syringe) 25 ml Q15M PRN IV DECREASED GLUCOSE; Start 12/23/18 at 06:30 Dextrose (D50w Syringe) 50 ml Q15M PRN IV DECREASED GLUCOSE; Start 12/23/18 at 06:30 Glucagon (Glucagen) 1 mg Q15M PRN IM DECREASED GLUCOSE; Start 12/23/18 at 06:30 Glucose (Glutose) 15 gm Q15M PRN BUCCAL DECREASED GLUCOSE; Start 12/23/18 at 06:30 Fentanyl 100 ml @ 2.5 mls/hr TITRATE IV Last administered on 12/24/18at 17:33; Admin Dose 2.5 MLS/HR; Start 12/23/18 at 10:00 Insulin Human Regular 100 unit/ Sodium Chloride 100 ml @ 0 mls/hr PER PROTOCOL IV Last administered on 12/24/18at 19:46; Admin Dose 0.2 MLS/HR; Start 12/23/18 at 10:00 Miscellaneous Information (* Miscellaneous Pharmacy Order) Treatment of Hypoglycemia: 1.BG 51... Per protocol XX ; Start 12/23/18 at 10:00 Dextrose (D50w Syringe) 25 ml Q15M PRN IV .DECREASED GLUCOSE; Start 12/23/18 at 10:00 Dextrose (D50w Syringe) 50 ml Q15M PRN IV .DECREASED GLUCOSE; Start 12/23/18 at 10:00 Vecuronium Hamilton 100 mg/ Dextrose 100 ml @ 6.82 mls/hr TITRATE IV Last administered on 12/24/18 04:12; Admin Dose 0.05 MLS/HR; Start 12/23/18 at 10:30 Propofol 100 ml @ 4.091 mls/ hr Q12H IV Last administered on 12/24/18 20:05; Admin Dose 8.182 MLS/HR; Start 12/23/18 at 11:00 Piperacillin Sod/ Tazobactam Sod 100 ml @ 200 mls/hr Q8 IVPB Last administered on 12/25/18 05:29; Admin Dose 200 MLS/HR; Start 12/23/18 at 14:00 Eye Lubricant (Akwa Oint) 1 applic Q6H BOTH EYES Last administered on 12/25/18 07:51; Admin Dose 1 APPLIC; Start 12/23/18 at 13:00 Nitroglycerin/ Dextrose 250 ml @ 1.5 mls/hr TITRATE IV Last administered on 12/24/18 07:10; Admin Dose 60 MLS/HR; Start 12/23/18 at 13:00 Buspirone HCl (Buspar) 30 mg Q8 NGT Last administered on 12/25/18 05:29; Admin Dose 30 MG; Start 12/23/18 at 14:00 Acetaminophen (Tylenol Tab) 650 mg Q8 NGT Last administered on 12/25/18 05:30; Admin Dose 650 MG; Start 12/23/18 at 14:00 Eye Lubricant (Artificial Tears Oph) 2 drop Q6H BOTH EYES Last administered on 12/25/18 07:51; Admin Dose 2 DROP; Start 12/23/18 at 19:00 Potassium Chloride 50 ml @ 50 mls/hr K PROTOCOL PRN IVPB PENDING LAB VALUE Last administered on 12/24/18 03:05; Admin Dose 50 MLS/HR; Start 12/23/18 at 15:30 Magnesium Sulfate 50 ml @ 25 mls/hr PRN PRN IVPB MAG <2 Last administered on 12/24/18 09:08; Admin Dose 25 MLS/HR; Start 12/23/18 at 16:00 Midazolam HCl 50 ml @ 1 mls/hr TITRATE IV Last administered on 12/24/18 19:39; Admin Dose 2 MLS/HR; Start 12/23/18 at 16:30 Thiamine HCl (Vitamin B1) 100 mg DAILY IM Last administered on 12/24/18at 09:10; Admin Dose 100 MG; Start 12/23/18 at 19:30 Albuterol (Proventil 0.083% (Neb)) 1.25 mg Q2H RESP THERAPY PRN HHN WHEEZING AND SOB; Start 12/23/18 at 23:00 Nicardipine HCl 200 ml @ 50 mls/hr TITRATE IV Last administered on 12/24/18at 07:14; Admin Dose 50 MLS/HR; Start 12/24/18 at 07:00 Norepinephrine 250 ml @ 1.875 mls/ hr TITRATE IV Last administered on 12/24/18at 20:08; Admin Dose 18.75 MLS/HR; Start 12/24/18 at 09:00 Sodium Chloride 500 ml @ 0 mls/hr Q0M PRN IV UNABLE TO VOID; Start 12/24/18 at 19:30 Diagnostic Test (Pha) (Accu-Chek) 1 ea Q2H XX ; Start 12/25/18 at 02:00 Potassium Chloride 50 ml @ 25 mls/hr Q2H IVPB Last administered on 12/25/18at 10:04; Admin Dose 25 MLS/HR; Start 12/25/18 at 09:30; Stop 12/25/18 at 13:29 Sodium Bicarbonate 100 meq/Dextrose/ Sodium Chloride 1,100 ml @ 50 mls/hr Q22H IV Last administered on 12/25/18at 11:48; Admin Dose 50 MLS/HR; Start 12/25/18 at 10:00 Past Medical History reviewed Home Meds Reported Medications Lactulose (Generlac) 10 Gm/15 Ml Solution, 10 GM PO DAILY 12/23/18 Rivaroxaban* (Xarelto*) 20 Mg Tablet, 20 MG PO WITH DINNER, TAB 12/23/18 Metformin* (Glucophage*) 1,000 Mg Tablet, 1000 MG PO BID, #60 TAB 12/23/18 Atorvastatin* (Atorvastatin*) 40 Mg Tablet, 40 MG PO QHS, #30 TAB 12/23/18 Naproxen* (Naprosyn*) 500 Mg Tablet, 500 MG PO DAILY, TAB 12/23/18 Alprazolam* (Alprazolam*) 0.5 Mg Tablet, 0.5 MG PO Q8H PRN for ANXIETY, TAB 12/23/18 Enalapril Maleate* (Enalapril Maleate*) 20 Mg Tablet, 20 MG PO DAILY for 30 Days, #60 12/23/18 Captopril* (Captopril*) 25 Mg Tablet, 25 MG PO BID for 30 Days, #60 12/23/18 Medications Current Medications Sodium Chloride 1,000 ml @ 100 mls/hr Q10H IV Last administered on 12/25/18at 05:29; Admin Dose 100 MLS/HR; Start 12/23/18 at 05:44; Status Hold IV Flush (NS 3 ml) 3 ml PER PROTOCOL IV ; Start 12/23/18 at 06:00 Ondansetron HCl (Zofran Inj) 4 mg Q6H PRN IV NAUSEA/VOMITING; Start 12/23/18 at 06:00 Pantoprazole (Protonix Iv) 40 mg DAILY@06 IV Last administered on 12/25/18at 05:29; Admin Dose 40 MG; Start 12/23/18 at 06:00 Insulin Aspart (Novolog Insulin Pen) NOVOLOG *MILD* ALGORITHM Q4 SC ; Start 12/23/18 at 09:00; Status Hold Miscellaneous Information 1 ea NOTE XX ; Start 12/23/18 at 06:30 Glucose (Glutose) 15 gm Q15M PRN PO DECREASED GLUCOSE; Start 12/23/18 at 06:30 Glucose (Glutose) 22.5 gm Q15M PRN PO DECREASED GLUCOSE; Start 12/23/18 at 06:30 Dextrose (D50w Syringe) 25 ml Q15M PRN IV DECREASED GLUCOSE; Start 12/23/18 at 06:30 Dextrose (D50w Syringe) 50 ml Q15M PRN IV DECREASED GLUCOSE; Start 12/23/18 at 06:30 Glucagon (Glucagen) 1 mg Q15M PRN IM DECREASED GLUCOSE; Start 12/23/18 at 06:30 Glucose (Glutose) 15 gm Q15M PRN BUCCAL DECREASED GLUCOSE; Start 12/23/18 at 06:30 Fentanyl 100 ml @ 2.5 mls/hr TITRATE IV Last administered on 12/24/18at 17:33; Admin Dose 2.5 MLS/HR; Start 12/23/18 at 10:00 Insulin Human Regular 100 unit/ Sodium Chloride 100 ml @ 0 mls/hr PER PROTOCOL IV Last administered on 12/24/18 19:46; Admin Dose 0.2 MLS/HR; Start 12/23/18 at 10:00 Miscellaneous Information (* Miscellaneous Pharmacy Order) Treatment of Hypoglycemia: 1.BG 51... Per protocol XX ; Start 12/23/18 at 10:00 Dextrose (D50w Syringe) 25 ml Q15M PRN IV .DECREASED GLUCOSE; Start 12/23/18 at 10:00 Dextrose (D50w Syringe) 50 ml Q15M PRN IV .DECREASED GLUCOSE; Start 12/23/18 at 10:00 Vecuronium Hamilton 100 mg/ Dextrose 100 ml @ 6.82 mls/hr TITRATE IV Last administered on 12/24/18 04:12; Admin Dose 0.05 MLS/HR; Start 12/23/18 at 10:30 Propofol 100 ml @ 4.091 mls/ hr Q12H IV Last administered on 12/24/18 20:05; Admin Dose 8.182 MLS/HR; Start 12/23/18 at 11:00 Piperacillin Sod/ Tazobactam Sod 100 ml @ 200 mls/hr Q8 IVPB Last administered on 12/25/18 05:29; Admin Dose 200 MLS/HR; Start 12/23/18 at 14:00 Eye Lubricant (Akwa Oint) 1 applic Q6H BOTH EYES Last administered on 12/25/18 07:51; Admin Dose 1 APPLIC; Start 12/23/18 at 13:00 Nitroglycerin/ Dextrose 250 ml @ 1.5 mls/hr TITRATE IV Last administered on 12/24/18 07:10; Admin Dose 60 MLS/HR; Start 12/23/18 at 13:00 Buspirone HCl (Buspar) 30 mg Q8 NGT Last administered on 12/25/18 05:29; Admin Dose 30 MG; Start 12/23/18 at 14:00 Acetaminophen (Tylenol Tab) 650 mg Q8 NGT Last administered on 12/25/18 05:30; Admin Dose 650 MG; Start 12/23/18 at 14:00 Eye Lubricant (Artificial Tears Oph) 2 drop Q6H BOTH EYES Last administered on 2/15/19at 07:51; Admin Dose 2 DROP; Start 12/23/18 at 19:00 Potassium Chloride 50 ml @ 50 mls/hr K PROTOCOL PRN IVPB PENDING LAB VALUE Last administered on 12/24/18 03:05; Admin Dose 50 MLS/HR; Start 12/23/18 at 15:30 Magnesium Sulfate 50 ml @ 25 mls/hr PRN PRN IVPB MAG <2 Last administered on 12/24/18 09:08; Admin Dose 25 MLS/HR; Start 12/23/18 at 16:00 Midazolam HCl 50 ml @ 1 mls/hr TITRATE IV Last administered on 12/24/18 19:39; Admin Dose 2 MLS/HR; Start 12/23/18 at 16:30 Thiamine HCl (Vitamin B1) 100 mg DAILY IM Last administered on 12/24/18 09:10; Admin Dose 100 MG; Start 12/23/18 at 19:30 Albuterol (Proventil 0.083% (Neb)) 1.25 mg Q2H RESP THERAPY PRN HHN WHEEZING AND SOB; Start 12/23/18 at 23:00 Nicardipine HCl 200 ml @ 50 mls/hr TITRATE IV Last administered on 12/24/18 07:14; Admin Dose 50 MLS/HR; Start 12/24/18 at 07:00 Norepinephrine 250 ml @ 1.875 mls/ hr TITRATE IV Last administered on 12/24/18 20:08; Admin Dose 18.75 MLS/HR; Start 12/24/18 at 09:00 Sodium Chloride 500 ml @ 0 mls/hr Q0M PRN IV UNABLE TO VOID; Start 12/24/18 at 19:30 Diagnostic Test (Pha) (Accu-Chek) 1 ea Q2H XX ; Start 12/25/18 at 02:00 Potassium Chloride 50 ml @ 25 mls/hr Q2H IVPB Last administered on 12/25/18at 10:04; Admin Dose 25 MLS/HR; Start 12/25/18 at 09:30; Stop 12/25/18 at 13:29 Sodium Bicarbonate 100 meq/Dextrose/ Sodium Chloride 1,100 ml @ 50 mls/hr Q22H IV Last administered on 12/25/18at 11:48; Admin Dose 50 MLS/HR; Start 12/25/18 at 10:00 Allergies: Coded Allergies: No Known Allergy (Unverified , 12/23/18) Past Surgical History reviewed Social History reviewed Smoking Status: Current every day smoker OLAF FAYE NP Dec 25, 2018 11:59
--- NOTE | 2018-12-25 13:29 | RADRPT ---
Echocardiogram Report Patient Name: Mildred VALIENTE ID: [id number] : 1950 (68y 5m)Study Date: 12/23/2018 11:05:51 AM Gender: MAccession #: [id number] Tech: SN Location: Ref.Physician: KELL VILLA Height(Cm): BSA: Weight(Kg): Quality: AdequateAccount #: Procedures: Echocardiographic Report: Transthoracic echocardiogram with complete 2D, M-Mode, and doppler examination. Indications: Cardiac Arrest. Measurements: 2D/M Mode Doppler Measurement Value Normal Range Measurement Value Normal Range LVIDd 2D 4.9 [ 4.2 - 5.8 ] cm AV Peak Juan Diego 1.3 [ 100.0 - 170.0 ] cm/sec LVIDs 2D 3.3 [ 2.5 - 4.0 ] cm AV Peak PG 7.0 [ 2.0 - 9.0 ] mmHg LVPWd 2D 1.3 [ 0.6 - 1.0 ] cm LVOT Peak Juan Diego 0.6 [ 70.0 - 110.0 ] cm/sec IVSd 2D 1.4 [ 0.6 - 1.0 ] cm LVOT Peak PG 2.0 [ 2.0 - 6.0 ] mmHg AoR Diam 2D 2.4 [ 2.6 - 3.4 ] cm MV E Peak Juan Diego 0.7 [ 60.0 - 130.0 ] cm/sec EDV 2D 112.0 [ 62.0 - 150.0 ] ml MV A Peak Juan Diego 0.6 [ 100.0 - 120.0 ] cm/sec ESV 2D 44.8 [ 21.0 - 61.0 ] ml MV E/A 1.1 [ 0.8 - 1.5 ] ratio EF 2D 60.0 [ 52.0 - 72.0 ] percent MV Decel Time 299 [ 104 - 258 ] msec LA Dimen 2D 4.7 [ 3.0 - 4.0 ] cm Lat E` Juan Diego 0.1 [ 10.0 - 15.0 ] cm/sec Lateral E/E` 8.7 [ 1.0 - 2.0 ] ratio Med E` Juan Diego 0.1 cm/sec MV E/A 1.1 [ 0.8 - 1.5 ] ratio TR Peak Juan Diego 2.0 [ 100.0 - 280.0 ] cm/sec TR Peak PG 15.0 mmHg RVSP 30.0 [ 10.0 - 36.0 ] mmHg Findings: Left Ventricle: Normal left ventricular systolic function. Normal left ventricular cavity size. Mild concentric left ventricular hypertrophy. Ejection fraction is visually estimated at 60 %. Right Ventricle: Normal right ventricular size. Normal right ventricular systolic function. Left Atrium: There is mild enlargement of left atrium. Right Atrium: The right atrium is normal in size. Mitral Valve: Mild mitral leaflet calcification. Mild mitral annular calcification. Trace mitral regurgitation. Aortic Valve: No significant aortic stenosis or insufficiency. Aortic cusps appear mildly calcified. Tricuspid Valve: Normal appearance of the tricuspid valve. Estimated peak PA systolic pressure 30 mmHg. There is mild tricuspid regurgitation. Pericardium: Normal pericardium with no significant pericardial effusion. Left pleural effusion seen. Aorta: Normal aortic root. IVC: Dilated IVC without respiratory collapse, however, patient on ventilator. Conclusions: Normal left ventricular systolic function. Normal left ventricular cavity size. Mild concentric left ventricular hypertrophy. Ejection fraction is visually estimated at 60 %. Electronically Signed By: Jose Guillen 2018-12-25 13:29:05 PST
--- NOTE | 2018-12-25 13:37 | CONS ---
Assessment/Plan Assessment/Plan Hospital Course (Demo Recall) Assessment: Status post cardiac arrest - etiology unclear, coronary findings on cardiac catheterization do not support cardiac etiology (left main iFR was negative and the RCA does not explain the arrest) Acute ventilator-dependent respiratory failure - intubated due to cardiac arrest History of hypertension - currently hypotensive and on pressor support Acute kidney injury Probable anoxic brain injury - follow up neurology Coronary artery disease, prior history of PCI - the RCA was not intervened upon as it was unlikely the culprit of the cardiac arrest; if patient survives the hospitalization and mentation improves, will then proceed with PCI Diabetes mellitus Recommendations: -pressor support, wean as tolerated -echocardiogram showed normal LVEF 60% mild LVH Consultation Date/Type/Reason Admit Date/Time Dec 23, 2018 at 05:39 Initial Consult Date Type of Consult Cardiology Date/Time of Note DATE: 12/25/18 TIME: 13:33 24 HR Interval Summary Free Text/Dictation Remains on Levophed drip. Remains intubated. Off sedation and unresponsive. Echocardiogram reviewed. Detailed Summary Additional Comments Unable to obtain review of systems, patient is intubated. Exam/Review of Systems Vital Signs Vitals Vital Signs Date Temp Pulse Resp B/P (MAP) Pulse Ox O2 O2 Flow FiO2 Time Delivery Rate 12/25/18 70 28 110/53 95 13:15 (72) 12/25/18 98.3 Mechanical 12:00 Ventilator 12/25/18 55 05:30 Intake and Output 12/24/18 12/24/18 12/25/18 1515:00 23:00 07:00 IntakeIntake Total 2193.508 ml 1689.821 ml 1089.818 ml OutputOutput Total 65 ml 14 ml 2052 ml BalanceBalance 2128.508 ml 1675.821 ml -962.182 ml Exam Exam Constitutional: No alert Head: normocephalic, atraumatic ENMT: intubated Neck: supple, jvd (9cm) Respiratory: diminished breath sounds; No clear to auscultation Cardiovascular: regular rate and rhythm, systolic murmur (2/6 DMITRI); No edema Gastrointestinal: soft; No distended Neurological: No nl mental status, No nl speech Labs Result Diagram: 12/25/1840 12/25/18 0540 Results 24hrs Laboratory Tests Test 12/24/18 14:21 12/24/18 16:14 12/24/18 17:03 12/24/18 17:30 Bedside Glucose 122 96 100 Blood Gas Blood Specimen arterial Source Arterial Blood 12/24/2018 6:00 Date Drawn :00 PM Arterial Blood 7.431 pH (Temp corrected ) Arterial Blood 25.1 L pCO2 (Temp correct) Arterial Blood 74.0 L pO2 (Temp corrected ) Arterial Blood 16.7 L HCO3 Arterial Blood -6.6 L Base Excess Arterial Blood 96.3 Oxygen Saturati on Jack Test ACCEPTAB Arterial Blood Left Radial Gas Puncture Site Arterial 0.8 Blood Carboxyhe moglobin Arterial Blood 0.4 Methemoglobin Blood Gas A-a 330.1 H O2 Differential Oxyhemoglobin 95.1 Percent Blood Gas 34.4 Temperature Blood Gas 28.0 Respiration Rate Blood Gas 28 Actual Respiration Rat e Blood Gas VENT - AC Modality FiO2 60.0 Blood Gas Tidal 550.0 Volume Blood Gas Low 8.0 PEEP Setting Blood Gas DT Notified Whom Blood Gas 12/24/2018 6:23 Notified Time :00 PM Test 12/24/18 18:06 12/24/18 18:11 12/24/18 18:49 12/24/18 19:57 Bedside Glucose 96 108 106 White Blood 9.5 # Count Red Blood Count 5.11 Hemoglobin 13.9 L Hematocrit 42.1 Mean 82.4 Corpuscular Volume Mean 27.2 L Corpuscular Hemoglobin Mean 33.0 Corpuscular Hemoglobin Conc ent Red Cell 13.6 Distribution Width Platelet Count 135 L Mean Platelet 10.3 Volume Immature 0.500 H Granulocytes % Neutrophils % 83.5 H Lymphocytes % 10.8 L Monocytes % 4.9 Eosinophils % 0.2 Basophils % 0.1 Nucleated Red 0.0 Blood Cells % Immature 0.050 H Granulocytes # Neutrophils # 7.9 H Lymphocytes # 1.0 Monocytes # 0.5 Eosinophils # 0.0 Basophils # 0.0 Nucleated Red 0.0 Blood Cells # Sodium Level 139 Potassium Level 3.3 L Chloride Level 113 H Carbon Dioxide 17 L Level Anion Gap 9 Blood Urea 31 H Nitrogen Creatinine 1.81 H Est Glomerular 38 L Filtrat Rate mL/min Glucose Level 102 # Lactic Acid 1.6 Level Calcium Level 7.4 L Phosphorus 2.7 Level Magnesium Level 2.4 Troponin I 1.240 *H Test 12/24/18 21:00 2/14/19 21:56 12/24/18 22:00 12/24/18 22:55 Bedside Glucose 104 105 106 Blood Gas Blood arterial Specimen Source Arterial Blood 12/24/2018 6:00: Date Drawn 00 PM Arterial Blood 7.431 pH (Temp corrected ) Arterial Blood 25.1 L pCO2 (Temp correct) Arterial Blood 74.0 L pO2 (Temp corrected ) Arterial Blood 16.7 L HCO3 Arterial Blood -6.6 L Base Excess Arterial Blood 96.3 Oxygen Saturati on Jack Test ACCEPTAB Arterial Blood Left Radial Gas Puncture Site Arterial 0.8 Blood Carboxyhe moglobin Arterial Blood 0.4 Methemoglobin Blood Gas A-a 330.1 H O2 Differential Oxyhemoglobin 95.1 Percent Blood Gas 34.4 Temperature Blood Gas 28.0 Respiration Rate Blood Gas 28 Actual Respiration Rat e Blood Gas VENT - AC Modality FiO2 60.0 Blood Gas Tidal 550.0 Volume Blood Gas Low 8.0 PEEP Setting Blood Gas DT Notified Whom Blood Gas 12/24/2018 6:23: Notified Time 00 PM Test 12/24/18 23:00 12/24/18 23:57 12/25/18 00:22 12/25/18 00:30 Blood Gas Blood arterial Specimen Source Arterial Blood 12/24/2018 11:25 Date Drawn :24 PM Arterial Blood 7.378 pH (Temp corrected ) Arterial Blood 27.6 L pCO2 (Temp correct) Arterial Blood 69.7 L pO2 (Temp corrected ) Arterial Blood 16.1 L HCO3 Arterial Blood -7.8 L Base Excess Arterial Blood 94.4 L Oxygen Saturati on Jack Test ACCEPTAB Arterial Blood Right Radial Gas Puncture Site Arterial 0.4 Blood Carboxyhe moglobin Arterial Blood 0.2 Methemoglobin Blood Gas A-a 257.3 H O2 Differential Oxyhemoglobin 93.8 Percent Blood Gas 35.8 Temperature Blood Gas 28.0 Respiration Rate Blood Gas VENT - AC Modality FiO2 50.0 Blood Gas Tidal 550.0 Volume Blood Gas Low 8.0 PEEP Setting Blood Gas CMV Notified Whom Blood Gas 12/24/2018 11:33 Notified Time :04 PM Bedside Glucose 105 White Blood 8.3 Count Red Blood Count 4.81 Hemoglobin 13.4 L Hematocrit 39.9 L Mean 83.0 Corpuscular Volume Mean 27.9 L Corpuscular Hemoglobin Mean 33.6 Corpuscular Hemoglobin Conc ent Red Cell 13.7 Distribution Width Platelet Count 118 L Mean Platelet 10.3 Volume Immature 0.400 Granulocytes % Neutrophils % 83.9 H Lymphocytes % 10.3 L Monocytes % 4.6 Eosinophils % 0.7 Basophils % 0.1 Nucleated Red 0.0 Blood Cells % Immature 0.030 Granulocytes # Neutrophils # 6.9 Lymphocytes # 0.9 Monocytes # 0.4 Eosinophils # 0.1 Basophils # 0.0 Nucleated Red 0.0 Blood Cells # Sodium Level 138 Potassium Level 3.2 L Chloride Level 112 H Carbon Dioxide 17 L Level Anion Gap 9 Blood Urea 30 H Nitrogen Creatinine 2.30 H Est Glomerular 29 L Filtrat Rate mL/min Glucose Level 108 Lactic Acid 1.3 Level Calcium Level 7.3 L Phosphorus 2.6 Level Magnesium Level 2.2 Troponin I 1.340 *H Urine Random 37.58 Creatinine Urine Random 34 Sodium Test 12/25/18 02:21 12/25/18 04:30 12/25/18 05:00 12/25/18 05:40 Bedside Glucose 108 109 Blood Gas Blood arterial Specimen Source Arterial Blood 12/25/2018 4:46: Date Drawn 04 AM Arterial Blood 7.398 pH (Temp corrected ) Arterial Blood 26.5 L pCO2 (Temp correct) Arterial Blood 69.3 L pO2 (Temp corrected ) Arterial Blood 16.0 L HCO3 Arterial Blood -7.1 L Base Excess Arterial Blood 94.0 L Oxygen Saturati on Jack Test ACCEPTAB Arterial Blood Right Radial Gas Puncture Site Arterial 0.3 Blood Carboxyhe moglobin Arterial Blood 0.3 Methemoglobin Blood Gas A-a 257.4 H O2 Differential Oxyhemoglobin 93.4 Percent Blood Gas 37.0 Temperature Blood Gas 28.0 Respiration Rate Blood Gas 28 Actual Respiration Rat e Blood Gas VENT - AC Modality FiO2 50.0 Blood Gas Tidal 550.0 Volume Blood Gas Low 8.0 PEEP Setting Blood Gas 31.0 Inspiratory Pressure Blood Gas MM Notified Whom Blood Gas 12/25/2018 4:54: Notified Time 47 AM White Blood 7.7 Count Red Blood Count 4.79 Hemoglobin 13.3 L Hematocrit 39.7 L Mean 82.9 Corpuscular Volume Mean 27.8 L Corpuscular Hemoglobin Mean 33.5 Corpuscular Hemoglobin Conc ent Red Cell 13.7 Distribution Width Platelet Count 117 L Mean Platelet 10.5 H Volume Immature 0.700 H Granulocytes % Neutrophils % 83.3 H Lymphocytes % 10.7 L Monocytes % 4.2 Eosinophils % 0.8 Basophils % 0.3 Nucleated Red 0.0 Blood Cells % Immature 0.050 H Granulocytes # Neutrophils # 6.4 Lymphocytes # 0.8 Monocytes # 0.3 Eosinophils # 0.1 Basophils # 0.0 Nucleated Red 0.0 Blood Cells # Sodium Level 139 Potassium Level 3.0 L Chloride Level 115 H Carbon Dioxide 18 L Level Anion Gap 6 Blood Urea 30 H Nitrogen Creatinine 2.45 H Est Glomerular 27 L Filtrat Rate mL/min Glucose Level 117 Calcium Level 7.5 L Phosphorus 2.3 L Level Total Bilirubin 0.6 Direct 0.00 Bilirubin Indirect 0.6 Bilirubin Aspartate Amino 75 #H Transf (AST/SGO T) Alanine 46 Aminotransferas e (ALT/SGPT) Alkaline 53 Phosphatase Total Protein 5.0 L Albumin 2.6 L Globulin 2.40 Albumin/Globuli 1.08 n Ratio Test 12/25/18 06:00 12/25/18 06:07 12/25/18 07:52 12/25/18 10:25 Magnesium Level 2.2 Bedside Glucose 118 122 119 Test 12/25/18 12:58 Bedside Glucose 117 Medications Medications Current Medications Sodium Chloride 1,000 ml @ 100 mls/hr Q10H IV Last administered on 12/25/18at 05:29; Admin Dose 100 MLS/HR; Start 12/23/18 at 05:44; Status Hold IV Flush (NS 3 ml) 3 ml PER PROTOCOL IV ; Start 12/23/18 at 06:00 Ondansetron HCl (Zofran Inj) 4 mg Q6H PRN IV NAUSEA/VOMITING; Start 12/23/18 at 06:00 Pantoprazole (Protonix Iv) 40 mg DAILY@06 IV Last administered on 12/25/18at 05:29; Admin Dose 40 MG; Start 12/23/18 at 06:00 Insulin Aspart (Novolog Insulin Pen) NOVOLOG *MILD* ALGORITHM Q4 SC ; Start 12/23/18 at 09:00; Status Hold Miscellaneous Information 1 ea NOTE XX ; Start 12/23/18 at 06:30 Glucose (Glutose) 15 gm Q15M PRN PO DECREASED GLUCOSE; Start 12/23/18 at 06:30 Glucose (Glutose) 22.5 gm Q15M PRN PO DECREASED GLUCOSE; Start 12/23/18 at 06:30 Dextrose (D50w Syringe) 25 ml Q15M PRN IV DECREASED GLUCOSE; Start 12/23/18 at 06:30 Dextrose (D50w Syringe) 50 ml Q15M PRN IV DECREASED GLUCOSE; Start 12/23/18 at 06:30 Glucagon (Glucagen) 1 mg Q15M PRN IM DECREASED GLUCOSE; Start 12/23/18 at 06:30 Glucose (Glutose) 15 gm Q15M PRN BUCCAL DECREASED GLUCOSE; Start 12/23/18 at 06:30 Fentanyl 100 ml @ 2.5 mls/hr TITRATE IV Last administered on 12/24/18at 17:33; Admin Dose 2.5 MLS/HR; Start 12/23/18 at 10:00 Insulin Human Regular 100 unit/ Sodium Chloride 100 ml @ 0 mls/hr PER PROTOCOL IV Last administered on 12/24/18at 19:46; Admin Dose 0.2 MLS/HR; Start 12/23/18 at 10:00 Miscellaneous Information (* Miscellaneous Pharmacy Order) Treatment of Hypoglycemia: 1.BG 51... Per protocol XX ; Start 12/23/18 at 10:00 Dextrose (D50w Syringe) 25 ml Q15M PRN IV .DECREASED GLUCOSE; Start 12/23/18 at 10:00 Dextrose (D50w Syringe) 50 ml Q15M PRN IV .DECREASED GLUCOSE; Start 12/23/18 at 10:00 Vecuronium [place] 100 mg/ Dextrose 100 ml @ 6.82 mls/hr TITRATE IV Last administered on 12/24/18at 04:12; Admin Dose 0.05 MLS/HR; Start 12/23/18 at 10:30 Propofol 100 ml @ 4.091 mls/ hr Q12H IV Last administered on 12/24/18at 20:05; Admin Dose 8.182 MLS/HR; Start 12/23/18 at 11:00 Piperacillin Sod/ Tazobactam Sod 100 ml @ 200 mls/hr Q8 IVPB Last administered on 12/25/18at 13:29; Admin Dose 200 MLS/HR; Start 12/23/18 at 14:00 Eye Lubricant (Akwa Oint) 1 applic Q6H BOTH EYES Last administered on 12/25/18at 13:30; Admin Dose 1 APPLIC; Start 12/23/18 at 13:00 Nitroglycerin/ Dextrose 250 ml @ 1.5 mls/hr TITRATE IV Last administered on 12/24/18 07:10; Admin Dose 60 MLS/HR; Start 12/23/18 at 13:00 Buspirone HCl (Buspar) 30 mg Q8 NGT Last administered on 12/25/18 05:29; Admin Dose 30 MG; Start 12/23/18 at 14:00 Acetaminophen (Tylenol Tab) 650 mg Q8 NGT Last administered on 12/25/18 05:30; Admin Dose 650 MG; Start 12/23/18 at 14:00 Eye Lubricant (Artificial Tears Oph) 2 drop Q6H BOTH EYES Last administered on 12/25/18 13:29; Admin Dose 2 DROP; Start 12/23/18 at 19:00 Potassium Chloride 50 ml @ 50 mls/hr K PROTOCOL PRN IVPB PENDING LAB VALUE Last administered on 12/24/18 03:05; Admin Dose 50 MLS/HR; Start 12/23/18 at 15:30 Magnesium Sulfate 50 ml @ 25 mls/hr PRN PRN IVPB MAG <2 Last administered on 12/24/18 09:08; Admin Dose 25 MLS/HR; Start 12/23/18 at 16:00 Midazolam HCl 50 ml @ 1 mls/hr TITRATE IV Last administered on 12/24/18 19:39; Admin Dose 2 MLS/HR; Start 12/23/18 at 16:30 Thiamine HCl (Vitamin B1) 100 mg DAILY IM Last administered on 12/24/18 09:10; Admin Dose 100 MG; Start 12/23/18 at 19:30 Albuterol (Proventil 0.083% (Neb)) 1.25 mg Q2H RESP THERAPY PRN HHN WHEEZING AND SOB; Start 12/23/18 at 23:00 Nicardipine HCl 200 ml @ 50 mls/hr TITRATE IV Last administered on 12/24/18 07:14; Admin Dose 50 MLS/HR; Start 12/24/18 at 07:00 Norepinephrine 250 ml @ 1.875 mls/ hr TITRATE IV Last administered on 20:08; Admin Dose 18.75 MLS/HR; Start 12/24/18 at 09:00 Sodium Chloride 500 ml @ 0 mls/hr Q0M PRN IV UNABLE TO VOID; Start 12/24/18 at 19:30 Diagnostic Test (Pha) (Accu-Chek) 1 ea Q2H XX ; Start 12/25/18 at 02:00 Sodium Bicarbonate 100 meq/Dextrose/ Sodium Chloride 1,100 ml @ 50 mls/hr Q22H IV Last administered on 12/25/18at 11:48; Admin Dose 50 MLS/HR; Start 12/25/18 at 10:00 MAMI MCCLOUD MD Dec 25, 2018 13:37
[2018-12-25] MEDS: NORepinephrine 8MG/250 ML (PMX 250 ML IV SCH (13:46)
--- NOTE | 2018-12-25 14:53 | NUR ---
ICU WOUND CARE ROUNDS RECOMMENDATIONS: 1. OFFLOADING: - Turning and repositioning q 2 hours - Specialty Bed Low air loss surface - Sacrococcyx: Cover with foam border dressing for prophylactic protection. Change foam dressing every 3 days and as needed. Assess skin under dressing every shift. - Heel Protectors - HeelZup [place] - Bilateral heels and ankles: Protect with foam dressing (Allevyn heels). Change foam dressing every 3 days and as needed. Assess skin under dressing every shift. - Head position (Waffle cushion) - composite mechanic related areas of concern: - Oxygen related device ( ET Tube) - pulmonary vest: skin assessment every shift, apply padding to edges as needed 2. Incontinence Care -Pericare: Cleanse with foam cleanser. Pat dry. Apply Barrier cream (Calazime) every shift and as needed. 3. NUTRITION: - Diet: Tube feedings Tube Feeding per RD recommendation - Recommended to consider Multivitamins 1 daily. Please follow up with MD for recommendation. Recommendations given to edi consultant to follow up with Primary nurse. Beth Olivera, BSN RN CWOCN
--- NOTE | 2018-12-25 15:03 | NUR ---
NUTRITION NOTE: PATIENT S/P CARDIAC ARREST, ? ANOXIC BRAIN INJURY, PROGNOSIS GUARDED. DIET RXD DIABETISOURCE AC @ 50 ML/HR PROVIDES 1440 SHERRI/ 72 GM PROT/D BMI 39.6, MORBID OBESITY ALISIA SCORE 12, RISK FOR SKIN BREAKDOWN IF PATIENT TOLERATES FEEDING, CONSIDER INCREASE RATE TO 60 ML/HR TO PROVIDE 1728 SHERRI/ 86 GM. PROT/ D, WILL MEET 100 % DAIRY MANAGEMENT SPECIALIST FOR NUTRIENT NEEDS. IF UNABLE TO INCREASE TO GOAL RATE VITAMIN / MINERAL SUPPLEMENT WILL BE CONSIDERED.
--- NOTE | 2018-12-25 15:54 | PN ---
Date/Time of Note Date/Time of Note DATE: 12/25/18 TIME: 15:52 Assessment/Plan VTE Prophylaxis Risk score (from Nsg)>0 risk: 9 SCD applied (from Nsg): Yes Pharmacological prophylaxis: LMWH Lines/Catheters IV Catheter Type (from Nrsg): Central Line Central line still needed: Yes Urinary Cath still in place: Yes Reason Cath still needed: terminal illness/intractable pain Assessment/Plan Hospital Course A/P 1 Out Of Hospital Arrest w rosc; sp cpr; cont support care; will ask family to consider dnr/ withdrawal of care 2 CAD? cath fairly unremarkable for acute process 3 Htn 4 Tobacco 5 Arf/Oliguria/ Atn 6 Chr anticoagulate use? 7 Anoxic Injury/ Encephalopathy. eeg/ mri/ ct when stable. 8 Ftt 9 Met Acidosis S: 12/23 on cooling measures. updated family; no recent events apparently. has relatives that work here. 12/24 no arrhythmias/ seizures. now on 60% fio2. pupils dilated today 12/25: fixed pupils, no gag/ corneals/ ct concerning for diffuse injury O: sr PE no pallor/ c bruits/ droop; ett c/d/i reg s1s2 no mrg ctab/ mechanical; lt tlc c/d/i bs dimin; nt nd; no rrg no edema/ Homans; dry lwr ext Neuro: nonfocal/ sedated Result Diagram: 12/25/18 0540 12/25/18 0540 Results 24hrs Laboratory Tests Test 12/24/18 16:14 12/24/18 17:03 12/24/18 17:30 12/24/18 18:06 Bedside Glucose 96 100 96 Blood Gas Blood arterial Specimen Source Arterial Blood 12/24/2018 6:00: Date Drawn 00 PM Arterial Blood 7.431 pH (Temp corrected ) Arterial Blood 25.1 L pCO2 (Temp correct) Arterial Blood 74.0 L pO2 (Temp corrected ) Arterial Blood 16.7 L HCO3 Arterial Blood -6.6 L Base Excess Arterial Blood 96.3 Oxygen Saturati on Jack Test ACCEPTAB Arterial Blood Left Radial Gas Puncture Site Arterial 0.8 Blood Carboxyhe moglobin Arterial Blood 0.4 Methemoglobin Blood Gas A-a 330.1 H O2 Differential Oxyhemoglobin 95.1 Percent Blood Gas 34.4 Temperature Blood Gas 28.0 Respiration Rate Blood Gas 28 Actual Respiration Rat e Blood Gas VENT - AC Modality FiO2 60.0 Blood Gas Tidal 550.0 Volume Blood Gas Low 8.0 PEEP Setting Blood Gas DT Notified Whom Blood Gas 12/24/2018 6:23: Notified Time 00 PM Test 12/24/18 18:11 12/24/18 18:49 12/24/18 19:57 12/24/18 21:00 White Blood 9.5 # Count Red Blood Count 5.11 Hemoglobin 13.9 L Hematocrit 42.1 Mean 82.4 Corpuscular Volume Mean 27.2 L Corpuscular Hemoglobin Mean 33.0 Corpuscular Hemoglobin Conc ent Red Cell 13.6 Distribution Width Platelet Count 135 L Mean Platelet 10.3 Volume Immature 0.500 H Granulocytes % Neutrophils % 83.5 H Lymphocytes % 10.8 L Monocytes % 4.9 Eosinophils % 0.2 Basophils % 0.1 Nucleated Red 0.0 Blood Cells % Immature 0.050 H Granulocytes # Neutrophils # 7.9 H Lymphocytes # 1.0 Monocytes # 0.5 Eosinophils # 0.0 Basophils # 0.0 Nucleated Red 0.0 Blood Cells # Sodium Level 139 Potassium Level 3.3 L Chloride Level 113 H Carbon Dioxide 17 L Level Anion Gap 9 Blood Urea 31 H Nitrogen Creatinine 1.81 H Est Glomerular 38 L Filtrat Rate mL/min Glucose Level 102 # Lactic Acid 1.6 Level Calcium Level 7.4 L Phosphorus 2.7 Level Magnesium Level 2.4 Troponin I 1.240 *H Bedside Glucose 108 106 104 Test 12/24/18 21:56 12/24/18 22:00 12/24/18 22:55 12/24/18 23:00 Bedside Glucose 105 106 Blood Gas Blood arterial Blood Specimen arterial Source Arterial Blood 12/24/2018 6:00: 12/24/2018 11:2 Date Drawn 00 PM 5:24 PM Arterial Blood 7.431 7.378 pH (Temp corrected ) Arterial Blood 25.1 L 27.6 L pCO2 (Temp correct) Arterial Blood 74.0 L 69.7 L pO2 (Temp corrected ) Arterial Blood 16.7 L 16.1 L HCO3 Arterial Blood -6.6 L -7.8 L Base Excess Arterial Blood 96.3 94.4 L Oxygen Saturati on Jack Test ACCEPTAB ACCEPTAB Arterial Blood Left Radial Right Radial Gas Puncture Site Arterial 0.8 0.4 Blood Carboxyhe moglobin Arterial Blood 0.4 0.2 Methemoglobin Blood Gas A-a 330.1 H 257.3 H O2 Differential Oxyhemoglobin 95.1 93.8 Percent Blood Gas 34.4 35.8 Temperature Blood Gas 28.0 28.0 Respiration Rate Blood Gas 28 Actual Respiration Rat e Blood Gas VENT - AC VENT - AC Modality FiO2 60.0 50.0 Blood Gas Tidal 550.0 550.0 Volume Blood Gas Low 8.0 8.0 PEEP Setting Blood Gas DT CMV Notified Whom Blood Gas 12/24/2018 6:23: 12/24/2018 11:3 Notified Time 00 PM 3:04 PM Test 12/24/18 23:57 12/25/18 00:22 12/25/18 00:30 12/25/18 02:21 Bedside Glucose 105 108 White Blood 8.3 Count Red Blood Count 4.81 Hemoglobin 13.4 L Hematocrit 39.9 L Mean 83.0 Corpuscular Volume Mean 27.9 L Corpuscular Hemoglobin Mean 33.6 Corpuscular Hemoglobin Conc ent Red Cell 13.7 Distribution Width Platelet Count 118 L Mean Platelet 10.3 Volume Immature 0.400 Granulocytes % Neutrophils % 83.9 H Lymphocytes % 10.3 L Monocytes % 4.6 Eosinophils % 0.7 Basophils % 0.1 Nucleated Red 0.0 Blood Cells % Immature 0.030 Granulocytes # Neutrophils # 6.9 Lymphocytes # 0.9 Monocytes # 0.4 Eosinophils # 0.1 Basophils # 0.0 Nucleated Red 0.0 Blood Cells # Sodium Level 138 Potassium Level 3.2 L Chloride Level 112 H Carbon Dioxide 17 L Level Anion Gap 9 Blood Urea 30 H Nitrogen Creatinine 2.30 H Est Glomerular 29 L Filtrat Rate mL/min Glucose Level 108 Lactic Acid 1.3 Level Calcium Level 7.3 L Phosphorus 2.6 Level Magnesium Level 2.2 Troponin I 1.340 *H Urine Random 37.58 Creatinine Urine Random 34 Sodium Test 12/25/18 04:30 12/25/18 05:00 12/25/18 05:40 12/25/18 06:00 Bedside Glucose 109 Blood Gas Blood arterial Specimen Source Arterial Blood 12/25/2018 4:46: Date Drawn 04 AM Arterial Blood 7.398 pH (Temp corrected ) Arterial Blood 26.5 L pCO2 (Temp correct) Arterial Blood 69.3 L pO2 (Temp corrected ) Arterial Blood 16.0 L HCO3 Arterial Blood -7.1 L Base Excess Arterial Blood 94.0 L Oxygen Saturati on Jack Test ACCEPTAB Arterial Blood Right Radial Gas Puncture Site Arterial 0.3 Blood Carboxyhe moglobin Arterial Blood 0.3 Methemoglobin Blood Gas A-a 257.4 H O2 Differential Oxyhemoglobin 93.4 Percent Blood Gas 37.0 Temperature Blood Gas 28.0 Respiration Rate Blood Gas 28 Actual Respiration Rat e Blood Gas VENT - AC Modality FiO2 50.0 Blood Gas Tidal 550.0 Volume Blood Gas Low 8.0 PEEP Setting Blood Gas 31.0 Inspiratory Pressure Blood Gas MM Notified Whom Blood Gas 12/25/2018 4:54: Notified Time 47 AM White Blood 7.7 Count Red Blood Count 4.79 Hemoglobin 13.3 L Hematocrit 39.7 L Mean 82.9 Corpuscular Volume Mean 27.8 L Corpuscular Hemoglobin Mean 33.5 Corpuscular Hemoglobin Conc ent Red Cell 13.7 Distribution Width Platelet Count 117 L Mean Platelet 10.5 H Volume Immature 0.700 H Granulocytes % Neutrophils % 83.3 H Lymphocytes % 10.7 L Monocytes % 4.2 Eosinophils % 0.8 Basophils % 0.3 Nucleated Red 0.0 Blood Cells % Immature 0.050 H Granulocytes # Neutrophils # 6.4 Lymphocytes # 0.8 Monocytes # 0.3 Eosinophils # 0.1 Basophils # 0.0 Nucleated Red 0.0 Blood Cells # Sodium Level 139 Potassium Level 3.0 L Chloride Level 115 H Carbon Dioxide 18 L Level Anion Gap 6 Blood Urea 30 H Nitrogen Creatinine 2.45 H Est Glomerular 27 L Filtrat Rate mL/min Glucose Level 117 Calcium Level 7.5 L Phosphorus 2.3 L Level Total Bilirubin 0.6 Direct 0.00 Bilirubin Indirect 0.6 Bilirubin Aspartate Amino 75 #H Transf (AST/SGO T) Alanine 46 Aminotransferas e (ALT/SGPT) Alkaline 53 Phosphatase Total Protein 5.0 L Albumin 2.6 L Globulin 2.40 Albumin/Globuli 1.08 n Ratio Magnesium Level 2.2 Test 12/25/18 06:07 12/25/18 07:52 12/25/18 10:25 12/25/18 12:58 Bedside Glucose 118 122 119 117 Exam/Review of Systems Exam Vitals Vital Signs Date Temp Pulse Resp B/P (MAP) Pulse Ox O2 O2 Flow FiO2 Time Delivery Rate 12/25/18 68 28 95 55 15:30 12/25/18 111/57 15:00 (75) 12/25/18 98.3 Mechanical 12:00 Ventilator Intake and Output 12/24/18 12/24/18 12/25/18 1515:00 23:00 07:00 IntakeIntake Total 2193.508 ml 1689.821 ml 1089.818 ml OutputOutput Total 65 ml 14 ml 2052 ml BalanceBalance 2128.508 ml 1675.821 ml -962.182 ml Results Results 24hrs Laboratory Tests Test 12/24/18 16:14 12/24/18 17:03 12/24/18 17:30 12/24/18 18:06 Bedside Glucose 96 100 96 Blood Gas Blood arterial Specimen Source Arterial Blood 12/24/2018 6:00: Date Drawn 00 PM Arterial Blood 7.431 pH (Temp corrected ) Arterial Blood 25.1 L pCO2 (Temp correct) Arterial Blood 74.0 L pO2 (Temp corrected ) Arterial Blood 16.7 L HCO3 Arterial Blood -6.6 L Base Excess Arterial Blood 96.3 Oxygen Saturati on Jack Test ACCEPTAB Arterial Blood Left Radial Gas Puncture Site Arterial 0.8 Blood Carboxyhe moglobin Arterial Blood 0.4 Methemoglobin Blood Gas A-a 330.1 H O2 Differential Oxyhemoglobin 95.1 Percent Blood Gas 34.4 Temperature Blood Gas 28.0 Respiration Rate Blood Gas 28 Actual Respiration Rat e Blood Gas VENT - AC Modality FiO2 60.0 Blood Gas Tidal 550.0 Volume Blood Gas Low 8.0 PEEP Setting Blood Gas DT Notified Whom Blood Gas 12/24/2018 6:23: Notified Time 00 PM Test 12/24/18 18:11 12/24/18 18:49 12/24/18 19:57 12/24/18 21:00 White Blood 9.5 # Count Red Blood Count 5.11 Hemoglobin 13.9 L Hematocrit 42.1 Mean 82.4 Corpuscular Volume Mean 27.2 L Corpuscular Hemoglobin Mean 33.0 Corpuscular Hemoglobin Conc ent Red Cell 13.6 Distribution Width Platelet Count 135 L Mean Platelet 10.3 Volume Immature 0.500 H Granulocytes % Neutrophils % 83.5 H Lymphocytes % 10.8 L Monocytes % 4.9 Eosinophils % 0.2 Basophils % 0.1 Nucleated Red 0.0 Blood Cells % Immature 0.050 H Granulocytes # Neutrophils # 7.9 H Lymphocytes # 1.0 Monocytes # 0.5 Eosinophils # 0.0 Basophils # 0.0 Nucleated Red 0.0 Blood Cells # Sodium Level 139 Potassium Level 3.3 L Chloride Level 113 H Carbon Dioxide 17 L Level Anion Gap 9 Blood Urea 31 H Nitrogen Creatinine 1.81 H Est Glomerular 38 L Filtrat Rate mL/min Glucose Level 102 # Lactic Acid 1.6 Level Calcium Level 7.4 L Phosphorus 2.7 Level Magnesium Level 2.4 Troponin I 1.240 *H Bedside Glucose 108 106 104 Test 12/24/18 21:56 12/24/18 22:00 12/24/18 22:55 12/24/18 23:00 Bedside Glucose 105 106 Blood Gas Blood arterial Blood Specimen arterial Source Arterial Blood 12/24/2018 6:00: 12/24/2018 11:2 Date Drawn 00 PM 5:24 PM Arterial Blood 7.431 7.378 pH (Temp corrected ) Arterial Blood 25.1 L 27.6 L pCO2 (Temp correct) Arterial Blood 74.0 L 69.7 L pO2 (Temp corrected ) Arterial Blood 16.7 L 16.1 L HCO3 Arterial Blood -6.6 L -7.8 L Base Excess Arterial Blood 96.3 94.4 L Oxygen Saturati on Jack Test ACCEPTAB ACCEPTAB Arterial Blood Left Radial Right Radial Gas Puncture Site Arterial 0.8 0.4 Blood Carboxyhe moglobin Arterial Blood 0.4 0.2 Methemoglobin Blood Gas A-a 330.1 H 257.3 H O2 Differential Oxyhemoglobin 95.1 93.8 Percent Blood Gas 34.4 35.8 Temperature Blood Gas 28.0 28.0 Respiration Rate Blood Gas 28 Actual Respiration Rat e Blood Gas VENT - AC VENT - AC Modality FiO2 60.0 50.0 Blood Gas Tidal 550.0 550.0 Volume Blood Gas Low 8.0 8.0 PEEP Setting Blood Gas DT CMV Notified Whom Blood Gas 12/24/2018 6:23: 12/24/2018 11:3 Notified Time 00 PM 3:04 PM Test 12/24/18 23:57 12/25/18 00:22 12/25/18 00:30 12/25/18 02:21 Bedside Glucose 105 108 White Blood 8.3 Count Red Blood Count 4.81 Hemoglobin 13.4 L Hematocrit 39.9 L Mean 83.0 Corpuscular Volume Mean 27.9 L Corpuscular Hemoglobin Mean 33.6 Corpuscular Hemoglobin Conc ent Red Cell 13.7 Distribution Width Platelet Count 118 L Mean Platelet 10.3 Volume Immature 0.400 Granulocytes % Neutrophils % 83.9 H Lymphocytes % 10.3 L Monocytes % 4.6 Eosinophils % 0.7 Basophils % 0.1 Nucleated Red 0.0 Blood Cells % Immature 0.030 Granulocytes # Neutrophils # 6.9 Lymphocytes # 0.9 Monocytes # 0.4 Eosinophils # 0.1 Basophils # 0.0 Nucleated Red 0.0 Blood Cells # Sodium Level 138 Potassium Level 3.2 L Chloride Level 112 H Carbon Dioxide 17 L Level Anion Gap 9 Blood Urea 30 H Nitrogen Creatinine 2.30 H Est Glomerular 29 L Filtrat Rate mL/min Glucose Level 108 Lactic Acid 1.3 Level Calcium Level 7.3 L Phosphorus 2.6 Level Magnesium Level 2.2 Troponin I 1.340 *H Urine Random 37.58 Creatinine Urine Random 34 Sodium Test 12/25/18 04:30 12/25/18 05:00 12/25/18 05:40 12/25/18 06:00 Bedside Glucose 109 Blood Gas Blood arterial Specimen Source Arterial Blood 12/25/2018 4:46: Date Drawn 04 AM Arterial Blood 7.398 pH (Temp corrected ) Arterial Blood 26.5 L pCO2 (Temp correct) Arterial Blood 69.3 L pO2 (Temp corrected ) Arterial Blood 16.0 L HCO3 Arterial Blood -7.1 L Base Excess Arterial Blood 94.0 L Oxygen Saturati on Jack Test ACCEPTAB Arterial Blood Right Radial Gas Puncture Site Arterial 0.3 Blood Carboxyhe moglobin Arterial Blood 0.3 Methemoglobin Blood Gas A-a 257.4 H O2 Differential Oxyhemoglobin 93.4 Percent Blood Gas 37.0 Temperature Blood Gas 28.0 Respiration Rate Blood Gas 28 Actual Respiration Rat e Blood Gas VENT - AC Modality FiO2 50.0 Blood Gas Tidal 550.0 Volume Blood Gas Low 8.0 PEEP Setting Blood Gas 31.0 Inspiratory Pressure Blood Gas MM Notified Whom Blood Gas 12/25/2018 4:54: Notified Time 47 AM White Blood 7.7 Count Red Blood Count 4.79 Hemoglobin 13.3 L Hematocrit 39.7 L Mean 82.9 Corpuscular Volume Mean 27.8 L Corpuscular Hemoglobin Mean 33.5 Corpuscular Hemoglobin Conc ent Red Cell 13.7 Distribution Width Platelet Count 117 L Mean Platelet 10.5 H Volume Immature 0.700 H Granulocytes % Neutrophils % 83.3 H Lymphocytes % 10.7 L Monocytes % 4.2 Eosinophils % 0.8 Basophils % 0.3 Nucleated Red 0.0 Blood Cells % Immature 0.050 H Granulocytes # Neutrophils # 6.4 Lymphocytes # 0.8 Monocytes # 0.3 Eosinophils # 0.1 Basophils # 0.0 Nucleated Red 0.0 Blood Cells # Sodium Level 139 Potassium Level 3.0 L Chloride Level 115 H Carbon Dioxide 18 L Level Anion Gap 6 Blood Urea 30 H Nitrogen Creatinine 2.45 H Est Glomerular 27 L Filtrat Rate mL/min Glucose Level 117 Calcium Level 7.5 L Phosphorus 2.3 L Level Total Bilirubin 0.6 Direct 0.00 Bilirubin Indirect 0.6 Bilirubin Aspartate Amino 75 #H Transf (AST/SGO T) Alanine 46 Aminotransferas e (ALT/SGPT) Alkaline 53 Phosphatase Total Protein 5.0 L Albumin 2.6 L Globulin 2.40 Albumin/Globuli 1.08 n Ratio Magnesium Level 2.2 Test 12/25/18 06:07 12/25/18 07:52 12/25/18 10:25 12/25/18 12:58 Bedside Glucose 118 122 119 117 Medications Medication Current Medications Sodium Chloride 1,000 ml @ 100 mls/hr Q10H IV Last administered on 12/25/18at 05:29; Admin Dose 100 MLS/HR; Start 12/23/18 at 05:44; Status Hold IV Flush (NS 3 ml) 3 ml PER PROTOCOL IV ; Start 12/23/18 at 06:00 Ondansetron HCl (Zofran Inj) 4 mg Q6H PRN IV NAUSEA/VOMITING; Start 12/23/18 at 06:00 Pantoprazole (Protonix Iv) 40 mg DAILY@06 IV Last administered on 12/25/18at 05:29; Admin Dose 40 MG; Start 12/23/18 at 06:00 Insulin Aspart (Novolog Insulin Pen) NOVOLOG *MILD* ALGORITHM Q4 SC ; Start 12/23/18 at 09:00; Status Hold Miscellaneous Information 1 ea NOTE XX ; Start 12/23/18 at 06:30 Glucose (Glutose) 15 gm Q15M PRN PO DECREASED GLUCOSE; Start 12/23/18 at 06:30 Glucose (Glutose) 22.5 gm Q15M PRN PO DECREASED GLUCOSE; Start 12/23/18 at 06:30 Dextrose (D50w Syringe) 25 ml Q15M PRN IV DECREASED GLUCOSE; Start 12/23/18 at 06:30 Dextrose (D50w Syringe) 50 ml Q15M PRN IV DECREASED GLUCOSE; Start 12/23/18 at 06:30 Glucagon (Glucagen) 1 mg Q15M PRN IM DECREASED GLUCOSE; Start 12/23/18 at 06:30 Glucose (Glutose) 15 gm Q15M PRN BUCCAL DECREASED GLUCOSE; Start 12/23/18 at 06:30 Fentanyl 100 ml @ 2.5 mls/hr TITRATE IV Last administered on 12/24/18at 17:33; Admin Dose 2.5 MLS/HR; Start 12/23/18 at 10:00 Insulin Human Regular 100 unit/ Sodium Chloride 100 ml @ 0 mls/hr PER PROTOCOL IV Last administered on 12/24/18at 19:46; Admin Dose 0.2 MLS/HR; Start 12/23/18 at 10:00 Miscellaneous Information (* Miscellaneous Pharmacy Order) Treatment of Hypoglycemia: 1.BG 51... Per protocol XX ; Start 12/23/18 at 10:00 Dextrose (D50w Syringe) 25 ml Q15M PRN IV .DECREASED GLUCOSE; Start 12/23/18 at 10:00 Dextrose (D50w Syringe) 50 ml Q15M PRN IV .DECREASED GLUCOSE; Start 12/23/18 at 10:00 Vecuronium [place] 100 mg/ Dextrose 100 ml @ 6.82 mls/hr TITRATE IV Last administered on 12/24/18at 04:12; Admin Dose 0.05 MLS/HR; Start 12/23/18 at 10:30 Propofol 100 ml @ 4.091 mls/ hr Q12H IV Last administered on 12/24/18at 20:05; Admin Dose 8.182 MLS/HR; Start 12/23/18 at 11:00 Piperacillin Sod/ Tazobactam Sod 100 ml @ 200 mls/hr Q8 IVPB Last administered on 12/25/18at 13:29; Admin Dose 200 MLS/HR; Start 12/23/18 at 14:00 Eye Lubricant (Akwa Oint) 1 applic Q6H BOTH EYES Last administered on 12/25/18at 13:30; Admin Dose 1 APPLIC; Start 12/23/18 at 13:00 Nitroglycerin/ Dextrose 250 ml @ 1.5 mls/hr TITRATE IV Last administered on 12/24/18 07:10; Admin Dose 60 MLS/HR; Start 12/23/18 at 13:00 Buspirone HCl (Buspar) 30 mg Q8 NGT Last administered on 12/25/18 05:29; Admin Dose 30 MG; Start 12/23/18 at 14:00 Acetaminophen (Tylenol Tab) 650 mg Q8 NGT Last administered on 12/25/18 05:30; Admin Dose 650 MG; Start 12/23/18 at 14:00 Eye Lubricant (Artificial Tears Oph) 2 drop Q6H BOTH EYES Last administered on 12/25/18 13:29; Admin Dose 2 DROP; Start 12/23/18 at 19:00 Potassium Chloride 50 ml @ 50 mls/hr K PROTOCOL PRN IVPB PENDING LAB VALUE Last administered on 12/24/18 03:05; Admin Dose 50 MLS/HR; Start 12/23/18 at 15:30 Magnesium Sulfate 50 ml @ 25 mls/hr PRN PRN IVPB MAG <2 Last administered on 12/24/18 09:08; Admin Dose 25 MLS/HR; Start 12/23/18 at 16:00 Midazolam HCl 50 ml @ 1 mls/hr TITRATE IV Last administered on 12/24/18 19:39; Admin Dose 2 MLS/HR; Start 12/23/18 at 16:30 Thiamine HCl (Vitamin B1) 100 mg DAILY IM Last administered on 12/24/18 09:10; Admin Dose 100 MG; Start 12/23/18 at 19:30 Albuterol (Proventil 0.083% (Neb)) 1.25 mg Q2H RESP THERAPY PRN HHN WHEEZING AND SOB; Start 12/23/18 at 23:00 Nicardipine HCl 200 ml @ 50 mls/hr TITRATE IV Last administered on 12/24/18 07:14; Admin Dose 50 MLS/HR; Start 12/24/18 at 07:00 Norepinephrine 250 ml @ 1.875 mls/ hr TITRATE IV Last administered on 12/25/18 13:46; Admin Dose 16.875 MLS/HR; Start 12/24/18 at 09:00 Sodium Chloride 500 ml @ 0 mls/hr Q0M PRN IV UNABLE TO VOID; Start 12/24/18 at 19:30 Diagnostic Test (Pha) (Accu-Chek) 1 ea Q2H XX ; Start 12/25/18 at 02:00 Sodium Bicarbonate 100 meq/Dextrose/ Sodium Chloride 1,100 ml @ 50 mls/hr Q22H IV Last administered on 12/25/18at 11:48; Admin Dose 50 MLS/HR; Start 12/25/18 at 10:00 KELL VILLA MD Dec 25, 2018 15:54
--- NOTE | 2018-12-25 16:05 | CONS ---
DATE OF ADMISSION: 12/23/2018 DATE OF CONSULTATION: TYPE OF CONSULTATION: Neurological. HISTORY OF PRESENT ILLNESS: The patient is a 68-year-old gentleman who was admitted 2 days ago follo wing cardiopulmonary arrest. Neurology services evaluated the patient already today, but I was asked by family member to examine patient as well. Status post hypothermia, rewarmed to normal temperatur e at 3:00 a.m. today. He was taken off sedation as well in the morning and so currently he is not se dated. CAT scan of the brain was done on admission showing global loss of ortega white matter delineat ion and suspected global hypoxic ischemia. Repeated CAT scan was done today. It is not officially r ead, but Dr. Peters, radiologist, stated that it worsened a great deal with generalized brain edema and signs of tentorial herniation. PAST MEDICAL HISTORY: Diabetes, coronary artery disease, hypertension. He used to be on anticoagula tion. The patient had several episodes of cardiac arrest also en route to the hospital as well as in the emergency room, total of 4 episodes. HOME MEDICATIONS: 1. Lactulose. 2. Xarelto. 3. Metformin. 4. Atorvastatin. 5. Naproxen. 6. Alprazolam. 7. Enalapril. 8. Captopril. CURRENT MEDICATIONS: 1. Nicardipine. 2. Thiamine. SOCIAL HISTORY: Tobacco use. No drugs. FAMILY HISTORY: Noncontributory. ALLERGIES: NONE. LABORATORY DATA: Show today hemoglobin 13, hematocrit 39, platelets 117. PT 16, PTT 31. Potassium 3, chloride 115, bicarbonate 18, BUN 30, creatinine 2.45. AST 75, total protein 5, albumin 2.6. Tro ponins 1.34. Tox screen was only positive for benzos. Urinalysis: 1+ hemoglobin, 2+ total protein. PHYSICAL EXAMINATION VITAL SIGNS: A 98.3 temperature, 70 pulse, respiration, he is on AC 28, blood pressure 112/45. GENERAL: Not sedated and intubated orally. HEENT: Normocephalic, atraumatic head. NECK: Supple, short. He is slightly obese. NEUROLOGIC: No response to voice, pain or commands. Eyes are closed. No response to visual threat. Pupils are fixed about 5 mm bilaterally. No eye movements on oculocephalic maneuver as well as on iced caloric testing. No corneal reflexes. No gag on suctioning. Flaccid tone in all extremities. No withdrawal to pain. IMPRESSION: Neurological examination is consistent with brain . EEG was requested by primary n euro team and if reading is consistent with brain then apnea test should be performed. I expla ined to the family members, daughters, at bedside current situation and reason for testing in attempt to differentiate if the patient already suffered brain . Dictated By: ROBERT NIX/LUBNA Conf#: [id number] DID#: [id number] CC: JONATHAN LUCERO MD; CHRISTIE JEFFERS MD; KELL VILLA MD;*EndCC*
--- NOTE | 2018-12-25 16:10 | NUR ---
CT OF HEAD COMPLETED AROUND 1245PM. CRITICAL RESULT FROM RADIOLOGY OBTAINED AROUND 1550PM BY Norma INMAN STATING TO LET ATTENDING KNOW THAT CT OF HEAD WAS "VERY BAD", DIFFUSE ANOXIC BRAIN INJURY AND EDEMA NOTED. INFORMED ATTEDNING THAT REVENUE AGENT COMING TO DO ORDERED EEG NOW. NO NEW ORDERS.
--- NOTE | 2018-12-25 17:22 | NUR ---
EOSS PT OFF SEDATION ENTIRE SHIFT. NO MOVEMENT NOTED. PUPILS REMAIN FIXED AND DILATED AT 5MM. HEAD CT ORDERED AND COMPLETED. RESULTS GIVEN TO ATTENDING. EEG COMPLETED AT BEDSIDE. RENTAL ULTRASOUND COMPLETED THIS MORNING. LEVOPHED AT 9MCG MOST OF DAY. INSULIN GTT BETWEEN 0.5 AND 1 U/HR. ATTENDING OK WITH NOT STARTING TUBE FEEDS DUE TO POOR PROGNOSIS AND NEED FOR FAMILY TALK. [place] REQUIRING 2-4 HOUR SALINE FLUSHES TO KEEP PATENT. DR FREEMAN AWARE AND ORDERED FLUSHES. FAMILY UPDATED AT BEDSIDE.
--- NOTE | 2018-12-25 17:51 | CONS ---
DATE OF ADMISSION: 12/23/2018 DATE OF CONSULTATION: TYPE OF CONSULTATION: Renal. REASON FOR CONSULTATION: Renal failure, electrolyte imbalance. HISTORY OF PRESENTING ILLNESS: This is a 68-year-old male with a past medical history of questionabl e diabetes, hypertension, history of coronary artery disease status post stent placement, was admitte d to intensive care unit on 12/23/2018 secondary to cardiac arrest at home. History is obtained from the chart. The patient went under CPR and return of circulation was found and diffuse ST depression s. The patient was seen by Dr. Carbone on 12/23/2018 and had emergent angiogram performed; félix rapp left main IFR was negative and RCA does not explain the arrest. The patient since then had been in tubated. On admission, creatinine was 1.06 and since then, creatinine had been up trending. It went up to 2.30. Yesterday, the patient was noted to have some decreased urine output; however the urine output improved after the West was being flushed. Vital signs today: His blood pressure 111/57, h eart rate 69, respirations 28, saturating 94%. Labs showed a sodium of 144, potassium 3.6, chloride 119, bicarbonate 18, BUN of 28, creatinine 2.64. Renal was consulted. PAST MEDICAL HISTORY: 1. Coronary artery disease. 2. Hypertension. 3. History of smoking. 4. The patient was on Xarelto. ALLERGIES: NONE. PAST SURGICAL HISTORY: Coronary artery disease post-stent. MEDICATIONS TAKING AT HOME: 1. Xarelto 20. 2. Atorvastatin 40. 3. Captopril. 4. Enalapril. 5. Alprazolam. 6. Naproxen. 7. Lactulose. 8. Metformin 1000 b.i.d. SOCIAL HISTORY: Smoker, smoked 1 pack of cigarettes per day. No alcohol or recreational drug use. FAMILY HISTORY: Noncontributory. REVIEW OF SYSTEMS: Could not be obtained. PHYSICAL EXAMINATION: VITAL SIGNS: Blood pressure is 103/69, heart rate 70, respirations 28, afebrile, 50% on mechanical v entilator. GENERAL: The patient is not sedated and intubated orally. HEENT: Normocephalic, atraumatic. NECK: Supple, short, is obese. NEUROLOGICAL: The patient has no response to voice, pain and commands. ABDOMEN: Soft, nontender, nondistended, positive normoactive bowel sounds. EXTREMITIES: Few rhonchi scattered bilaterally. EXTREMITIES: 1+ pitting edema. GENITOURINARY: The patient also has a West catheter with a red draining urine. LABORATORY DATA: Sodium 143, potassium of 3.6, chloride 119, bicarbonate 18, BUN of 28, creatinine 2 .64. White count , hemoglobin 13.3, platelet count 117. U-tox is positive for benzos. UA: 1+ hemoglobin, 2+ total protein, urine sodium 34. DIAGNOSTIC DATA: Renal ultrasound shows unremarkable right kidney is 12.9, left is 13 cm. Chest x-r ay: Improved aeration of both the lungs with mild residual edema, bibasilar atelectasis infiltrate. ASSESSMENT AND PLAN: This is a 68-year-old male with: 1. Status post cardiopulmonary arrest, status post hypothermia protocol. 2. Coronary artery disease. 3. Hypertension. 4. Acute renal failure likely secondary to hemodynamics. The patient was in cardiac arrest. On adm ission, creatinine was 1.06. The patient is also on IV antibiotics like Zosyn. The patient also rec eived a coronary angiogram on 12/23/2018 with some evidence of contrast nephropathy. Renal ultrasoun d is negative for any hydronephrosis. 5. Hypokalemia. 6. Metabolic acidosis. 7. Hypophosphatemia. 8. Hypocalcemia. PLAN: 1. At this period of time, the patient is admitted to ICU. 2. Continue with pressor support to keep the SBP greater than 100. 3. Monitor urine output. 4. Monitor for contrast nephropathy. 5. We will switch to fluids with IV bicarbonate. 6. Replete potassium and phosphorus as needed. We will continue to follow the patient with you. Rest of the treatment will depend on the patient's hospitalization course. Dictated By: MARGARETTE FREEMAN RB/LUBNA Conf#: [id number] DID#: [id number] CC: KELL VILLA MD; JONATHAN LUCERO MD; CHRISTIE JEFFERS MD;*EndCC*
[2018-12-25] MEDS ORDERED: CA CARBONATE (250 MG/ML) 5ML CUP NGT ONE (18:00)
--- NOTE | 2018-12-25 18:45 | NUR ---
DR FREEMAN NOTIFIED AND AWARE OF RECENT BMP AND POTASSIUM RESULTS. NEW ORDERS RECEIVED FOR CALCIUM REPLETION ONLY.
--- NOTE | 2018-12-25 21:01 | EEG ---
EEG NOTE Report Details DATE OF TEST: 12/25/18 HISTORY: The patient is a 68-year-old M who presents with coma s/p cardiac arrest. This EEG is requested to confirm cortical inactivity. SEDATION: None. CONDITIONS OF RECORDING: This EEG was recorded digitally on the Interactive Fate machine, using the International 10-20 System of electrodes plus anterior temporals and [place]. STATES SAMPLED: Comatose. FINDINGS: There is electrocerebral inactivity throughout. There is continuous EKG artifact. IMPRESSION: Electrocerebral inactivity COMMENT: Could be consistent with the clinical diagnosis of brain . BRONWYN JANG Dec 25, 2018 21:01
[2018-12-25] MEDS: PROPOFOL 100 ML IV SCH (21:56)
[2018-12-26] VITALS (74 sets, daily range): BP systolic 69–125; BP diastolic 37–61; PULSE 0–75; RESP 0–29
[2018-12-26] MEDS: ACCU-CHEK XX SCH ×5 (00:08→07:58)
[2018-12-26] MEDS: OCULAR LUBRICANT 3.5 GM OPH OINT BOTH EYES SCH ×3 (01:20→13:58)
[2018-12-26] MEDS: ARTIFICIAL TEARS 15 ML OPH BOTH EYES SCH ×3 (01:20→13:57)
[2018-12-26] MEDS: NORepinephrine 8MG/250 ML (PMX 250 ML IV SCH (04:23)
[2018-12-26] MEDS: BUSPIRONE 5 MG TAB NGT SCH ×2 (06:00→14:00)
[2018-12-26] MEDS: PIPER-TAZO 3.375 GM IV (PMX) 100 ML IVPB SCH ×2 (06:05→14:02)
[2018-12-26] MEDS: PANTOPRAZOLE 40 MG INJ IV SCH (06:06)
[2018-12-26] MEDS: ACETAMINOPHEN 325 MG TAB NGT SCH ×2 (06:06→14:00)
[2018-12-26] MEDS: THIAMINE 200 MG INJ IM SCH (09:39)
[2018-12-26] MEDS: SODIUM BICARBONATE (IV ADD) 100 MEQ in DEXTROSE 5%-0.45% NACL 1,000 ML IV SCH (09:39)
--- NOTE | 2018-12-26 09:53 | CONS ---
Consult Date/Type/Reason Admit Date/Time Dec 23, 2018 at 05:39 Initial Consult Date Type of Consult Pulmonary Requesting Provider: ALFONSO SANTANA MD, [facility] Date/Time of Note DATE: 12/26/18 TIME: 09:52 Subjective Patient unresponsive on mechanical ventilation. Pupils fixed and dilated. No gag reflex. No spontaneous respiratory effort. EEG confirms absence of electrical activity consistent with brain . Family are aware and at bedside. Objective Vital Signs Date Temp Pulse Resp B/P (MAP) Pulse Ox O2 O2 Flow FiO2 Time Delivery Rate 12/26/18 68 21 116/52 97 08:45 (73) 12/26/18 Mechanical 08:30 Ventilator 12/26/18 70 08:00 12/26/18 97.6 08:00 Intake and Output 12/25/18 12/25/18 12/26/18 1515:00 23:00 07:00 IntakeIntake Total 893.625 ml 641.200 ml 630.50 ml OutputOutput Total 1777 ml 1365 ml 1350 ml BalanceBalance -883.375 ml -723.800 ml -719.50 ml Exam PHYSICAL EXAMINATION: GENERAL: Morbidly obese gentleman, orally intubated on mechanical ventilation, VITAL SIGNS: NECK: Supple. No JVD or lymphadenopathy. Pupils fixed and dilated no gag reflex no corneal reflex. CARDIAC: S1, S2, no added sounds or murmurs. CHEST: Diminished air entry bilaterally. ABDOMEN: Soft, nontender. No guarding or rebound. EXTREMITIES: No cyanosis, clubbing, 1+ edema. NEUROLOGIC: Generalized weakness, unable to assess. Vent Setting Ventilator Support Mode: AC Fraction of Inspired Oxygen pe: 70 Positive End Expiratory Pressu: 5.0 Results/Medications Result Diagram: 12/26/18 0545 12/25/18 1553 Results 24 hrs Laboratory Tests Test 12/25/18 10:25 12/25/18 12:58 12/25/18 15:37 12/25/18 15:53 Bedside Glucose 119 117 128 Sodium Level 144 Potassium Level 3.6 Chloride Level 119 H Carbon Dioxide Level 18 L Anion Gap 7 Blood Urea Nitrogen 28 H Creatinine 2.64 H Est Glomerular 24 L Filtrat Rate mL/min Glucose Level 122 Calcium Level 7.6 L Test 12/25/18 17:27 12/25/18 19:53 12/25/18 21:52 12/25/18 23:57 Bedside Glucose 113 114 103 103 Test 12/26/18 02:02 12/26/18 04:12 12/26/18 05:45 12/26/18 06:13 Bedside Glucose 110 95 111 White Blood Count 6.9 Red Blood Count 4.70 Hemoglobin 13.0 L Hematocrit 40.4 L Mean Corpuscular 86.0 Volume Mean Corpuscular 27.7 L Hemoglobin Mean Corpuscular 32.2 Hemoglobin Concent Red Cell 14.0 Distribution Width Platelet Count 122 L Mean Platelet Volume 10.6 H Immature 0.900 H Granulocytes % Neutrophils % 79.3 H Lymphocytes % 10.7 L Monocytes % 6.5 Eosinophils % 2.3 Basophils % 0.3 Nucleated Red Blood 0.0 Cells % Immature 0.060 H Granulocytes # Neutrophils # 5.5 Lymphocytes # 0.7 L Monocytes # 0.5 Eosinophils # 0.2 Basophils # 0.0 Nucleated Red Blood 0.0 Cells # Test 12/26/18 08:10 Bedside Glucose 113 Medications Current Medications Sodium Chloride 1,000 ml @ 100 mls/hr Q10H IV Last administered on 12/25/18at 05:29; Admin Dose 100 MLS/HR; Start 12/23/18 at 05:44; Status Hold IV Flush (NS 3 ml) 3 ml PER PROTOCOL IV ; Start 12/23/18 at 06:00 Ondansetron HCl (Zofran Inj) 4 mg Q6H PRN IV NAUSEA/VOMITING; Start 12/23/18 at 06:00 Pantoprazole (Protonix Iv) 40 mg DAILY@06 IV Last administered on 12/26/18at 06:06; Admin Dose 40 MG; Start 12/23/18 at 06:00 Miscellaneous Information 1 ea NOTE XX ; Start 12/23/18 at 06:30 Glucose (Glutose) 15 gm Q15M PRN PO DECREASED GLUCOSE; Start 12/23/18 at 06:30 Glucose (Glutose) 22.5 gm Q15M PRN PO DECREASED GLUCOSE; Start 12/23/18 at 06:30 Dextrose (D50w Syringe) 25 ml Q15M PRN IV DECREASED GLUCOSE; Start 12/23/18 at 06:30 Dextrose (D50w Syringe) 50 ml Q15M PRN IV DECREASED GLUCOSE; Start 12/23/18 at 06:30 Glucagon (Glucagen) 1 mg Q15M PRN IM DECREASED GLUCOSE; Start 12/23/18 at 06:30 Glucose (Glutose) 15 gm Q15M PRN BUCCAL DECREASED GLUCOSE; Start 12/23/18 at 06:30 Fentanyl 100 ml @ 2.5 mls/hr TITRATE IV Last administered on 12/24/18 17:33; Admin Dose 2.5 MLS/HR; Start 12/23/18 at 10:00 Vecuronium [place] 100 mg/ Dextrose 100 ml @ 6.82 mls/hr TITRATE IV Last administered on 12/24/18 04:12; Admin Dose 0.05 MLS/HR; Start 12/23/18 at 10:30 Propofol 100 ml @ 4.091 mls/ hr Q12H IV Last administered on 12/24/18 20:05; Admin Dose 8.182 MLS/HR; Start 12/23/18 at 11:00 Piperacillin Sod/ Tazobactam Sod 100 ml @ 200 mls/hr Q8 IVPB Last administered on 12/26/18 06:05; Admin Dose 200 MLS/HR; Start 12/23/18 at 14:00 Eye Lubricant (Akwa Oint) 1 applic Q6H BOTH EYES Last administered on 12/26/18 06:06; Admin Dose 1 APPLIC; Start 12/23/18 at 13:00 Nitroglycerin/ Dextrose 250 ml @ 1.5 mls/hr TITRATE IV Last administered on 12/24/18 07:10; Admin Dose 60 MLS/HR; Start 12/23/18 at 13:00 Buspirone HCl (Buspar) 30 mg Q8 NGT Last administered on 12/25/18 05:29; Admin Dose 30 MG; Start 12/23/18 at 14:00 Acetaminophen (Tylenol Tab) 650 mg Q8 NGT Last administered on 12/26/18 06:06; Admin Dose 650 MG; Start 12/23/18 at 14:00 Eye Lubricant (Artificial Tears Oph) 2 drop Q6H BOTH EYES Last administered on 12/26/18 06:06; Admin Dose 2 DROP; Start 12/23/18 at 19:00 Potassium Chloride 50 ml @ 50 mls/hr K PROTOCOL PRN IVPB PENDING LAB VALUE Last administered on 12/24/18at 03:05; Admin Dose 50 MLS/HR; Start 12/23/18 at 15:30 Magnesium Sulfate 50 ml @ 25 mls/hr PRN PRN IVPB MAG <2 Last administered on 12/24/18at 09:08; Admin Dose 25 MLS/HR; Start 12/23/18 at 16:00 Midazolam HCl 50 ml @ 1 mls/hr TITRATE IV Last administered on 12/24/18at 19:39; Admin Dose 2 MLS/HR; Start 12/23/18 at 16:30 Thiamine HCl (Vitamin B1) 100 mg DAILY IM Last administered on 12/26/18at 09:39; Admin Dose 100 MG; Start 12/23/18 at 19:30 Albuterol (Proventil 0.083% (Neb)) 1.25 mg Q2H RESP THERAPY PRN HHN WHEEZING AND SOB; Start 12/23/18 at 23:00 Nicardipine HCl 200 ml @ 50 mls/hr TITRATE IV Last administered on 12/24/18at 07:14; Admin Dose 50 MLS/HR; Start 12/24/18 at 07:00 Norepinephrine 250 ml @ 1.875 mls/ hr TITRATE IV Last administered on 12/26/18at 04:23; Admin Dose 1.875 MLS/HR; Start 12/24/18 at 09:00 Sodium Chloride 500 ml @ 0 mls/hr Q0M PRN IV UNABLE TO VOID; Start 12/24/18 at 19:30 Sodium Bicarbonate 100 meq/Dextrose/ Sodium Chloride 1,100 ml @ 50 mls/hr Q22H IV Last administered on 12/26/18at 09:39; Admin Dose 50 MLS/HR; Start 12/25/18 at 10:00 Insulin Aspart (Novolog Insulin Pen) NOVOLOG *MILD* ALGORI... Q6 SC ; Start 12/26/18 at 12:00 Assessment/Plan Hospital Course (Demo Recall) IMPRESSION AND PLAN: 1. Cardiopulmonary arrest with no identified target lesions identified on cardiac catheterization. 2. History of coronary artery disease. 3. History of diabetes mellitus. 4. Possible aspiration pneumonia. Right lower lobe infiltrate 5. Neurological examination consistent with brain . Plan 1. Appreciate neurology recommendations. Family aware. Will likely transition to comfort measures this afternoon. 1 legacy has been informed. Critical care time 40 minutes. ALFONSO SANTANA MD, [facility] Dec 26, 2018 09:53
[2018-12-26] MEDS: PROPOFOL 100 ML IV SCH (10:33)
[2018-12-26] MEDS ORDERED: INSULIN ASPART [NOVOLOG] 3 ML PEN SC SCH (12:00)
--- NOTE | 2018-12-26 13:00 | NUR ---
MD JONES PAGED MD JONES PAGED ABOUT PT NOT HAVING APNEA TEST PREFORMED. PT IS TOO UNSTABLE TO PREFORM TEST. RN LEFT MESSAGE, AWAITING CALL BACK.
--- NOTE | 2018-12-26 14:27 | PN ---
Date/Time of Note Date/Time of Note DATE: 12/26/18 TIME: 14:25 Assessment/Plan VTE Prophylaxis Risk score (from Nsg)>0 risk: 8 SCD applied (from Nsg): Yes SCD contraindicated: low risk/ambulating Pharmacological prophylaxis: LMWH Lines/Catheters IV Catheter Type (from Nrsg): Central Line Central line still needed: Yes Urinary Cath still in place: Yes Reason Cath still needed: urinary retention, terminal illness/intractable pain Assessment/Plan Hospital Course A/P 1 Out Of Hospital Arrest w rosc; sp cpr; cont support care; family agrees to withdrawal of care 2 CAD? cath fairly unremarkable for acute process 3 Htn 4 Tobacco 5 Arf/Oliguria/ Atn 6 Chr anticoagulate use? 7 Anoxic Injury/ Encephalopathy. eeg/ mri/ ct when stable. 8 Ftt 9 Met Acidosis S: 12/23 on cooling measures. updated family; no recent events apparently. has relatives that work here. 12/24 no arrhythmias/ seizures. now on 60% fio2. pupils dilated today 12/25: fixed pupils, no gag/ corneals/ ct concerning for diffuse injury 12/26: Met with family bedside. They presently agreed for comfort care. 1 Legacy to evaluate. All questions answered. O: sr PE no pallor/ c bruits/ droop; ett c/d/i reg s1s2 no mrg ctab/ mechanical; lt tlc c/d/i bs dimin; nt nd; no rrg no edema/ Homans; dry lwr ext Neuro: nonfocal/ sedated - Addendum: No corneal reflexes, fixed and dilated pupils, no gag, no spontaneous sounds not breathing over the vent. EEG consistent with diffuse brain damage. Clinically consistent with brain . Patient seen by neurology and critical care with noted the present situation Result Diagram: 12/26/18 0545 12/25/18 1553 Results 24hrs Laboratory Tests Test 12/25/18 15:37 12/25/18 15:53 12/25/18 17:27 12/25/18 19:53 Bedside Glucose 128 113 114 Sodium Level 144 Potassium Level 3.6 Chloride Level 119 H Carbon Dioxide Level 18 L Anion Gap 7 Blood Urea Nitrogen 28 H Creatinine 2.64 H Est Glomerular 24 L Filtrat Rate mL/min Glucose Level 122 Calcium Level 7.6 L Test 12/25/18 21:52 12/25/18 23:57 12/26/18 02:02 12/26/18 04:12 Bedside Glucose 103 103 110 95 Test 12/26/18 05:45 12/26/18 06:13 12/26/18 08:10 12/26/18 12:35 White Blood Count 6.9 Red Blood Count 4.70 Hemoglobin 13.0 L Hematocrit 40.4 L Mean Corpuscular 86.0 Volume Mean Corpuscular 27.7 L Hemoglobin Mean Corpuscular 32.2 Hemoglobin Concent Red Cell 14.0 Distribution Width Platelet Count 122 L Mean Platelet Volume 10.6 H Immature 0.900 H Granulocytes % Neutrophils % 79.3 H Lymphocytes % 10.7 L Monocytes % 6.5 Eosinophils % 2.3 Basophils % 0.3 Nucleated Red Blood 0.0 Cells % Immature 0.060 H Granulocytes # Neutrophils # 5.5 Lymphocytes # 0.7 L Monocytes # 0.5 Eosinophils # 0.2 Basophils # 0.0 Nucleated Red Blood 0.0 Cells # Bedside Glucose 111 113 123 Exam/Review of Systems Exam Vitals Vital Signs Date Temp Pulse Resp B/P (MAP) Pulse Ox O2 O2 Flow FiO2 Time Delivery Rate 12/26/18 90 100 14:13 12/26/18 61 12:00 12/26/18 21 116/52 08:45 (73) 12/26/18 Mechanical 08:30 Ventilator 12/26/18 97.6 08:00 Intake and Output 12/25/18 12/25/18 12/26/18 1515:00 23:00 07:00 IntakeIntake Total 893.625 ml 641.200 ml 630.50 ml OutputOutput Total 1777 ml 1365 ml 1350 ml BalanceBalance -883.375 ml -723.800 ml -719.50 ml Results Results 24hrs Laboratory Tests Test 12/25/18 15:37 12/25/18 15:53 12/25/18 17:27 12/25/18 19:53 Bedside Glucose 128 113 114 Sodium Level 144 Potassium Level 3.6 Chloride Level 119 H Carbon Dioxide Level 18 L Anion Gap 7 Blood Urea Nitrogen 28 H Creatinine 2.64 H Est Glomerular 24 L Filtrat Rate mL/min Glucose Level 122 Calcium Level 7.6 L Test 12/25/18 21:52 12/25/18 23:57 12/26/18 02:02 12/26/18 04:12 Bedside Glucose 103 103 110 95 Test 12/26/18 05:45 12/26/18 06:13 12/26/18 08:10 12/26/18 12:35 White Blood Count 6.9 Red Blood Count 4.70 Hemoglobin 13.0 L Hematocrit 40.4 L Mean Corpuscular 86.0 Volume Mean Corpuscular 27.7 L Hemoglobin Mean Corpuscular 32.2 Hemoglobin Concent Red Cell 14.0 Distribution Width Platelet Count 122 L Mean Platelet Volume 10.6 H Immature 0.900 H Granulocytes % Neutrophils % 79.3 H Lymphocytes % 10.7 L Monocytes % 6.5 Eosinophils % 2.3 Basophils % 0.3 Nucleated Red Blood 0.0 Cells % Immature 0.060 H Granulocytes # Neutrophils # 5.5 Lymphocytes # 0.7 L Monocytes # 0.5 Eosinophils # 0.2 Basophils # 0.0 Nucleated Red Blood 0.0 Cells # Bedside Glucose 111 113 123 Medications Medication Current Medications IV Flush (NS 3 ml) 3 ml PER PROTOCOL IV ; Start 12/23/18 at 06:00 Ondansetron HCl (Zofran Inj) 4 mg Q6H PRN IV NAUSEA/VOMITING; Start 12/23/18 at 06:00 Pantoprazole (Protonix Iv) 40 mg DAILY@06 IV Last administered on 12/26/18at 06:06; Admin Dose 40 MG; Start 12/23/18 at 06:00 Miscellaneous Information 1 ea NOTE XX ; Start 12/23/18 at 06:30 Glucose (Glutose) 15 gm Q15M PRN PO DECREASED GLUCOSE; Start 12/23/18 at 06:30 Glucose (Glutose) 22.5 gm Q15M PRN PO DECREASED GLUCOSE; Start 12/23/18 at 06:30 Dextrose (D50w Syringe) 25 ml Q15M PRN IV DECREASED GLUCOSE; Start 12/23/18 at 06:30 Dextrose (D50w Syringe) 50 ml Q15M PRN IV DECREASED GLUCOSE; Start 12/23/18 at 06:30 Glucagon (Glucagen) 1 mg Q15M PRN IM DECREASED GLUCOSE; Start 12/23/18 at 06:30 Glucose (Glutose) 15 gm Q15M PRN BUCCAL DECREASED GLUCOSE; Start 12/23/18 at 06:30 Fentanyl 100 ml @ 2.5 mls/hr TITRATE IV Last administered on 12/24/18 17:33; Admin Dose 2.5 MLS/HR; Start 12/23/18 at 10:00 Vecuronium [place] 100 mg/ Dextrose 100 ml @ 6.82 mls/hr TITRATE IV Last administered on 12/24/18 04:12; Admin Dose 0.05 MLS/HR; Start 12/23/18 at 10:30 Piperacillin Sod/ Tazobactam Sod 100 ml @ 200 mls/hr Q8 IVPB Last administered on 12/26/18 14:02; Admin Dose 200 MLS/HR; Start 12/23/18 at 14:00 Eye Lubricant (Akwa Oint) 1 applic Q6H BOTH EYES Last administered on 12/26/18 13:58; Admin Dose 1 APPLIC; Start 12/23/18 at 13:00 Buspirone HCl (Buspar) 30 mg Q8 NGT Last administered on 12/25/18 05:29; Admin Dose 30 MG; Start 12/23/18 at 14:00 Acetaminophen (Tylenol Tab) 650 mg Q8 NGT Last administered on 12/26/18 06:06; Admin Dose 650 MG; Start 12/23/18 at 14:00 Eye Lubricant (Artificial Tears Oph) 2 drop Q6H BOTH EYES Last administered on 12/26/18 13:57; Admin Dose 2 DROP; Start 12/23/18 at 19:00 Potassium Chloride 50 ml @ 50 mls/hr K PROTOCOL PRN IVPB PENDING LAB VALUE Last administered on 12/24/18 03:05; Admin Dose 50 MLS/HR; Start 12/23/18 at 15:30 Magnesium Sulfate 50 ml @ 25 mls/hr PRN PRN IVPB MAG <2 Last administered on 12/24/18 09:08; Admin Dose 25 MLS/HR; Start 12/23/18 at 16:00 Midazolam HCl 50 ml @ 1 mls/hr TITRATE IV Last administered on 12/24/18 19:39; Admin Dose 2 MLS/HR; Start 12/23/18 at 16:30 Thiamine HCl (Vitamin B1) 100 mg DAILY IM Last administered on 12/26/18 09:39; Admin Dose 100 MG; Start 12/23/18 at 19:30 Albuterol (Proventil 0.083% (Neb)) 1.25 mg Q2H RESP THERAPY PRN HHN WHEEZING AND SOB; Start 12/23/18 at 23:00 Sodium Chloride 500 ml @ 0 mls/hr Q0M PRN IV UNABLE TO VOID; Start 12/24/18 at 19:30 Insulin Aspart (Novolog Insulin Pen) NOVOLOG *MILD* ALGORI... Q6 SC ; Start 12/26/18 at 12:00 Morphine Sulfate (morphine) 1 mg Q10MIN PRN IV SEVERE PAIN LEVEL 7-10; Start 12/26/18 at 14:30 Lorazepam (Ativan) 6.8 mg Q10M PRN IV AGITATION/ANXIETY; Start 12/26/18 at 14:30; Status UNV Lorazepam (Ativan) 1 mg Q6H PRN IV AGITATION/ANXIETY; Start 12/26/18 at 14:30; Status UNV Morphine Sulfate/ Sodium Chloride 100 ml @ 1 mls/hr TITRATE IV ; Start 12/26/18 at 14:30; Status UNV KELL VILLA MD Dec 26, 2018 14:27
[2018-12-26] MEDS ORDERED: morphine 2 MG INJ IV PRN (14:30)
[2018-12-26] MEDS ORDERED: LORAZEPAM 2 MG INJ IV PRN ×3 (14:30→17:00)
[2018-12-26] MEDS ORDERED: morphine (DRIP) 100 MG/100 ML 100 ML IV SCH (15:00)
--- NOTE | 2018-12-26 17:20 | NUR ---
12/26/2018 17:14 PATIENT PRONOUCED PER PROTOCAL -S/P TERMINAL EXTUBATION / COMFORT MEASURES -FAMILY AT BEDSIDE-NO HEART TONES /NO CAROTID PULSE X1MIN/ASYSTOLE ON PAYROLL TECHNICIAN / NO BREATH SOUNDS / NO RESPIRATIONS X1MIN/PUPILS DILATED AND FIXED WITH NO RESPONSE TO LIGHT / NO RESPONSE TO PAINFUL STIMULI -RICHARD PENA PILLOWCASE CLEANER PHN NATIONAL EXPANSION RECRUITER
--- NOTE | 2018-12-26 18:00 | NUR ---
END OF SHIFT SUMMARY MD SANTANA ROUNDED IN THE MORNING. HAD CHANGED PT INSULIN GTT TO INSULIN SLIDING SCALE AT AROUND 1000. MD SANTANA TALKED TO FAMILY AND STATED THAT PT IS BRAIN ACCORDING TO ASSESSMENT, AND EEG. RN PROVIDED EMOTIONAL SUPPORT. FAMILY IS LEANING TOWARDS COMFORT MEASURES. PT DOES NOT WANT TO PROLONG PT POOR PROGNOSIS. APNEA TEST WAS NOT PREFORMED BC MD SANTANA STATED PT OXYGEN DEMAND IS TO HIGH AT FIO2 OF 70%. [facility] WAS UPDATED. [facility] WANTED TO KNOW WHEN TWO DOCTORS HAVE DIAGNOSED BRAIN . [facility] STATED THAT THEY WILL HAVE REPRESENTATIVES OUT HERE AT AROUND 1400. MD GOLDMAN ROUNDED ON PT. TALKED WITH FAMILY EXTENSIVELY. WHILE TALKING WITH FAMILY, RN NOTICED PT DESATURATING. RN BAGGED PT AND CHANGED FIO2 TO 100%. AT THAT TIME, PT FAMILY WANTED TO PLACE PT ON COMFORT MEASURES. [facility] WAS IMMEDIATELY CALLED TO LET THEM KNOW THAT FAMILY WANTED TO WITHDRAW CARE IMMEDIATELY. [facility] SENT THEIR TEAM OUT TO TALK TO FAMILY. [facility] TEAM ARRIVED AT [id number]. THEY TALKED TO FAMILY, AND REFUSED DONATION. PT WAS PLACED ON MORPHINE AT AROUND 1550, AND PLACED ON COMFORT MEASURE AT 1630. PT AT 1714, PRONOUNCED BY RICHARD VALDEZ. PT WAS PLACED ON COMFORT MEASURES AT AROUND 1630. EMOTIONAL SUPPORT PROVIDED TO FAMILY. [facility] WAS CALLED AT 1720. RN SPOKE TO ABRAHAN Marquez, FAMILY HAD DECLINED DONATIONS WHEN [facility] WAS AT BEDSIDE. THEY SAID BC OF [employer]IE[employer], PT WOULD NOT WANT TO DONATE. ALL OF PT NEEDS CARED FOR. AWAITING PARTNERSHIP MARKETING MANAGER FROM [facility].
--- NOTE | 2018-12-28 09:57 | DS ---
Date/Time of Note Date/Time of Note DATE: 12/28/18 TIME: 09:51 Discharge Summary Admission/Discharge Info Admit Date/Time Dec 23, 2018 at 05:39 Discharge Date/Time Dec 26, 2018 at 17:14 Patient Condition: Guarded Procedures CT Brain IMPRESSION: Global loss of ortega-white delineation, suspect for global hypoxic/ischemic event. There is no associated mass effect, midline shift or hydrocephalus. No definite intracranial hemorrhage, with note made of underlying mild to moderate atrophy present. Calcified intracranial atherosclerosis. Hx of Present Illness 68y M admitted post cp arrest at home. Hospital Course H COURSE; A/P 1 Out Of Hospital Arrest w rosc; sp cpr; seen by cardio, pul, 2 neurologists. sp hypothermia protocol. unfortunately, eeg/ ct/ clinically consistant w brain . family agreed to withdrawal of care. 1713 on 12/26. 2 CAD? cath fairly unremarkable for acute process 3 Htn 4 Tobacco 5 Arf/Oliguria/ Atn 6 Chr anticoagulate use? 7 Anoxic Injury/ Encephalopathy. 8 Ftt 9 Met Acidosis S: 12/23 on cooling measures. updated family; no recent events apparently. has relatives that work here. 12/24 no arrhythmias/ seizures. now on 60% fio2. pupils dilated today 12/25: fixed pupils, no gag/ corneals/ ct concerning for diffuse injury 12/26: Met with family bedside. Agreed for comfort care. 1 Legacy to evaluate. All questions answered. O: sr PE no pallor/ c bruits/ droop; ett c/d/i reg s1s2 no mrg ctab/ mechanical; lt tlc c/d/i bs dimin; nt nd; no rrg no edema/ Homans; dry lwr ext Neuro: nonfocal/ sedated - Addendum: No corneal reflexes, fixed and dilated pupils, no gag, no spontaneous breath sounds, not breathing over the vent. EEG consistent with diffuse brain damage. Clinically consistent with brain . Patient seen by neurology and critical care who have additionally noted the present situation. Home Meds Reported Medications Lactulose (Generlac) 10 Gm/15 Ml Solution, 10 GM PO DAILY 12/23/18 Rivaroxaban* (Xarelto*) 20 Mg Tablet, 20 MG PO WITH DINNER, TAB 12/23/18 Metformin* (Glucophage*) 1,000 Mg Tablet, 1000 MG PO BID, #60 TAB 12/23/18 Atorvastatin* (Atorvastatin*) 40 Mg Tablet, 40 MG PO QHS, #30 TAB 12/23/18 Naproxen* (Naprosyn*) 500 Mg Tablet, 500 MG PO DAILY, TAB 12/23/18 Alprazolam* (Alprazolam*) 0.5 Mg Tablet, 0.5 MG PO Q8H PRN for ANXIETY, TAB 12/23/18 Enalapril Maleate* (Enalapril Maleate*) 20 Mg Tablet, 20 MG PO DAILY for 30 D ays, #60 12/23/18 Captopril* (Captopril*) 25 Mg Tablet, 25 MG PO BID for 30 Days, #60 12/23/18 Primary Care Provider Care Physician No Primary Time spent on discharge: < 30 minutes KELL VILLA MD Dec 28, 2018 09:57
--- NOTE | 2018-12-28 10:00 | DES ---
Date/Time of Note Date/Time of Note DATE: 12/28/18 TIME: 09:57 Discharge/ Summary Admission/Discharge Info Admit Date/Time Dec 23, 2018 at 05:39 Date/Time 12/26/17. 17:14 Final Diagnosis Cardiac arrest Preliminary Cause of Cardiac Arrest; min Ac hypoxic Respiratory Failure; hours Hypertension; years Admit History 68y M admitted post cp arrest at home. Hospital Course H COURSE; A/P 1 Out Of Hospital Arrest w rosc; sp cpr; seen by cardio, pul, 2 neurologists. sp hypothermia protocol. unfortunately, eeg/ ct/ clinically consistant w brain de ath. family agreed to withdrawal of care. 171 on 12/26. 2 CAD? cath fairly unremarkable for acute process 3 Htn 4 Tobacco 5 Arf/Oliguria/ Atn 6 Chr anticoagulate use? 7 Anoxic Injury/ Encephalopathy. 8 Ftt 9 Met Acidosis S: 12/23 on cooling measures. updated family; no recent events apparently. has relatives that work here. 12/24 no arrhythmias/ seizures. now on 60% fio2. pupils dilated today 12/25: fixed pupils, no gag/ corneals/ ct concerning for diffuse injury 12/26: Met with family bedside. Agreed for comfort care. 1 Legacy to evaluate. All questions answered. O: sr PE no pallor/ c bruits/ droop; ett c/d/i reg s1s2 no mrg ctab/ mechanical; lt tlc c/d/i bs dimin; nt nd; no rrg no edema/ Homans; dry lwr ext Neuro: nonfocal/ sedated - Addendum: No corneal reflexes, fixed and dilated pupils, no gag, no spontaneous breath sounds, not breathing over the vent. EEG consistent with diffuse brain damage. Clinically consistent with brain . Patient seen by neurology and critical care who have additionally noted the present situation. Pending Labs/Cultures none Autopsy Request Indications TBD NOK Response to Request TBD Comments none KELL VILLA MD Dec 28, 2018 10:00
== END 2018-12-26 17:14 | disposition expired | DRG 286 ==
LOC: E/R 05:05 → ICU 05:39
PROVIDERS: ADMIT Internal Medicine; ATTEND Internal Medicine
PROC: 5A12012 Performance of Cardiac Output, Single, Manual (ICD-10-PCS; 2018-12-23)
PROC: 02HV33Z Insertion of Infusion Device into Superior Vena Cava, Percutaneous Approach (ICD-10-PCS; 2018-12-23)
PROC: 5A1945Z Respiratory Ventilation, 24-96 Consecutive Hours (ICD-10-PCS; 2018-12-23)
PROC: B211YZZ Fluoroscopy of Multiple Coronary Arteries using Other Contrast (ICD-10-PCS; 2018-12-23)
PROC: 4A023N7 Measurement of Cardiac Sampling and Pressure, Left Heart, Percutaneous Approach (ICD-10-PCS; principal; 2018-12-23 06:30)
PROC: 0BH17EZ Insertion of Endotracheal Airway into Trachea, Via Natural or Artificial Opening (ICD-10-PCS; 2018-12-23 06:30)
DX: I46.9 Cardiac arrest, cause unspecified (principal); J96.01 Acute respiratory failure with hypoxia; J69.0 Pneumonitis due to inhalation of food and vomit; N17.0 Acute kidney failure with tubular necrosis; E87.2 Acidosis; G93.1 Anoxic brain damage, not elsewhere classified; I25.10 Atherosclerotic heart disease of native coronary artery without angina pectoris; E11.9 Type 2 diabetes mellitus without complications; I10 Essential (primary) hypertension; E78.5 Hyperlipidemia, unspecified; E87.6 Hypokalemia; E83.51 Hypocalcemia; E83.39 Other disorders of phosphorus metabolism; E66.01 Morbid (severe) obesity due to excess calories; F17.200 Nicotine dependence, unspecified, uncomplicated; R62.7 Adult failure to thrive; Z95.5 Presence of coronary angioplasty implant and graft; Z68.39 Body mass index [BMI] 39.0-39.9, adult; Z79.01 Long term (current) use of anticoagulants; Z79.1 Long term (current) use of non-steroidal anti-inflammatories (NSAID); Z79.84 Long term (current) use of oral hypoglycemic drugs
CPT/HCPCS: 31500; 36600; 70450; 71045; 76775; 80048; 80053; 80061; 80076; 80307; 81001; 82150; 82607; 82746; 82803; 82962; 83036; 83605; 83690; 83735; 84100; 84155; 84300; 84439; 84443; 84480; 84484; 85025; 85384; 85610; 85730; 87040; 87070; 87081; 87086; 89220; 92950; 93005; 93306; 93458; 93571; 94002; 94003; 94770; 95819; C1887; C9113; C9606; J0171; J0360; J1265; J1644; J1815; J2250; J2270; J2543; J3010; J3411; J3475; J3480; J7030; J7040; J7042; J7050; Q9967